=== PATIENT | male | born 1940 | race Caucasian/White ===

== ENCOUNTER → 2016-10-30 | Outpatient (CLI) | payer OTHER, MEDICARE ==
[~2016-10-30] MED LIST: ASPI81TA28 PO; ATOR-24 PO; CLOP1TAB15 PO; DOCU-105 PO; ENOX80IN SQ; FLUT0.15 NAE; FRS/40 PO; FURO-85 PO; HYDR0.2C10 TD; IMDSR30 PO; LOSA25TA18 PO; MAGN400T6 PO; METO1TAB66 PO; NITR0.4S UT; OXGN; OXYC-57 PO; POTA10CA28 PO; PRLSR20 PO; SPIR25TA PO; TRAM-10 PO; WARF10TA PO; WARF5TAB7 PO; WARF7.5T PO
[2016-10-30 14:05] LABS: BLOOD UREA NITROGEN 32 mg/dl (7-18)
== END | disposition home or self-care (01) ==
LOC: C.LABBC 11:29
PROVIDERS: ATTEND Orthopaedic Surgery
DX: M25.512 Pain in left shoulder (principal)

== ENCOUNTER 2016-11-24 08:43 | Inpatient (IN) | payer OTHER, MEDICARE ==
[2016-11-09 13:39] VITALS: BMI 34.0
--- NOTE | 2016-11-09 14:14 | PAT Medication Instructions ---
Service Date Nov 09, 2016. Current Home Medication List Aspirin (Aspirin Ec), 81 MG PO Q2D Atorvastatin (Lipitor), 40 MG PO QPM Clopidogrel (Plavix), 75 MG PO QAM Docusate Sodium (Dulcolax Stool Softener), 100 MG PO HS PRN for Constipation Fluticasone Propionate (Nasal) (Flonase Allergy Relief), 2 SPRAYS GUERO PRN Furosemide (Lasix), 40 MG PO QAM Home O2 Therapy (Oxygen), 2 LITERS NA HS Hydrocortisone Valerate 0.2% (Westcort 0.2%), 1 APPLN TD BID/PRN Isosorbide Mononitrate (Isosorbide Mononitrate ER), 30 MG PO QPM Losartan Potassium (Cozaar), 25 MG PO QAM Magnesium Oxide (Mag-Ox), 400 MG PO BID Metoprolol Succinate (Toprol Xl), 50 MG PO BID Nitroglycerin (Nitrostat), 0.4 MG UT PRN Omeprazole (Prilosec), 20 MG PO DAILY PRN for PRN Potassium Chloride (Micro-K Ext Rel), 2 TAB PO BID Spironolactone (Aldactone), 25 MG PO QAM Tramadol (Ultram), 50-100 MG PO Q4H PRN for Pain Warfarin Sod (Jantoven), 5 MG PO 2XWEEK Warfarin Sodium (Coumadin), 7.5 MG PO 5XWK Medication Instructions For Your Scheduled Surgery - Check with surgeon/yard inspector for instructions: Aspirin (Aspirin Ec), 81 MG PO Q2D Clopidogrel (Plavix), 75 MG PO QAM Warfarin Sod (Jantoven), 5 MG PO 2XWEEK Warfarin Sodium (Coumadin), 7.5 MG PO 5XWK - Hold the following medications 24 hours prior to surgery: Hydrocortisone Valerate 0.2% (Westcort 0.2%), 1 APPLN TD BID/PRN - Hold the following medications the morning of surgery: Potassium Chloride (Micro-K Ext Rel), 2 TAB PO BID Spironolactone (Aldactone), 25 MG PO QAM Magnesium Oxide (Mag-Ox), 400 MG PO BID Losartan Potassium (Cozaar), 25 MG PO QAM Furosemide (Lasix), 40 MG PO QAM Docusate Sodium (Dulcolax Stool Softener), 100 MG PO HS PRN for Constipation - Take the following medications the morning of surgery with a sip of water: Tramadol (Ultram), 50-100 MG PO Q4H PRN for Pain (okay to take up to 4 hours prior to surgery if needed) Omeprazole (Prilosec), 20 MG PO DAILY PRN for PRN (if needed) Metoprolol Succinate (Toprol Xl), 50 MG PO BID Nitroglycerin (Nitrostat), 0.4 MG UT PRN (if needed) Fluticasone Propionate (Nasal) (Flonase Allergy Relief), 2 SPRAYS GUERO PRN (if needed) - Take the following medications as scheduled the night before surgery: Tramadol (Ultram), 50-100 MG PO Q4H PRN for Pain (if needed) Potassium Chloride (Micro-K Ext Rel), 2 TAB PO BID Metoprolol Succinate (Toprol Xl), 50 MG PO BID Nitroglycerin (Nitrostat), 0.4 MG UT PRN (if needed) Magnesium Oxide (Mag-Ox), 400 MG PO BID Isosorbide Mononitrate (Isosorbide Mononitrate ER), 30 MG PO QPM Home O2 Therapy (Oxygen), 2 LITERS NA HS Fluticasone Propionate (Nasal) (Flonase Allergy Relief), 2 SPRAYS GUERO PRN (if needed) Docusate Sodium (Dulcolax Stool Softener), 100 MG PO HS PRN for Constipation ( if needed) Atorvastatin (Lipitor), 40 MG PO QPM If you have any questions please call us at [phone] or [phone] or [phone]
--- NOTE | 2016-11-09 14:49 | DIAGNOSTIC IMAGING REPORT ---
CHEST 2 VIEWS ROUTINE CLINICAL HISTORY: PAT preoperative evaluation COMPARISON STUDY: 06/16/2014 FINDINGS: Mild stable cardiomegaly. Permanent unipolar cardiac pacemaker. Chronic pleural and parenchymal change bilaterally. No acute infiltrate. IMPRESSION: Chronic and postoperative change. No acute process. The above report was generated using voice recognition software. It may contain grammatical, syntax or spelling errors. Electronically signed by: Ryan Montenegro M.D. 11/09/2016 2:48 PM Dictated Date/Time: 11/09/2016 2:43 PM
[2016-11-09 14:51] LABS: BASO % 0.6 %; BASO ABS # 0.03 K/uL (0-0.2); COMPLETE YES; EOS % 1.6 %; HEMATOCRIT 35.5 % (42-52); IG% 0.2 %; LYMPH % 14.7 %; LYMPH ABS # 0.75 K/uL (1.2-3.4); MEAN CORPUSCULAR HEMOGLOBIN 31.1 pg (25-34); MEAN CORPUSCULAR HGB CONC 33.8 g/dl (32-36); MEAN PLATELET VOLUME 10.6 fL (7.4-10.4); MONO % 10.4 %; NEUT % 72.5 %; PLATELET COUNT 203 K/uL (130-400); RED BLOOD COUNT 3.86 M/uL (4.7-6.1); WHITE BLOOD COUNT 5.11 K/uL (4.8-10.8)
[2016-11-09 15:00] LABS: INR 2.3 (0.9-1.1); PARTIAL THROMBOPLASTIN RATIO 1.6; PROTHROMBIN TIME (PATIENT) 25.2 SECONDS (9.0-12.0)
[2016-11-09 15:04] LABS: BUN/CREATININE RATIO 18.3 (10-20); CALCIUM 9.2 mg/dl (8.5-10.1); CREATININE 1.8 mg/dl (0.60-1.40); POTASSIUM 4.4 mmol/L (3.5-5.1)
[2016-11-09 17:38] LABS: ESTIMATED AVERAGE GLUCOSE 154 mg/dl; HA1C FLAG Normal (Normal)
--- NOTE | 2016-11-23 08:39 | HISTORY & PHYSICAL EXAMINATION ---
DATE OF ADMISSION: 11/24/2016 CHIEF COMPLAINT: Medium sized rotator cuff tear of the right shoulder. HISTORY OF PRESENT ILLNESS: Satish is a 76-year-old male who has been having 7-month history of right shoulder pain. CT arthrogram of the shoulder was diagnostic for medium sized rotator cuff tear. After failing extensive conservative treatment including multiple injections, he elected to undergo an arthroscopic rotator cuff repair. PAST MEDICAL HISTORY: Significant for dyslipidemia, type 2 diabetes, hypertension, spinal stenosis, chest pain, anemia, pleural effusions, hypokalemia, supraventricular tachycardia, pulmonary nodules, GERD, CHF, coronary artery disease, systolic CHF, history of paroxysmal supraventricular tachycardia, mitral valve regurgitation, shortness of breath, respiratory failure, anemia, and gout. PAST SURGICAL HISTORY: Significant for heart catheterizations and stent placement as well as pacemaker placement, and mitral valve repair. MEDICATIONS: Include aspirin 81 mg daily, Lipitor 40 mg daily, Plavix 75 mg daily, Dulcolax 100 mg at night, Flonase 2 sprays as needed, Lasix 40 mg daily, hydrocortisone cream, isosorbide 30 mg daily, Cozaar 25 mg daily, magnesium oxide 400 mg twice a day, Toprol-XL 50 mg twice a day, Nitrostat 0.4 mg as needed, Prilosec 20 mg daily, oxygen 2 liters at night, potassium 20 mEq twice a day, Aldactone 25 mg daily, Ultram 50 mg as needed for pain, Coumadin 5 mg twice a week and 7.5 mg 5 days a week. ALLERGIES: CIPRO, DOXYCYCLINE AND SULFA. FAMILY HISTORY: Noncontributory. SOCIAL HISTORY: He is , 4 kids. Rarely drinks. Smokes a pack a day for 35 years. Moderately active. REVIEW OF SYSTEMS: He complains of right shoulder pain. All other pertinent review of systems are negative. PHYSICAL EXAMINATION: GENERAL: He is awake, alert and oriented x3. He is in no apparent distress. He is very pleasant. HEAD, EYES, EARS, NOSE, AND THROAT: Pupils are equal, round and reactive to light. Extraocular motion intact. Oral mucosa is pink and moist. HEART: Regular rate per radial pulse. LUNGS: Anjana symmetrically bilaterally with no audible breath sounds. ABDOMEN: Soft, nontender, nondistended. MUSCULOSKELETAL: On physical examination of his shoulder he has 110 degrees of forward elevation, 110 degrees of abduction. He has 4/5 muscle strength with full can testing, 5/5 muscle strength with external rotation. Mildly positive belly press test. He has pain in the far anterior lateral subacromial space. IMAGING: A CT arthrogram of the shoulder does show a medium sized anterior supraspinatus rotator cuff tear. There is also some tendinopathy of the long head of the biceps tendon and possible partial tearing of the upper border of the subscapularis. IMPRESSION: Medium sized right rotator cuff tear. PLAN: Will proceed with an arthroscopic rotator cuff repair and possible biceps tenodesis. Postoperatively, he will be placed in an arm sling and discharged to home on oral pain medications if his cardiac status is okay. If he has any cardiac issues during the surgery or afterwards will be quick to let him stay per Dr. Jerez's request.
[~2016-11-24] VITALS: Ht 175.3 cm; Wt 108.0 kg
[2016-11-24] VITALS (10 sets, daily range): BP systolic 102–136; BP diastolic 59–82; PULSE 64–88; TEMP 36.3–37.5; O2SAT 93–98; Ht 175.3 cm; Wt 108.0 kg
[~2016-11-24 08:43] MED LIST changes: +ACETAMINOPHEN 500 MG TAB PO SCH; +CEFAZOLIN 2000 MG/60 ML D5W 60 ML IV SCH; -ENOX80IN SQ; -FURO-85 PO; +LACTATED RINGER'S 1000ML IV SCH; -OXYC-57 PO; +ROPIVACAINE 0.5% 5 MG/ML 30 ML VIAL ONE; -WARF10TA PO
[2016-11-24] MEDS ORDERED: ONDANSETRON INJ 2 MG/ML 2 ML VIAL IV PRN ×3 (09:15→14:15)
[2016-11-24] MEDS ORDERED: ATROPINE SULFATE 0.1 MG/ML 5ML SYR IV PRN (09:15)
[2016-11-24] MEDS ORDERED: EpHEDrine SULFATE INJ 50 MG/ML AMP IV PRN (09:15)
[2016-11-24] MEDS ORDERED: HYDROmorphone INJ 1 MG/ML SYR IV PRN (09:15)
--- NOTE | 2016-11-24 09:35 | History & Physical Bridge Note ---
H&P Re-Evaluation Bridge Note: I have examined the patient, reviewed the History & Physical and in the interval since the performance of the History & Physical I have noted the following changes of clinical significance: No changes noted
[2016-11-24 10:01] LABS: PARTIAL THROMBOPLASTIN RATIO 1.1; PROTHROMBIN TIME (PATIENT) 10.8 SECONDS (9.0-12.0)
[2016-11-24] MEDS ORDERED: ENOX80IN SQ (10:04)
[2016-11-24] MEDS ORDERED: ACETAMINOPHEN 1000 MG/100 ML IV IV SCH (10:15)
[2016-11-24] MEDS ORDERED: MIDAZOLAM HCL 1 MG/ML 2ML VIAL ONE (11:37)
[2016-11-24] MEDS ORDERED: FENTANYL CITRATE INJ 50 MCG/1 ML 2 ML VIAL ONE (11:37)
[2016-11-24] MEDS ORDERED: BUPIVACAINE/EPINEPHRINE 0.5% MPF 1:200,000 10 ML VIAL ONE ×2 (11:54→11:55)
[2016-11-24] MEDS ORDERED: EpINEphrine HCL INJ 1 MG/ML 5ML SYRINGE ONE (11:54)
[2016-11-24] MEDS ORDERED: ROCURONIUM BROMIDE 10 MG/ML 5 ML VIAL IV ONE (12:31)
[2016-11-24] MEDS ORDERED: NEOSTIGMINE METHYLSULFATE 5 MG/5 ML SYR ONE (12:31)
[2016-11-24] MEDS ORDERED: PROPOFOL IV EMULSION 10 MG/ML 20 ML VIAL IV ONE (12:31)
[2016-11-24] MEDS ORDERED: ONDANSETRON INJ 2 MG/ML 2 ML VIAL ONE (12:31)
[2016-11-24] MEDS ORDERED: LIDOCAINE HCL 2% 2 ML VIAL (20MG/ML) ONE (12:31)
[2016-11-24] MEDS ORDERED: DEXAMETHASONE SOD INJ 4 MG/ML VIAL ONE (12:31)
[2016-11-24] MEDS ORDERED: GLYCOPYRROLATE INJ 0.2 MG/ML VIAL ONE (12:31)
[2016-11-24] MEDS ORDERED: LARYING-O-JET KIT (LTA) ONE ×2 (12:32)
[2016-11-24] MEDS ORDERED: ETOMIDATE 2 MG/ML 20 ML VIAL IV ONE (12:32)
[2016-11-24] MEDS ORDERED: ATROPINE SULFATE 1MG/2.5ML SYR ONE (13:24)
--- NOTE | 2016-11-24 13:56 | [facility] Post Operative Brief Note ---
Immediate Operative Summary Operative Date Nov 24, 2016. Pre-Operative Diagnosis Medium Sized Rotator Cuff Tear of the Right Shoulder Post-Operative Diagnosis Medium Sized Rotator Cuff Tear of the Right Shoulder Procedure(s) Performed Right Shoulder: Arthroscopy, Medium Rotator Cuff Repair Surgeon Dr. Lozano Precinct Captain Surgeon(s) NIEVES Almeida Estimated Blood Loss 50 ml Findings as above Specimens non per surgeon Complication(s) None Disposition Recovery Room / PACU
[2016-11-24] MEDS ORDERED: METOCLOPRAMIDE HCL INJ 5 MG/ML 2 ML VIAL IV PRN (14:00)
[2016-11-24] MEDS ORDERED: FLUTICASONE PROPIONATE NA SPR 16 GM BTL NAE PRN (14:00)
[2016-11-24] MEDS ORDERED: PANTOprazole SOD 40 MG TAB PO PRN (14:00)
[2016-11-24] MEDS ORDERED: MoRPHine SULFATE 2 MG/ML CARP IV PRN (14:00)
[2016-11-24] MEDS ORDERED: DOCUSATE SODIUM 100 MG CAP PO PRN (14:00)
[2016-11-24] MEDS ORDERED: NITROGLYCERIN 0.4 MG SL PER TAB CHARGE UT PRN (14:00)
[2016-11-24] MEDS ORDERED: OXYCODONE/ACETAMINOPHEN 5-325 TAB PO PRN ×3 (14:00→14:15)
[2016-11-24] MEDS ORDERED: OXYC-57 PO (14:11)
[2016-11-24] MEDS ORDERED: SODIUM CHLORIDE 0.9% 1000ML 1,000 ML IV SCH (14:13)
--- NOTE | 2016-11-24 14:13 | Discharge Instructions ---
Discharge Instructions Date of Service Nov 24, 2016. Admission Reason for Admission: Full Thickness Rotator Cuff Tear Discharge Discharge Diagnosis / Problem: SAME ABOVE Discharge Goals Goal(s): Decrease discomfort, Improve function Activity Recommendations Activity Limitations: as noted below Lifting Limitations: until after follow-up appointment Exercise/Sports Limitations: until after follow-up appointment Shower/Bathe: tomorrow . Instructions / Follow-Up Instructions / Follow-Up MEDICATIONS: * Resume previous medications unless instructed otherwise by your surgeon. * Always take pain medication on a full stomach or with food to avoid upset stomach. * Do not drink alcohol or drive while taking narcotics. * Ibuprofen or Tylenol may be taken if narcotic not needed. SPECIAL CARE INSTRUCTIONS: __ None _X_ Keep extremity elevated and iced x 48 hours; apply ice 20-30 minutes 8-10 times/day. May remove at night. __ Sling __24 hrs/day __ Remove at night _X_ Shoulder Immobilizer (MAY REMOVE AFTER 48 HOURS ONLY FOR THERAPY AND TO SHOWER) _X_ 24 hrs/day __ Remove at night _X_ Dressing __ Maintain until seen in office, may shower with plastic over site _X_ Remove dressings in 24-48 hours and then may shower _X_ Cover incisions with band-aids after showering _X_ Do not remove PRINEO. THERE IS A PURPLE TINTED BANDAGE ON THE FRONT OF THE SHOULDER THAT LOOKS LIKE MESH. IT WILL BE UNDER 2 LAYERS OF WHITE DRESSING. DO NOT REMOVE THE PURPLE MESH THAT IS ON THE SKIN. Call physician if chills or temperature rises above 102 degrees or pain unrelieved by prescribed pain medications at . . Current Hospital Diet Patient's current hospital diet: Regular Diet Discharge Diet Recommended Diet: N/A Procedures Procedures Performed: Right Shoulder: Arthroscopy, Medium Rotator Cuff Repair Pending Studies Studies pending at discharge: no Laboratory Results Hemoglobin A1c Test 11/09/16 14:18 Range/Units Estimated Average Glucose 154 mg/dl Hemoglobin A1c 7.0 H 4.5-5.6 % Work Instructions Return To Work: after follow-up Lifting Limitations: NO LIFTING WITH LEFT ARM Medical Emergencies . Who to Call and When: Medical Emergencies: If at any time you feel your situation is an emergency, please call 911 immediately. . Non-Emergent Contact Non-Emergency issues call your: Primary Care Provider Call Non-Emergent contact if: you have a fever, temperature is above 101.5 . "Provider Documentation" section prepared by Andre Santana. . VTE Core Measure Inpt VTE Proph given/why not?: Treatment not indicated
--- NOTE | 2016-11-24 14:29 | OPERATIVE REPORT ---
DATE OF OPERATION: 11/24/2016 PREOPERATIVE DIAGNOSIS: Supraspinatus rotator cuff tear of the right shoulder. POSTOPERATIVE DIAGNOSES: Supraspinatus and subscapularis rotator cuff tears of the right shoulder with severe biceps tendinopathy and external impingement. PROCEDURE: Right shoulder diagnostic arthroscopy with limited debridement, acromioplasty and then an open rotator cuff repair and biceps tenodesis through a deltopectoral approach. SURGEON: Dr. Gwyn Lozano. APPLICATION TRAINER: Gilberto Santana PA-C, whose assistance was necessary for positioning the arm and helping with instrumentation. ANESTHESIA: General with a right interscalene nerve block. COMPLICATIONS: None. CONDITION: Stable to PACU. INDICATIONS: Satish is a pleasant 76-year-old male who has been dealing with right shoulder pain. CT scan of his shoulder did show an anterior superior rotator cuff tear. After failing conservative treatment, he elected to undergo arthroscopy. DESCRIPTION OF PROCEDURE: On 11/24/2016, he arrived at [facility] for the above procedure. He was seen in the preoperative holding area and the operative extremity was identified and signed. He was given a preoperative antibiotic and a right interscalene nerve block. He was taken back to the operating room, laid on the table in supine position and put under general anesthesia. He was then put into the beachchair position. The right shoulder was prepped and draped in sterile fashion. Time-out was done and the patient and operative extremity was properly identified. A scope was introduced into the posterior portal. Diagnostic arthroscopy showed no cartilage damage to the humeral head or the glenoid. There was some fraying of the anterior labrum and severe fraying and a superior labral tear of the superior labrum. The biceps tendon was subluxated medially with significant tendinopathy. There was a tear of the upper half of the subscapularis. There was a tear of the entire supraspinatus. Infraspinatus and teres minor were intact. The scope was put into the subacromial space. A lateral portal was made. A shaver was used to do a complete subacromial and subdeltoid bursectomy. An ablator was used to tease the coracoacromial ligament off the undersurface of the acromion and a 5-0 eve was used to complete an acromioplasty of a very large Bigliani type 3 acromion. A shaver was used to remove any excess debris and attention was turned to the rotator cuff. There was an anterior superior tear involving the entire supraspinatus and upper portion of the subscapularis. Subscapularis portion was retracted back significantly past the level of the glenoid. I decided to do this repair open. A small deltopectoral incision was then made. Dissection was taken down through the deltopectoral interval and the anterior shoulder was exposed. The long head of the biceps tendon was tenotomized for a later tenodesis. The greater tuberosity was prepared with a ring curette and a microfracture. The rotator cuff was then fixed with an Arthrex SpeedBridge configuration using BioComposite SwiveLock suture anchors and FiberTape. This gave a nice knotless SpeedBridge repair. Significant time was then spent freeing up the subscapularis. Once the subscapularis tissue was appropriately freed up, I fixed the upper border with a modified Arthrex SpeedBridge configuration using a single 4.75-mm BioComposite SwiveLock suture anchor along the articular margin loaded with FiberTapes and the tapes were brought down to a single lateral row anchor. This gave a nice knotless modified SpeedBridge repair. The stay sutures of the lateral anchors were left intact and passed through the long head of the biceps tendon for an open biceps tenodesis. The wound was irrigated. The shoulder was brought through a full range of motion and the cuff seems to be stable. The scope was placed back into the glenohumeral joint and the articular margins of the rotator cuff had been restored. Pictures were taken. Arthroscopic instruments were removed from the shoulder. Portal sites were closed with 3-0 nylon and the skin was closed with 2-0 Vicryl and then 0 Prolene suture and a Prineo dressing. He was then placed in a soft dressing and an abduction arm sling. He was then extubated, transferred to a litter and taken to the postanesthesia care unit in stable condition. He tolerated the procedure well. I attest to the content of the Intraoperative Record and any orders documented therein. Any exception s are noted below.
[2016-11-24] MEDS: FENTANYL CITRATE INJ 50 MCG/1 ML 2 ML VIAL IV PRN ×4 (14:40→14:55)
--- NOTE | 2016-11-24 14:59 | Anesthesiology Progress Note ---
Anesthesia Post Op Note Date & Time Nov 24, 2016 at 14:57 Vital Signs Pain Intensity: 4.0 Vital Signs Past 12 Hours Date Time Temp Pulse Resp B/P (MAP) Pulse Ox O2 Delivery O2 Flow Rate FiO2 11/24/16 14:40 71 18 141/72 99 Room Air 11/24/16 14:30 66 18 138/73 99 Mask 10 11/24/16 14:20 63 18 137/81 99 Mask 10 11/24/16 14:11 36. 71 20 134/72 98 Mask 10 11/24/16 09:00 36.8 81 20 136/82 (100) 97 Room Air Notes Mental Status: alert / awake / arousable, participated in evaluation Pt Amnestic to Procedure: Yes Nausea / Vomiting: adequately controlled Pain: adequately controlled Airway Patency, RR, SpO2: stable & adequate BP & HR: stable & adequate Hydration State: stable & adequate Anesthetic Complications: no major complications apparent Pt doing well in PACU. Pain controlled. VSS. Awake without c/o CP or SOB. Will monitor patient overnight in the telemetry unit in light of bradycardic event intraop considering his extensive cardiac comorbodities. Pt and Dr. Lozano aware of plan.
[2016-11-24] MEDS ORDERED: POTASSIUM CHLORIDE INJ 10 MEQ in SODIUM CHLORIDE 0.9% 1000ML 1,000 ML IV SCH (16:30)
[2016-11-24] MEDS: TRAMADOL HCL 50 MG TAB PO PRN (16:48)
[2016-11-24] MEDS ORDERED: WARFARIN SOD 7.5 MG TAB PO SCH (17:00)
--- NOTE | 2016-11-24 17:57 | Cardiology Consultation ---
Cardiology Consultation Date of Consultation: Nov 24, 2016 History of Present Illness Satish Holcomb is a 76 year old male seen in cardiology consultation per the request of Dr Lozano for the evaluation of bradycardia. The patient underwent right rotator cuff repair today. Per report of his nurse , there was transient bradycardia with heart rate in the 20 beat per minute range reportedly and the patient required dose of atropine in the operating room. 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 The patient was seen in the PCU in room 241-1. The patient was in good spirits , and no subjective complaints. His pain was well-controlled. His family is keeping him company. The patient typically follows with Dr. Jerez of our practice. He last been seen in preoperative cardiac evaluation on 11/17/16 by Janet GLEASON and was noted to be optimized from a cardiac standpoint. The patient has a complex past cardiac and surgical history. 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 The patient went on to recover after a long hospital stay and has a residual ischemic cardiomyopathy with an ejection fraction of 30 % range. The patient also developed functional mitral regurgitation due to the infarct and subsequently underwent repeat cardiac catheterization and then mitral valve repair in 2014. Past Medical/Surgical History Problem List: Medical Problems: (1) Anemia (2) CAD (coronary artery disease) (3) CHF (congestive heart failure) (4) Diabetes mellitus, type II (5) Dyslipidemia (6) GERD (gastroesophageal reflux disease) (7) Gout (8) History of PSVT (paroxysmal supraventricular tachycardia) (9) Hypertension (10) Mitral valve regurgitation (11) Pulmonary nodules (12) Rotator cuff tear arthropathy of right shoulder (13) Spinal stenosis of lumbar region Surgical Problems: (1) H/O mitral valve replacement (2) Status post cardiac catheterization (3) Status post coronary artery stent placement History Past Medical History: Ischemic cardiomyopathy -Most recent echocardiogram performed in November 2016 included calculated left ventricular ejection fraction of 22%, mitral valve repair with stable function, echo was unchanged compared to prior study in 2015 Nonischemic nuclear stress test with large area of infarct in 03/2015 History of CAD s/p multiple coronary interventions including acute thrombotic occlusion in 2013, as described above Mitral valve repair in April 2014. Paroxysmal atrial flutter, currently NSR. Chronic anticoagulation therapy due acute thrombotic occlusion and history of PAF. Hypertension Dyslipidemia Review Of Systems See above for pertinent positives & negatives. A total of 10 systems reviewed and were otherwise negative. Allergies Coded Allergies: Ciprofloxacin (Verified Allergy, Severe, ANAPHYLAXIS, 11/24/16) Doxycycline (Verified Allergy, Severe, ANAPHYLAXIS, 11/24/16) Sulfa Antibiotics (Verified Allergy, Severe, ANAPHYLAXIS - JACQUELINE. LASIX, ) Medications Reported Home Medications Medications Dose Route/Sig Max Daily Dose Days Date Category Dose Instructions Percocet 5MG/325MG (Oxycodone/Acetaminophen) Tab 1-2 Tablets PO Q6 PRN 11/24/16 Rx Lovenox (Enoxaparin Sodium) 80 Mg/0.8 Ml Inj 100 Mg SQ Q12H 11/24/16 Reported Oxygen Gas 2 Liters NA HS 11/09/16 Reported Cozaar (Losartan Potassium) 25 Mg Tab 25 Mg PO QAM 11/09/16 Reported Isosorbide Mononitrate ER (Isosorbide Mononitrate) 30 Mg Tabcr 30 Mg PO QPM 11/09/16 Reported Lasix (Furosemide) 40 Mg Tab 40 Mg PO QAM 11/09/16 Reported MAY TAKE SECOND DOSE IF HAS EDEMA Ultram (Tramadol HCl) 50 Mg Tab 50-100 Mg PO Q4H PRN 11/09/16 Reported Aldactone (Spironolactone) 25 Mg Tab 25 Mg PO QAM 11/09/16 Reported Jantoven (Warfarin Sodium) 5 Mg Tab 5 Mg PO 2XWEEK 11/09/16 Reported Sunday Flonase Allergy Relief (Fluticasone Propionate (Nasal)) 50 Mcg/Act Spr 2 Sprays GUERO PRN 11/09/16 Reported Prilosec (Omeprazole) 20 Mg Capcr 20 Mg PO DAILY PRN 05/13/14 Reported Micro-K Ext Rel (Potassium Chloride) 10 Meq Capcr 2 Tab PO BID 05/13/14 Reported 2 TABLETS BY MOUTH EVERY MORNING, 2 TABLETS BY MOUTH AT NOON. ON MON, SUN AND FRI, TAKE: 3 TABLETS IN MORNING AND 2 TABLETS AT NOON. Coumadin (Warfarin Sodium) 7.5 Mg Tab 7.5 Mg PO 5XWK 05/13/14 Reported tu, wed, thurs, sat, sun Mag-Ox (Magnesium Oxide) 400 Mg Tab 400 Mg PO BID 02/11/14 Reported Westcort 0.2% (Hydrocortisone Valerate) Cr 1 Appln TD BID/PRN 02/11/14 Reported Lipitor (Atorvastatin Calcium) 40 Mg Tab 40 Mg PO QPM 02/11/14 Reported Nitrostat (Nitroglycerin) 0.4 Mg Sub 0.4 Mg UT PRN 12/08/13 Reported NEEDED FOR CHEST PAIN : ONE TABLET UNDER THE TONGUE EVERY 5 MINUTES UP TO 3 DOSES. Toprol Xl (Metoprolol Succinate) 50 Mg Tab 50 Mg PO BID 12/08/13 Reported Aspirin Ec (Aspirin) 81 Mg Tab 81 Mg PO Q2D 12/08/13 Reported AM Plavix (Clopidogrel Bisulfate) 75 Mg Tab 75 Mg PO QAM 09/25/13 Reported Dulcolax Stool Softener (Docusate Sodium) 100 Mg Cap 100 Mg PO HS PRN 06/23/13 Reported Physical Exam Vital Signs (Last 8hrs): Last 8 Hrs Date Time Temp Pulse Resp B/P (MAP) Pulse Ox O2 Delivery O2 Flow Rate FiO2 11/24/16 15:10 36.4 78 18 143/81 97 Nasal Cannula 2 11/24/16 15:00 36.4 76 18 139/71 97 Nasal Cannula 2 11/24/16 14:50 77 18 128/82 96 Nasal Cannula 2 11/24/16 14:40 71 18 141/72 99 Nasal Cannula 2 11/24/16 14:30 66 18 138/73 99 Mask 10 11/24/16 14:20 63 18 137/81 99 Mask 10 11/24/16 14:11 36. 71 20 134/72 98 Mask 10 General Appearance: Alert and Oriented x3. NAD. Head: Normocephalic Atraumatic. Eyes: PERRLA, EOMI, conjunctiva and sclera clear Neck: Supple. No carotid bruits noted. No JVD. No HJD. Respiratory: Breath sounds clear to auscultation bilaterally. No w/r/r. Cardiovascular: Reg rate and rhythm. S1 and S2 noted. No murmurs, rubs, gallops. PMI non displace. Abdomen: Normal bowel sounds, soft nontender. no abdominal bruits. Extremities: No edema, no clubbing or cyanosis. distal pulses 2/4 bilaterally. Neuro: No focal deficits. Psychiatric: Normal affect. Data Last 24 Hours Test 11/24/16 09:15 11/24/16 09:41 11/24/16 14:16 11/24/16 17:01 Bedside Glucose 131 mg/dl 123 mg/dl Prothrombin Time 10.8 SECONDS Prothromb Time International Ratio 1.0 Activated Partial Thromboplast Time 28.9 SECONDS Partial Thromboplastin Ratio 1.1 EKG performed today per my request at the bedside 11/24/16 at 1708: Sinus rhythm at 81 bpm with first-degree AV block, occasional PVCs, no significant ST changes. Telemetry reviewed since patient had arrived to the telemetry floor, reveals a brief episode of Wenckebach block which has since resolved. The lowest heart rate noted was in the 45 bpm range Most recent remote device check was performed 09/25/16: Stable function with appropriate energy longevity, the pacemaker default mode is VVI at 40 bpm. Assessment & Plan Impression: 76-year-old male 1. Postop, right rotator cuff repair 2. History of severe ischemic cardio myopathy, LVEF 22% on most recent echocardiogram earlier this month, well compensated from a volume standpoint 3. Transient type I secondary heart block, resolved 4. History of perioperative severe myocardial infarction complicated by cardiogenic shock, [address] postop after lumbar spine decompression surgery. Plan: EKG reveals stable findings. Given the patient's ischemic cardio myopathy, recommend continuing beta jimmy therapy. Patient does have a single chamber AICD for primary prevention of sudden cardiac , and if his heart rate was to go below 40 bpm, ventricular pacing would commence. Although there are telemetry strips on his chart taken from the operating room today, I do not see any strips that document the profound bradycardia for which atropine was administered. I think the intermittent Wenckebach block is likely due to high vagal tone. Recommend continued management of his pain which seems we are doing a good job with the present. My suspicion for recurrent myocardial ischemia is low. Although of course he is at risk for postoperative bleeding, given his risk of coronary thrombosis, he is to receive his aspirin, clopidogrel, Coumadin, and Lovenox without interruption. He is due for a dose of Lovenox 100 mg subcutaneously at 2100 tonight. Aspirin clopidogrel are ordered for tomorrow. I dose of Coumadin as ordered for this evening. I have requested BMP and magnesium level. Dr Quinteros is radiation control specialist for our group [facility] and in am. Good Rothman DO
[2016-11-24 18:40] LABS: BUN/CREATININE RATIO 18.1 (10-20); CALCIUM 8.3 mg/dl (8.5-10.1); CREATININE 1.5 mg/dl (0.60-1.40); MAGNESIUM 2.5 mg/dl (1.8-2.4); POTASSIUM 4.4 mmol/L (3.5-5.1)
--- NOTE | 2016-11-24 19:09 | Cardiology Progress Note ---
Cardiology Progress Note Date of Service Nov 24, 2016. Cardiology Progress Note Chem panel results are stable.
[2016-11-24] MEDS: MAGNESIUM OXIDE 400 MG TAB PO SCH (20:27)
[2016-11-24] MEDS: METOPROLOL SUCC 50MG EXT REL TAB PO SCH (20:27)
[2016-11-24] MEDS: POTASSIUM CHLORIDE 10 MEQ TABCR PO SCH (20:28)
[2016-11-24] MEDS: ENOXAPARIN 100 MG/1ML SYR SQ SCH (20:28)
[2016-11-24] MEDS ORDERED: ISOSORBIDE MONONITRATE 30 MG TABCR PO SCH (21:00)
[2016-11-24] MEDS ORDERED: ATORVASTATIN 40 MG TAB PO SCH (21:00)
[2016-11-25 03:56] VITALS: BP 101/60; PULSE 83; TEMP 37.2; O2SAT 95
[2016-11-25 07:17] VITALS: BP 113/60; PULSE 76; TEMP 37; O2SAT 96
[2016-11-25 07:23] LABS: PROTHROMBIN TIME (PATIENT) 11.1 SECONDS (9.0-12.0)
[2016-11-25] MEDS: TRAMADOL HCL 50 MG TAB PO PRN (07:46)
[2016-11-25] MEDS: METOPROLOL SUCC 50MG EXT REL TAB PO SCH (07:46)
[2016-11-25] MEDS: POTASSIUM CHLORIDE 10 MEQ TABCR PO SCH (07:47)
[2016-11-25] MEDS: ENOXAPARIN 100 MG/1ML SYR SQ SCH (07:47)
[2016-11-25] MEDS: MAGNESIUM OXIDE 400 MG TAB PO SCH (07:47)
[2016-11-25] MEDS ORDERED: SPIRONOLACTONE 25 MG TAB PO SCH (09:00)
[2016-11-25] MEDS ORDERED: LOSARTAN POTASSIUM 25 MG TAB PO SCH (09:00)
[2016-11-25] MEDS ORDERED: FUROSEMIDE 40 MG TAB PO SCH (09:00)
[2016-11-25] MEDS ORDERED: CLOPIDOGREL BISULFATE 75 MG TAB PO SCH (09:00)
[2016-11-25 10:50] VITALS: BP 113/60; PULSE 76; TEMP 37; O2SAT 96
--- NOTE | 2016-11-25 13:13 | PROGRESS NOTE ---
DATE: 11/25/2016 CHIEF COMPLAINT: Status post right rotator cuff repair, postop day #1 with postoperative bradycardia. PROGRESS: Satish was seen and examined at bedside today. Overall, he is doing well. He is not having much pain in the arm. He has had no cardiac events overnight and has no complaints. PHYSICAL EXAMINATION: The dressing is clean and dry. He is neurovascularly intact. He is wearing a sling as instructed. IMPRESSION: Status post right shoulder arthroscopy for rotator cuff repair with postoperative bradycardia. PLAN: He was seen by cardiology. After looking at his EKGs, they feel that he is safe for discharge to home for now. He is to continue all his anticoagulation medications and all of his home medications. I will see him in the office in 2 weeks. We will discharge him home today.
--- NOTE | 2016-11-25 14:23 | DISCHARGE SUMMARY ---
DISCHARGE DIAGNOSES: 1. Rotator cuff tear of the right shoulder. 2. Perioperative bradycardia. PROCEDURE: Right shoulder rotator cuff repair on 11/14/[address] Gwyn Lozano. DISCHARGE INSTRUCTIONS: 1. Right arm sling for 6 weeks. 2. Follow up with Dr. Lozano in 2 weeks. 3. Call the office of Dr. Lozano with any questions or concerns. 4. Percocet 5/325 every 6 hours as needed for pain. 5. Aspirin 81 mg twice a day. 6. Lipitor 40 mg daily. 7. Plavix 75 mg daily. 8. Dulcolax 100 mg at night as needed. 9. Lovenox 100 mg q. 12 hours. 10. Flonase 50 mcg daily. 11. Lasix 40 mg daily. 12. Westcort cream as needed. 13. Isosorbide 30 mg daily. 14. Cozaar 25 mg daily. 15. Magnesium oxide 400 mg twice a day. 16. Toprol-XL 50 mg twice a day. 17. Nitrostat 0.4 mg as needed. 18. Prilosec 20 mg as needed. 19. Potassium 10 mEq 2 tabs twice a day. 20. Aldactone 25 mg daily. 21. Ultram 50-100 mg every 4 hours as needed. 22. Coumadin 5 mg twice a week and 7.5 mg the other 5 days. HOSPITAL COURSE: Satish is a 76-year-old male who presented to my office with complaints of right shoulder pain. CT arthrogram of the shoulder showed a rotator cuff tear. After failing conservative treatment, he elected to undergo a rotator cuff repair. On 11/24/2016 he arrived at [facility] and underwent a right rotator cuff repair without complication. He had a right interscalene nerve block and a general anesthetic. Perioperatively, he was having some bradycardia which was concerning the anesthesiologist. Postoperatively, anesthesia asked to keep him and for cardiology to see how he is doing. The welfare manager reviewed him, looked at the EKG strips and fell his heart was stable. He does have a pacemaker. He was continued on all of his anticoagulant medications and all of his cardiac medications as well. On postop day #1, he was doing well, he was not having much pain. He had no cardiac events overnight and he was discharged to home with the above instructions.
[2016-11-26] MEDS ORDERED: ASPIRIN 81 MG ECTAB PO SCH (08:00)
== END 2016-11-25 11:30 | disposition home or self-care (01) | DRG 501 ==
LOC: C.OR 08:43 → C.2T 14:37 → ENRESERV 15:12
PROVIDERS: ADMIT Orthopaedic Surgery; ATTEND Orthopaedic Surgery
PROC: 0LQ10ZZ Repair Right Shoulder Tendon, Open Approach (ICD-10-PCS; principal; 2016-11-24 11:10)
PROC: 0MT Bursae and Ligaments, Resection (ICD-10-PCS; principal; 2016-11-24 11:10)
PROC: 0LM10ZZ Reattachment of Right Shoulder Tendon, Open Approach (ICD-10-PCS; principal; 2016-11-24 11:10)
PROC: 0LU Tendons, Supplement (ICD-10-PCS; principal; 2016-11-24 11:10)
DX: M75.101 Unspecified rotator cuff tear or rupture of right shoulder, not specified as traumatic (principal); I50.20 Unspecified systolic (congestive) heart failure; I44.1 Atrioventricular block, second degree; I11.0 Hypertensive heart disease with heart failure; E11.9 Type 2 diabetes mellitus without complications; M10.9 Gout, unspecified; K21.9 Gastro-esophageal reflux disease without esophagitis; E78.5 Hyperlipidemia, unspecified; Z79.01 Long term (current) use of anticoagulants; Z79.02 Long term (current) use of antithrombotics/antiplatelets; Z79.82 Long term (current) use of aspirin; Z79.899 Other long term (current) drug therapy; Z95.5 Presence of coronary angioplasty implant and graft; Z95.2 Presence of prosthetic heart valve; F17.200 Nicotine dependence, unspecified, uncomplicated

== ENCOUNTER 2017-04-29 13:34 | Emergency (ER) | payer OTHER, MEDICARE ==
[~2017-04-29] VITALS: Ht 175.3 cm; Wt 103.4 kg
[~2017-04-29 13:34] MED LIST changes: -ACETAMINOPHEN 500 MG TAB PO SCH; -CEFAZOLIN 2000 MG/60 ML D5W 60 ML IV SCH; +ENOX80IN SQ; -LACTATED RINGER'S 1000ML IV SCH; +METO-452 PO; -METO1TAB66 PO; +OXYC-57 PO; -ROPIVACAINE 0.5% 5 MG/ML 30 ML VIAL ONE
[2017-04-29 13:45] VITALS: Ht 175.3 cm; Wt 103.4 kg
--- NOTE | 2017-04-29 14:04 | EMERGENCY ROOM VISIT NOTE ---
History Report prepared by Alice: Good Maxwell Under the Supervision of: Dr. Gwyn Quiros M.D. First contact with patient: 13:51 Chief Complaint: FLU LIKE SX Stated Complaint: COUGH, HA[place]NE, FEVER, SORE CHEST, History of Present Illness The patient is a 76 year old male who presents to the Emergency Room with complaints of persistent flu like symptoms for the past three days. The patient states that he has been sweating a lot, he has a fever up to 99, he has a dry cough, body aches, a sore chest from coughing, shortness of breath, diarrhea, mild headache. He denies any nausea, vomiting, abdominal pain, urinary symptoms , recent falls or trauma, and any sick contacts. The patient reports that he has been keeping up with his fluids. The patient has a history of CHF and a defibrillator places, and he is currently on Coumadin, Plavix, and Lovenox. He notes that he is on oxygen at night, and he does not use any breathing treatments. Source of History: patient Onset: three days ago Position: other (global) Quality: other (flu ilke illness) Timing: other (persistent) Associated Symptoms: + fevers, + headache, + cough, + chest pain, + SOB, + diarrhea, No nausea, No vomiting, No abdominal pain, No urinary symptoms Note: Associated symptoms: Body aches Review of Systems See HPI for pertinent positives & negatives. A total of 10 systems reviewed and were otherwise negative. Past Medical & Surgical Medical Problems: (1) Anemia (2) CAD (coronary artery disease) (3) CHF (congestive heart failure) (4) Diabetes mellitus, type II (5) Dyslipidemia (6) GERD (gastroesophageal reflux disease) (7) Gout (8) History of PSVT (paroxysmal supraventricular tachycardia) (9) Hypertension (10) Mitral valve regurgitation (11) Pulmonary nodules (12) Rotator cuff tear arthropathy of right shoulder (13) Spinal stenosis of lumbar region Surgical Problems: (1) H/O mitral valve replacement (2) Status post cardiac catheterization (3) Status post coronary artery stent placement Old medical records were reviewed. Nurse's notes were reviewed and I agree with. Family History FH: COPD (chronic obstructive pulmonary disease) FATHER FH: Parkinson's disease MOTHER FH: coronary artery disease BROTHER FH: diabetes mellitus BROTHER FH: hypertension MOTHER FH: stroke MOTHER Social History Smoking Status: Former Smoker Marital Status: Housing Status: lives with family Occupation Status: retired Current/Historical Medications Scheduled Aspirin (Aspirin Ec), 81 MG PO Q2D Atorvastatin (Lipitor), 40 MG PO QPM Clopidogrel (Plavix), 75 MG PO QAM Colchicine (Colchicine), 0.6 MG PO DAILY Fluticasone Propionate (Nasal) (Flonase Allergy Relief), 2 SPRAYS GUERO PRN Furosemide (Lasix), 40 MG PO QAM Home O2 Therapy (Oxygen), 2 LITERS NA HS Isosorbide Mononitrate (Isosorbide Mononitrate ER), 30 MG PO QPM Losartan Potassium (Cozaar), 25 MG PO QAM Magnesium Oxide (Mag-Ox), 400 MG PO BID Metoprolol Succinate (Toprol Xl), 50 MG PO BID Nitroglycerin (Nitrostat), 0.4 MG UT PRN Oseltamivir (Tamiflu), 75 MG PO BID Potassium Chloride (Micro-K Ext Rel), 2 TAB PO BID Potassium Chloride (Micro-K Ext Rel), 10 MEQ PO MWF Spironolactone (Aldactone), 25 MG PO QAM Warfarin Sod (Jantoven), 5 MG PO Q2D Warfarin Sodium (Coumadin), 7.5 MG PO Q2D Scheduled PRN Tramadol (Ultram), 50-100 MG PO Q6H PRN for Pain Allergies Coded Allergies: Ciprofloxacin (Verified Allergy, Severe, ANAPHYLAXIS, 11/24/16) Doxycycline (Verified Allergy, Severe, ANAPHYLAXIS, 11/24/16) Sulfa Antibiotics (Verified Allergy, Severe, ANAPHYLAXIS - JACQUELINE. LASIX, ) Physical Exam Vital Signs Date Time Temp Pulse Resp B/P (MAP) Pulse Ox O2 Delivery O2 Flow Rate FiO2 04/29/17 16:00 79 14 140/79 96 Room Air 04/29/17 14:53 71 04/29/17 14:50 36.9 69 16 141/79 96 Room Air 04/29/17 13:45 37.0 79 18 142/85 96 Room Air Physical Exam General: Non-ill appearing older male in no acute distress. HEENT: Normal cephalic atraumatic. Pupils are equal round and reactive to light. Extraocular movements are intact. Oropharynx is pink with moist mucous membranes. No swelling of the mouth lips or tongue. Neck: Supple with a midline trachea. No meningeal signs or stiffness, no JVD or bruits. No Stridor. Chest: Defibrillator in the left chest. Not red or tender. Clear to auscultation bilaterally. No wheezes or rhonchi. No increased work of breathing. Heart: regular rate and rhythm. Abdomen: Soft nontender, nondistended without rebound guarding or rigidity. Extremities: No cyanosis clubbing or edema. No calf tenderness or assymetry Spine/Back. Non tender to palpation. No CVA tenderness Skin: Good turgor without rashes. Neurologic exam: Cranial nerves two through 12 are intact. Motor and sensation are intact and symmetrical throughout. Medical Decision & Procedures ER Provider Diagnostic Interpretation: Radiology results as stated below per my review and radiologist interpretation: CHEST ONE VIEW PORTABLE HISTORY: 76 years-old Male CHEST PAIN acute atypical chest pain COMPARISON: Chest radiograph 11/09/2016 TECHNIQUE: Portable AP view of the chest FINDINGS: Cardiac silhouette is again moderately enlarged. Single lead left subclavian pacer/AICD appears unchanged. Mild pulmonary vascular congestion without overt pulmonary edema. There is no pneumothorax or large pleural effusion. Linear subsegmental lateral right midlung and right greater than left bibasilar opacities are again noted suggesting areas of scarring/atelectasis. No acute lobar airspace consolidation. Bones of the chest appear grossly intact. IMPRESSION: Cardiomegaly without acute process. The above report was generated using voice recognition software. It may contain grammatical, syntax or spelling errors. Electronically signed by: Ham Rose M.D. 04/29/2017 2:52 PM Dictated Date/Time: 04/29/2017 2:50 PM Laboratory Results 04/29/17 14:30 Red Blood Count 4.35, Mean Corpuscular Volume 89.2, Mean Corpuscular Hemoglobin 30.1, Mean Corpuscular Hemoglobin Concent 33.8, Mean Platelet Volume 11.0, Neutrophils (%) (Auto) 73.6, Lymphocytes (%) (Auto) 10.4, Monocytes (%) (Auto) 12.0, Eosinophils (%) (Auto) 3.7, Basophils (%) (Auto) 0.3, Neutrophils # (Auto ) 2.40, Lymphocytes # (Auto) 0.34, Monocytes # (Auto) 0.39, Eosinophils # (Auto ) 0.12, Basophils # (Auto) 0.01 04/29/17 14:30 Test 04/29/17 14:07 04/29/17 14:30 04/29/17 14:37 04/29/17 14:42 Influenza Type A Antigen POS for Influ A (NEG) Influenza Type B Antigen Neg for Influ B (NEG) White Blood Count 3.26 K/uL (4.8-10.8) Red Blood Count 4.35 M/uL (4.7-6.1) Hemoglobin 13.1 g/dL (14.0-18.0) Hematocrit 38.8 % (42-52) Mean Corpuscular Volume 89.2 fL (80-100) Mean Corpuscular Hemoglobin 30.1 pg (25-34) Mean Corpuscular Hemoglobin Concent 33.8 g/dl (32-36) Platelet Count 161 K/uL (130-400) Mean Platelet Volume 11.0 fL (7.4-10.4) Neutrophils (%) (Auto) 73.6 % Lymphocytes (%) (Auto) 10.4 % Monocytes (%) (Auto) 12.0 % Eosinophils (%) (Auto) 3.7 % Basophils (%) (Auto) 0.3 % Neutrophils # (Auto) 2.40 K/uL (1.4-6.5) Lymphocytes # (Auto) 0.34 K/uL (1.2-3.4) Monocytes # (Auto) 0.39 K/uL (0.11-0.59) Eosinophils # (Auto) 0.12 K/uL (0-0.5) Basophils # (Auto) 0.01 K/uL (0-0.2) RDW Standard Deviation 52.6 fL (36.4-46.3) RDW Coefficient of Variation 16.0 % (11.5-14.5) Immature Granulocyte % (Auto) 0.0 % Immature Granulocyte # (Auto) 0.00 K/uL (0.00-0.02) Anion Gap 8.0 mmol/L (3-11) Est Creatinine Clear Calc Drug Dose 49.6 ml/min Estimated GFR () 50.4 Estimated GFR (Non- 43.5 BUN/Creatinine Ratio 16.6 (10-20) Calcium Level 8.7 mg/dl (8.5-10.1) Total Bilirubin 0.3 mg/dl (0.2-1) Direct Bilirubin < 0.1 mg/dl (0-0.2) Alanine Aminotransferase (ALT/SGPT) 27 U/L (12-78) Alkaline Phosphatase 73 U/L (45-117) Total Creatine Kinase 237 U/L (39-308) Creatine Kinase MB 5.0 ng/ml (0.5-3.6) Creatine Kinase MB Ratio 2.1 (0-3.0) Total Protein 7.7 gm/dl (6.4-8.2) Albumin 3.7 gm/dl (3.4-5.0) Lipase 120 U/L (73-393) Bedside Lactic Acid Venous 1.43 mmol/L (0.90-1.70) Bedside Troponin I < 0.030 ng/ml (0-0.045) Test 04/29/17 15:01 Prothrombin Time 19.0 SECONDS (9.0-12.0) Prothromb Time International Ratio 1.8 (0.9-1.1) Activated Partial Thromboplast Time 38.4 SECONDS (21.0-31.0) Partial Thromboplastin Ratio 1.5 Laboratory studies as stated above per my review. Medications Administered Medications (Trade) Dose Ordered Sig/Clotilde Route Start Time Stop Time Status Last Admin Dose Admin Oseltamivir Phosphate (Tamiflu Cap) 75 mg NOW STAT PO 04/29/17 15:46 04/29/17 15:47 DC 04/29/17 15:57 75 MG ECG Indication: other (flu like symptoms) Rate (beats per minute): 71 Rhythm: normal sinus Findings: PVC (occasional), other (Non-specific T wave abnormality) Comparison ECG Date: 11/25/16 Change: no significant change ED Course 1351: Past medical records reviewed. The patient was evaluated in room B2, and a complete history and physical examination were performed. 1544: Upon reevaluation, the patient is doing well and would like to go home. I discussed the results and treatment plan with him. He verbalized agreement of the treatment plan. The patient was discharged home. 1546: Tamiflu 75mg PO Medical Decision Differentials include, but are not limited to; influenza, acute coronary syndrome, CHF, pneumonia, electrolyte or metabolic abnormality. This patient comes in as described above. He has flulike symptoms that are very consistent with influenza. He does have very complicated medical history however. He looks well on exam and is afebrile here. Given his complicated medical/cardiac history an extensive workup was obtained. This included multiple blood testing and blood cultures, chest x-ray, and EKG. IV access was established. Influenza swab was also obtained. Chest x-ray was unremarkable for for heart failure acutely or pneumonia. EKG shows chronic findings of no acute findings. His blood work was otherwise unremarkable. he has some baseline renal insufficiency. His influenza swab was positive. This is very consistent with the symptoms. He looks well and I will start him on Tamiflu the first dose was given here as well as a prescription. He is to rest and drink plenty of fluids. Follow-up with regular doctor the next 1-2 days for recheck. Return ER if: Worsening of symptoms, any new problems or concerns. They're happy with the plan and he was discharged to home. Medication Reconcilliation Current Medication List: was personally reviewed by me Blood Pressure Screening Patient's blood pressure: Elevated blood pressure Blood pressure disposition: Elevated BP felt to be situational Impression Primary Impression: Influenza Scribe Attestation The scribe's documentation has been prepared under my direction and personally reviewed by me in its entirety. I confirm that the note above accurately reflects all work, treatment, procedures, and medical decision making performed by me. Departure Information Dispostion Home / Self-Care Prescriptions Oseltamivir (Tamiflu) 75 Mg Cap 75 MG PO BID, #10 CAP Prov: Gwyn Quiros M.D. 04/29/17 Referrals Umer Nur M.D. (PCP) Forms HOME CARE DOCUMENTATION FORM, IMPORTANT VISIT INFORMATION Patient Instructions [facility] Additional Instructions Rest. Drink plenty of fluids. Use acetaminophen/Tylenol a maximum 2 pills every 6 hours. Do not take with any other medications that contain acetaminophen Use Tamiflu twice a day for 5 days Return if: Worsening of symptoms, shortness of breath, chest pain, any new problems or concerns Follow-up with your doctor for recheck in 1-2 days
[2017-04-29] MEDS ORDERED: POTA10CA28 PO (14:14)
[2017-04-29] MEDS ORDERED: COLC0.6T54 PO (14:14)
[2017-04-29 14:46] LABS: BASO % 0.3 %; BASO ABS # 0.01 K/uL (0-0.2); EOS % 3.7 %; EOS ABS # 0.12 K/uL (0-0.5); HEMATOCRIT 38.8 % (42-52); HEMOGLOBIN 13.1 g/dL (14.0-18.0); LYMPH % 10.4 %; LYMPH ABS # 0.34 K/uL (1.2-3.4); MEAN CELL VOLUME 89.2 fL (80-100); MEAN CORPUSCULAR HEMOGLOBIN 30.1 pg (25-34); MEAN CORPUSCULAR HGB CONC 33.8 g/dl (32-36); MONO ABS # 0.39 K/uL (0.11-0.59); NEUT % 73.6 %; PLATELET COUNT 161 K/uL (130-400); RED CELL DISTRIBUTION WIDTH SD 52.6 fL (36.4-46.3); WHITE BLOOD COUNT 3.26 K/uL (4.8-10.8)
[2017-04-29 14:50] VITALS: TEMP 36.9
--- NOTE | 2017-04-29 14:53 | DIAGNOSTIC IMAGING REPORT ---
CHEST ONE VIEW PORTABLE HISTORY: 76 years-old Male CHEST PAIN acute atypical chest pain COMPARISON: Chest radiograph 11/09/2016 TECHNIQUE: Portable AP view of the chest FINDINGS: Cardiac silhouette is again moderately enlarged. Single lead left subclavian pacer/AICD appears unchanged. Mild pulmonary vascular congestion without overt pulmonary edema. There is no pneumothorax or large pleural effusion. Linear subsegmental lateral right midlung and right greater than left bibasilar opacities are again noted suggesting areas of scarring/atelectasis. No acute lobar airspace consolidation. Bones of the chest appear grossly intact. IMPRESSION: Cardiomegaly without acute process. The above report was generated using voice recognition software. It may contain grammatical, syntax or spelling errors. Electronically signed by: Ham Rose M.D. 04/29/2017 2:52 PM Dictated Date/Time: 04/29/2017 2:50 PM
[2017-04-29 15:17] LABS: INFLUENZA B ANTIGEN Neg for Influ B (NEG)
[2017-04-29 15:21] LABS: INR 1.8 (0.9-1.1); PTT PATIENT 38.4 SECONDS (21.0-31.0)
[2017-04-29 15:31] LABS: ALBUMIN 3.7 gm/dl (3.4-5.0); ALT/SGPT 27 U/L (12-78)
[2017-04-29 15:32] LABS: ALKALINE PHOSPHATASE 73 U/L (45-117); AST/SGOT 27 U/L (15-37); BLOOD UREA NITROGEN 26 mg/dl (7-18); CALCIUM 8.7 mg/dl (8.5-10.1); CARBON DIOXIDE 26 mmol/L (21-32); CREATININE 1.55 mg/dl (0.60-1.40); GLUCOSE 128 mg/dl (70-99); LIPASE 120 U/L (73-393); POTASSIUM 4.3 mmol/L (3.5-5.1); SODIUM 138 mmol/L (136-145); TOTAL PROTEIN 7.7 gm/dl (6.4-8.2)
[2017-04-29] MEDS ORDERED: OSELTAMIVIR PHOSPHATE 75 MG CAP PO STA (15:46)
[2017-04-29] MEDS ORDERED: OSEL75CA12 PO (15:48)
[2017-04-29 16:00] VITALS: BP 140/79; PULSE 79; O2SAT 96
== END 2017-04-29 16:00 | disposition home or self-care (01) ==
LOC: C.EDB 13:35
DX: J10.1 Influenza due to other identified influenza virus with other respiratory manifestations (principal); I25.10 Atherosclerotic heart disease of native coronary artery without angina pectoris; E11.9 Type 2 diabetes mellitus without complications; E78.5 Hyperlipidemia, unspecified; K21.9 Gastro-esophageal reflux disease without esophagitis; M10.9 Gout, unspecified; I10 Essential (primary) hypertension; I34.0 Nonrheumatic mitral (valve) insufficiency; M51.36 Other intervertebral disc degeneration, lumbar region; Z95.2 Presence of prosthetic heart valve; Z82.49 Family history of ischemic heart disease and other diseases of the circulatory system; Z83.3 Family history of diabetes mellitus; Z87.891 Personal history of nicotine dependence; Z79.01 Long term (current) use of anticoagulants; Z79.82 Long term (current) use of aspirin; Z79.02 Long term (current) use of antithrombotics/antiplatelets; Z79.899 Other long term (current) drug therapy

== ENCOUNTER 2021-11-08 14:26 | Observation (INO) ==
[2021-11-08] MEDS ORDERED: SODIUM CHLORIDE 0.9% 500 ML IV SCH (15:15)
--- NOTE | 2021-11-08 15:27 | Emergency Department Note ---
Impression & Plan Rectal bleeding, Coagulopathy ED Provider Note NAME: DEBORAH HARLEY AGE: 81 SEX: M : 1940 ARRIVES VIA: Walk-In INFORMANT: [Patient] ED PROVIDER(S): [Filiberto Flores MD] CHIEF COMPLAINT: Rectal bleeding HISTORY OF PRESENT ILLNESS: The patient is a 81-year-old male who presents to the ER with rectal bleeding that began just a few hours ago. The patient had gone to urgent care because of a moderately sore area on the rectum that had been present for [address] [facility], he began bleeding, he was referred to the ER. The patient is on Coumadin. Last INR was just over 3. He has not had nausea or vomiting. No fever. No shortness of breath or chest pain. Of note, the patient thought he may have had a hemorrhoid, he was not told by urgent care what they saw on their exam. REVIEW OF SYSTEMS: See HPI for pertinent positives and negatives. A total of ten systems were reviewed and were otherwise negative. PMHx/PSHx: See Below SOCIAL HISTORY: See Below. PHYSICAL EXAM: GENERAL: Patient is in no acute distress. HEENT: No acute trauma, normocephalic atraumatic, mucous membranes moist, no nasal congestion, no scleral icterus. NECK: No stridor, no adenopathy, no meningismus, trachea is midline. LUNGS: Clear to auscultation bilaterally, no wheeze, no rhonchi, breath sounds equal. HEART: Without murmurs gallops or rubs, regular rate and rhythm. ABDOMEN: Soft, nontender, bowel sounds positive, no peritonitis. EXTREMITIES: No cyanosis or edema, full range of motion of all the joints without pain or difficulty, no signs for acute trauma. NEUROLOGIC: Oriented x 3, no acute motor or sensory deficits, no focal weakness. SKIN: No rash, no jaundice, no diaphoresis. Rectal: The patient does have some bright red rectal bleeding by my exam, I cannot tell where the blood is coming from as it continues to pool in the anal area. DIFFERENTIAL DIAGNOSIS: Diverticulosis, AVM, coagulopathy, colitis, inflammatory bowel disease, malignancy, Eva-Manzo tear, esophagitis, peptic ulcer disease, variceal bleed, gastritis, epistaxis, fissure, hemorrhoids, as well as other pathologies. EMERGENCY DEPARTMENT COURSE/PROCEDURES: ECG: Indication was rectal bleeding. The ECG shows a sinus rhythm with a first-degree AV block. The rate is 70. There is no ST elevation, no PVCs. There is poor R wave progression. QTC is 451. Continuous Cardiac Monitoring: An order was placed for continuous cardiac monitoring. The monitor shows a rate of 82 with sinus rhythm with a first review block. MEDICAL DECISION MAKING: There is no leukocytosis. The patient does have a mild anemia, this is baseline when looking back at previous testing. There is a normal platelet count. INR is 2, consistent with his Coumadin use. There was a slight elevation to his creatinine, this is baseline. No significant electrolyte abnormality in need of emergent correction. There was no liver enzyme elevation. ECG shows a sinus rhythm, no obvious ischemia. Cardiac enzyme testing x1 is not consistent with acute cardiac injury. COVID test returned negative. Chest x-ray did not show pneumonia. No free air. Some mild CHF was suggested. On exam, the patient did have bright red rectal bleeding. Patient received IV vitamin K, he was given IV saline. The patient is on Coumadin and bleeding rectally. I think he deserves a hospital stay, he requires observation. Hopefully, with the administration of vitamin K, the bleeding will slow. I spoke with the patient and case management. The on-call hospitalist was consulted. Past Med/Surg History Medical History Anxiety Atrial flutter Transient/post operative per cardio records in the past Recently discovered again incidentally during ECHO CAD (coronary artery disease) (06/23/13) - BMS to ramus intermedius June 2013 - Acute thrombotic occlusion of the ramus with extension to the left anterior descending and left main in the setting of postoperative lumbar decompressive surgery September of 2013, course complicated by cardiogenic shock, acute myocardial infarction, treated with aspiration thrombectomy, and coronary angioplasty. 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 Jerez On home oxygen therapy 2L N/C when sleeping SOB (shortness of breath) on exertion Spinal stenosis Surgical History H/O mitral valve replacement 2013 [place] [facility] [place] History of "mitral valve repair" per cardio records (Secondary to infarct related mitral insufficiency) History of arthroscopy of left knee History of bilateral carpal tunnel release History of cardiac radiofrequency ablation History of colonoscopy History of esophagogastroduodenoscopy (EGD) History of lumbar spinal fusion x2 History of repair of right rotator cuff History of tooth extraction all teeth removed History of umbilical hernia repair ICD (implantable cardioverter-defibrillator) in place 04/14/15@ [facility] Status post anal fissurectomy Status post cardiac catheterization "06/23/13 Dr. Jerez 80% stenosis large ramus intermedius, 40% PDA, 70% septal branch LAD" x3 or 4 of them per pt Status post coronary artery stent placement "06/23/13 [facility] Dr. 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 Beliefs That Will Affect Care: None Current Living Situation: Spouse current occupational status: retired Feels Safe at Home: Yes Assistive Devices: Cane Allergies Allergies Allergy/AdvReac Type Severity Reaction Status Date / Time ciprofloxacin Allergy Severe ANAPHYLAXIS Verified 11/08/21 17:35 doxycycline Allergy Severe ANAPHYLAXIS Verified 11/08/21 17:35 Sulfa (Sulfonamide Allergy Severe Anaphylaxis Verified 11/08/21 17:35 Antibiotics) Home Meds Home Medications Medication Instructions Recorded Confirmed atorvastatin 40 mg tablet 40 mg PO PM 12/10/18 11/08/21 clopidogrel 75 mg tablet 75 mg PO QAM 12/10/18 11/08/21 fluticasone propionate 50 2 spray intranasal DAILY PRN 12/10/18 11/08/21 mcg/actuation nasal Allergy Symptoms spray,suspension (Flonase Allergy Relief) isosorbide mononitrate 30 mg 60 mg PO QAM 12/10/18 11/08/21 tablet,extended release 24 hr magnesium oxide 400 mg PO BID 12/10/18 11/08/21 metoprolol succinate 50 mg See Rx Instructions .Route .COMPLEX 12/10/18 11/08/21 tablet,extended release 24 hr nitroglycerin 0.4 mg sublingual 0.4 mg sublingual UD PRN Angina 12/10/18 11/08/21 tablet (Nitrostat) spironolactone 25 mg tablet 25 mg PO QAM 12/10/18 11/08/21 warfarin 5 mg tablet 5 mg PO QAM 12/10/18 11/08/21 amitriptyline 10 mg tablet 10 mg PO HS 02/11/21 11/08/21 sacubitril 49 mg-valsartan 51 mg 1 tab PO BID 02/11/21 11/08/21 tablet (Entresto) tramadol 50 mg tablet 100 mg PO Q6H PRN Pain 02/11/21 11/08/21 empagliflozin 10 mg tablet 10 mg PO DAILY 08/26/21 11/08/21 furosemide 20 mg tablet 20 mg PO QAM 08/26/21 11/08/21 pantoprazole 20 mg tablet,delayed 20 mg PO DAILY 08/26/21 11/08/21 release metformin 500 mg tablet,extended 1,000 mg PO QAM 11/08/21 11/08/21 release 24 hr Previous Rx's Medication Instructions Recorded meclizine 12.5 mg tablet 12.5 mg PO TID PRN dizziness #20 08/26/21 tabs ondansetron 4 mg disintegrating 4 mg PO Q8H PRN nausea and 08/26/21 tablet vomiting #30 tabs Results & Data (ED) Vital Signs Vital Signs - 24 hr 11/08/21 14:28 11/08/21 14:26 11/08/21 14:26 Temperature 36.7 C Temperature Source Temporal Artery Scan Pulse Rate 82 79 Pulse Rate from SpO2 Sensor Pulse Rhythm Regular Respiratory Rate 18 16 19 Respiratory Effort / Characteristics Non-Labored Spontaneous Respiratory Depth Normal Respiratory Pattern Regular Blood Pressure 143/78 H Blood Pressure Mean 99 Blood Pressure Position Sitting Pulse Oximetry 95 98 99 Oxygen Delivery Method Room Air Room Air Room Air Oxygen Flow Rate Sepsis Recent Fever Within 48 Hours No Sepsis New/Unexplained Change in Mental Status No Sepsis Action Taken by Nursing No Action Required 11/08/21 15:40 11/08/21 16:00 11/08/21 16:00 Temperature Temperature Source Pulse Rate 76 71 Pulse Rate from SpO2 Sensor 77 71 Pulse Rhythm Respiratory Rate 20 22 Respiratory Effort / Characteristics Respiratory Depth Respiratory Pattern Blood Pressure 135/73 Blood Pressure Mean 93 Blood Pressure Position Pulse Oximetry 96 96 Oxygen Delivery Method Oxygen Flow Rate Sepsis Recent Fever Within 48 Hours Sepsis New/Unexplained Change in Mental Status Sepsis Action Taken by Nursing 11/08/21 15:08 Temperature Temperature Source Pulse Rate 65 Pulse Rate from SpO2 Sensor Pulse Rhythm Regular Respiratory Rate 18 Respiratory Effort / Characteristics Respiratory Depth Respiratory Pattern Blood Pressure Blood Pressure Mean Blood Pressure Position Pulse Oximetry 97 Oxygen Delivery Method Room Air Oxygen Flow Rate 0 Sepsis Recent Fever Within 48 Hours Sepsis New/Unexplained Change in Mental Status Sepsis Action Taken by Long-Term Medications Current Medication List: was personally reviewed by me Laboratory Data Attestation: I reviewed the patient's lab results. Result diagrams: 11/08/21 15:26 11/08/21 15:26 Lab Results 11/08/21 11/08/21 11/08/21 Range/Units 15:26 15:26 15:26 WBC 5.90 (4.8-10.8) K/ul RBC 4.46 L (4.63-6.08) M/uL Hgb 13.5 L (14.0-18.0) g/dl Hct 40.0 L (40.1-51.0) % MCV 89.7 (80.0-100.0) fL MCH 30.3 (25.0-34.0) pg MCHC 33.8 (32.0-36.0) g/dL RDW Std Deviation 49.9 H (36.4-46.3) fL RDW Coeff of Chaz 15.2 H (11.5-14.5) % Plt Count 182 (130-400) K/uL MPV 11.7 (9.4-12.4) fL Immature Gran % (Auto) 0.3 % Neut % (Auto) 80.9 % Lymph % (Auto) 9.8 % [place] % (Auto) 7.5 % Eos % (Auto) 1.2 % Baso % (Auto) 0.3 % Neut # (Auto) 4.77 (1.4-6.5) K/uL Lymph # (Auto) 0.58 L (1.2-3.4) K/uL [place] # (Auto) 0.44 (0.24-0.82) K/uL Eos # (Auto) 0.07 (0-0.50) K/uL Baso # (Auto) 0.02 (0-0.2) K/uL Immature Gran # (Auto) 0.02 (0.00-0.02) K/uL PT 21.0 H (9.0-12.0) Seconds INR 2.0 H (0.9-1.1) APTT 40.4 H (21.0-31.0) Seconds PTT Ratio 1.5 Sodium (136-145) mmol/L Potassium (3.5-5.1) mmol/L Chloride (98-107) mmol/L Carbon Dioxide (21-32) mmol/L Anion Gap (3-11) BUN (6-23) mg/dl Creatinine (0.6-1.4) mg/dl Est Cr Clr Drug Dosing ml/min Est GFR ( Amer) ml/min Est GFR (Non-Af Amer) ml/min BUN/Creatinine Ratio (10-20) Glucose (70-99(Fasting)) mg/dl Calcium (8.5-10.1) mg/dl Magnesium (1.7-2.4) mg/dl Total Bilirubin (0.2-1.0) mg/dl AST (13-39) U/L ALT (7-52) U/L Alkaline Phosphatase (34-104) U/L Troponin I High Sens (0-20) pg/ml Total Protein (6.0-8.3) gm/dl Albumin (3.4-5.0) gm/dl Globulin (2.5-4.0) gm/dl Albumin/Globulin Ratio (0.9-2) Blood Type A Positive Antibody Screen NEGATIVE 11/08/21 Range/Units 15:26 WBC (4.8-10.8) K/ul RBC (4.63-6.08) M/uL Hgb (14.0-18.0) g/dl Hct (40.1-51.0) % MCV (80.0-100.0) fL MCH (25.0-34.0) pg MCHC (32.0-36.0) g/dL RDW Std Deviation (36.4-46.3) fL RDW Coeff of Chaz (11.5-14.5) % Plt Count (130-400) K/uL MPV (9.4-12.4) fL Immature Gran % (Auto) % Neut % (Auto) % Lymph % (Auto) % [place] % (Auto) % Eos % (Auto) % Baso % (Auto) % Neut # (Auto) (1.4-6.5) K/uL Lymph # (Auto) (1.2-3.4) K/uL [place] # (Auto) (0.24-0.82) K/uL Eos # (Auto) (0-0.50) K/uL Baso # (Auto) (0-0.2) K/uL Immature Gran # (Auto) (0.00-0.02) K/uL PT (9.0-12.0) Seconds INR (0.9-1.1) APTT (21.0-31.0) Seconds PTT Ratio Sodium 138 (136-145) mmol/L Potassium 3.9 (3.5-5.1) mmol/L Chloride 105 (98-107) mmol/L Carbon Dioxide 25 (21-32) mmol/L Anion Gap 8 (3-11) BUN 29 H (6-23) mg/dl Creatinine 1.52 H (0.6-1.4) mg/dl Est Cr Clr Drug Dosing 45.5 ml/min Est GFR ( Amer) 49.8 ml/min Est GFR (Non-Af Amer) 43.0 ml/min BUN/Creatinine Ratio 19.1 (10-20) Glucose 158 H (70-99(Fasting)) mg/dl Calcium 9.0 (8.5-10.1) mg/dl Magnesium 1.8 (1.7-2.4) mg/dl Total Bilirubin 0.5 (0.2-1.0) mg/dl AST 20 (13-39) U/L ALT 14 (7-52) U/L Alkaline Phosphatase 57 (34-104) U/L Troponin I High Sens 6.7 (0-20) pg/ml Total Protein 7.0 (6.0-8.3) gm/dl Albumin 4.2 (3.4-5.0) gm/dl Globulin 2.8 (2.5-4.0) gm/dl Albumin/Globulin Ratio 1.5 (0.9-2) Blood Type Antibody Screen Administered Medications Amitriptyline HCl (Amitriptyline Hcl 10 Mg Tab) 10 mg PO HS ZANDER Stop: 12/08/21 20:59 Last Admin: 11/08/21 21:19 Dose: 10 mg Documented By: AN Atorvastatin Calcium (Atorvastatin 40 Mg Tab) 40 mg PO PM ZANDER Stop: 12/08/21 20:59 Last Admin: 11/08/21 21:19 Dose: 40 mg Documented By: AN Insulin Aspart (Insulin Aspart Per Unit) 0 units SC ACHS ZANDER Stop: 12/08/21 20:59 Last Admin: 11/08/21 21:56 Dose: Not Given Documented By: AN Co-signed By: CRISTHIAN Insulin Glargine (Lantus Per Unit Charge) 0 - 10 units SQ BID ZANDER Stop: 12/08/21 20:59 Last Admin: 11/08/21 21:56 Dose: 5 units Documented By: AN Co-signed By: CC Magnesium Oxide (Magnesium Oxide 400 Mg Tab) 400 mg PO BID ZANDER Stop: 12/08/21 20:59 Last Admin: 11/08/21 21:19 Dose: 400 mg Documented By: AN Sacubitril/Valsartan (Valsartan/Sacubitril 51/49 Mg Tab) 1 tab PO BID ZANDER Stop: 12/08/21 20:59 Last Admin: 11/08/21 21:19 Dose: 1 tab Documented By: AN Discontinued Medications Sodium Chloride (Nss) 500 mls @ 999 mls/hr IV .Q31M ZANDER Stop: 11/08/21 15:45 Last Infusion: 11/08/21 16:03 Dose: 0 mls/hr Documented By: Admin: 11/08/21 15:32 Dose: 999 mls/hr Documented By: ROSETTE Phytonadione 5 mg/ Dextrose 50.5 mls @ 101 mls/hr IV ONE ONE Stop: 11/08/21 18:11 Last Infusion: 11/08/21 18:55 Dose: 0 mls/hr Documented By: Admin: 11/08/21 18:18 Dose: 101 mls/hr Documented By: ROSETTE Imaging Data Radiologist's Impression: Chest X-Ray 11/08/21 15:08 XR chest 1V portable HISTORY: 81 years-old Male gi bleed follow-up study in a patient with acute GI bleed COMPARISON: Chest radiograph 08/25/2021 TECHNIQUE: AP view of the chest FINDINGS: The cardiac silhouette is enlarged. Left subclavian pacer/AICD. Pulmonary vascular congestion with interstitial coarsening. No pneumothorax or large pleural effusion. Degenerative changes of the shoulders and spine. IMPRESSION: Cardiomegaly with pulmonary vascular congestion and interstitial coarsening suggestive of pulmonary edema. ACT 112: Negative or not required by law. The above report was generated using voice recognition software. It may contain grammatical, syntax or spelling errors. Electronically signed by: Varun Rose M.D. 11/08/2021 4:00 PM Discharge Plan Visit Data Chief Complaint: Rectal Bleed Stated Complaint: BLEEDING, WOUND ED Provider: Filiberto Flores Discharge Problem: Rectal bleeding, Coagulopathy Patient Disposition: Admitted As Inpatient Condition: Fair Discharge Instructions Interventions: ED Discharge Assessment Last Done: 11/08/21 21:15
--- NOTE | 2021-11-08 16:01 | XRay Report ---
XR chest 1V portable HISTORY: 81 years-old Male gi bleed follow-up study in a patient with acute GI bleed COMPARISON: Chest radiograph 08/25/2021 TECHNIQUE: AP view of the chest FINDINGS: The cardiac silhouette is enlarged. Left subclavian pacer/AICD. Pulmonary vascular congestion with in terstitial coarsening. No pneumothorax or large pleural effusion. Degenerative changes of the shoulde rs and spine. IMPRESSION: Cardiomegaly with pulmonary vascular congestion and interstitial coarsening suggestive of pulmonary edema. ACT 112: Negative or not required by law. The above report was generated using voice recognition software. It may contain grammatical, syntax o r spelling errors. Electronically signed by: Varun Rose M.D. 11/08/2021 4:00 PM
[2021-11-08 16:20] LABS: Basophils # (auto) 0.02 K/uL (0-0.2); Basophils % (auto) 0.3 %; Eosinophils # (auto) 0.07 K/uL (0-0.50); Eosinophils % (auto) 1.2 %; Hemoglobin 13.5 g/dl (14.0-18.0); Immature Granulocytes # (auto) 0.02 K/uL (0.00-0.02); Immature Granulocytes % (auto) 0.3 %; Lymphocytes # (auto) 0.58 K/uL (1.2-3.4); Lymphocytes % (auto) 9.8 %; Mean Corpuscular Hemoglobin 30.3 pg (25.0-34.0); Mean Corpuscular Hgb Conc 33.8 g/dL (32.0-36.0); Mean Corpuscular Volume 89.7 fL (80.0-100.0); Mean Platelet Volume 11.7 fL (9.4-12.4); Monocytes # (auto) 0.44 K/uL (0.24-0.82); Monocytes % (auto) 7.5 %; Neutrophils # (auto) 4.77 K/uL (1.4-6.5); Neutrophils % (auto) 80.9 %; Platelet Count 182 K/uL (130-400); RDW Coefficient of Variation 15.2 % (11.5-14.5); RDW Standard Deviation 49.9 fL (36.4-46.3); Red Blood Count 4.46 M/uL (4.63-6.08)
[2021-11-08 16:39] LABS: Partial Thromboplastin Ratio 1.5; Partial Thromboplastin Time 40.4 Seconds (21.0-31.0)
[2021-11-08 16:46] LABS: Albumin Globulin Ratio 1.5 (0.9-2); Albumin Level 4.2 gm/dl (3.4-5.0); BUN Creatinine Ratio 19.1 (10-20); Bilirubin,Total 0.5 mg/dl (0.2-1.0); Creatinine Clr Calc Pharmacy 45.5 ml/min; Est GFR (African American) 49.8 ml/min; Globulin 2.8 gm/dl (2.5-4.0); Magnesium 1.8 mg/dl (1.7-2.4); Potassium 3.9 mmol/L (3.5-5.1)
[2021-11-08 16:48] LABS: Troponin I High Sensitivity 6.7 pg/ml (0-20)
[2021-11-08] MEDS ORDERED: PHYTONADIONE 5 MG in DEXTROSE 5% 50 ML IV ONE (17:42)
[2021-11-08] MEDS ORDERED: NITROGLYCERIN SL 0.4 MG/TAB TAB SL PRN (18:40)
[2021-11-08] MEDS ORDERED: traMADol HCL 50 MG TABLET PO PRN (18:40)
[2021-11-08] MEDS ORDERED: ONDANSETRON 4 MG OD TAB PO PRN (18:40)
--- NOTE | 2021-11-08 18:50 | History & Physical Report ---
Date of Service November 08, 2021 Assessment & Plan (1) Rectal bleed: Plan: Possible related to anal fissure History of anal fistula with fistulotomy done on 2016 Last Colonoscopy in 2017 - Anal stricture found on digital rectal exam. The ent yinka examined colon is normal. INR on admission 2 and hgb above 13 Receive IV vitamin K in the ER Currently bleeding stopped Will monitor H/H Will hold coumadin today Consider to resume plavix once bleeding resolved Will consult GI Consider surgery consult if bleeding reoccur for eval Will make NPO after midnight in case GI plan for any procedure Continue monitor closely Hx Atrial flutter Rate control Continue Imdur Coumadin on hold Valvular heart disease s/p mitral valve repair/mitral valve ring04/2014 Last echo on 06/28 showed prior mitral valve repair stable Chronic CHF Last ECHO on 06/28 showed left ventricle is borderline dilated. Moderate diffuse left ventricular hypokinesis. LV with ejection function 30 to 34%. CXR showed cardiomegaly with pulmonary vascular congestion and interstitial coarsening suggestive of pulmonary edema. Pt was given IVF in the ER Will continue lasix and spironolactone Denies any SOB Monitor closely for sign of CHF CAD s/p BMS Please resume Plavix once bleeding resolves CKD stage 4 Creatinine 1.5 on admission, at baseline Continue monitor BMP Hyperlipidemia Continue Atorvastatin Uncontrolled Type 2 Diabetes Check Hba1c in am Continue to hold PO diabetes Starting on insulin sliding scale Continue monitor BP Ischemic cardiomyopathy Status post single-chamber prophylactic defibrillator, 04/14/2015.[employer]tr[employer] Continue Entresto, spironolactone, Imdur stable DVT px INR 2 on admission. Coumadin hold today due to rectal bleeding CODE Status FULL code History of Present Illness Chief Complaint: Rectal bleeding Primary Care Provider: Umer Nur MD 81-year-old female with past medical history of type 2 diabetes, hypertension, dyslipidemia, COPD, systolic heart failure, acute thrombotic occlusion of the ramus with extension to the left anterior descending and left main in the setting of postoperative lumbar decompressive surgery September of 2013, CAD, mitral valve repair, ischemic cardiomyopathy, Status post single-chamber prophylactic defibrillator, 04/14/2015.[employer]tr[employer], CKD stage III, perianal fistula with fistulotomy and incision of anal sphincter was sent from the urgent care to the ER for rectal bleeding. History obtained from patient and at bedside ( helped due to patient decreased hearing function). Pt said for about 4 weeks he has been having a sore around his anal area. He said he went to the urgent care today to get it check. He said that at the urgent care during examination while they were applied pressure around his anal area, he developed a rectal bleed; then he was referred to the ER to get it eval. When he arrived in the ER, the ER provider said there was blood in his rectum and every times they wiped the blood, the anal area quickly covered with blood. Pt said about 5 yrs ago he had a fistulotomy done for the perianal fistula. He said that during that time he used to have recurrent rectal bleed. He said that he had a normal bowel movement last night. He is INR to 2. In the ER he was given Vit K since he is on coumadin to stop the bleeding. Denies any chest pain, palpitation, dizziness, SOB and fever. Allergies Allergy/AdvReac Type Severity Reaction Status Date / Time ciprofloxacin Allergy Severe ANAPHYLAXIS Verified 11/08/21 17:35 doxycycline Allergy Severe ANAPHYLAXIS Verified 11/08/21 17:35 Sulfa (Sulfonamide Allergy Severe Anaphylaxis Verified 11/08/21 17:35 Antibiotics) Home Medications Medication Instructions Recorded Confirmed Type atorvastatin 40 mg tablet 40 mg PO PM 12/10/18 11/08/21 History clopidogrel 75 mg tablet 75 mg PO QAM 12/10/18 11/08/21 History fluticasone propionate 50 2 spray intranasal DAILY PRN 12/10/18 11/08/21 History mcg/actuation nasal Allergy Symptoms spray,suspension (Flonase Allergy Relief) isosorbide mononitrate 30 mg 60 mg PO QAM 12/10/18 11/08/21 History tablet,extended release 24 hr magnesium oxide 400 mg PO BID 12/10/18 11/08/21 History metoprolol succinate 50 mg See Rx Instructions .Route .COMPLEX 12/10/18 11/08/21 History tablet,extended release 24 hr nitroglycerin 0.4 mg sublingual 0.4 mg sublingual UD PRN Angina 12/10/18 11/08/21 History tablet (Nitrostat) spironolactone 25 mg tablet 25 mg PO QAM 12/10/18 11/08/21 History warfarin 5 mg tablet 5 mg PO QAM 12/10/18 11/08/21 History amitriptyline 10 mg tablet 10 mg PO HS 02/11/21 11/08/21 History sacubitril 49 mg-valsartan 51 mg 1 tab PO BID 02/11/21 11/08/21 History tablet (Entresto) tramadol 50 mg tablet 100 mg PO Q6H PRN Pain 02/11/21 11/08/21 History empagliflozin 10 mg tablet 10 mg PO DAILY 08/26/21 11/08/21 History furosemide 20 mg tablet 20 mg PO QAM 08/26/21 11/08/21 History meclizine 12.5 mg tablet 12.5 mg PO TID PRN dizziness #20 08/26/21 11/08/21 Rx tabs ondansetron 4 mg disintegrating 4 mg PO Q8H PRN nausea and 08/26/21 11/08/21 Rx tablet vomiting #30 tabs pantoprazole 20 mg tablet,delayed 20 mg PO DAILY 08/26/21 11/08/21 History release metformin 500 mg tablet,extended 1,000 mg PO QAM 11/08/21 11/08/21 History release 24 hr Past Med/Surg History Medical History Anxiety Atrial flutter Transient/post operative per cardio records in the past Recently discovered again incidentally during ECHO CAD (coronary artery disease) (06/23/13) - BMS to ramus intermedius June 2013 - Acute thrombotic occlusion of the ramus with extension to the left anterior descending and left main in the setting of postoperative lumbar decompressive surgery September of 2013, course complicated by cardiogenic shock, acute myocardial infarction, treated with aspiration thrombectomy, and coronary angioplasty. 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 Jerez On home oxygen therapy 2L N/C when sleeping SOB (shortness of breath) on exertion Spinal stenosis Surgical History H/O mitral valve replacement 2013 @ [facility] History of "mitral valve repair" per cardio records (Secondary to infarct related mitral insufficiency) History of arthroscopy of left knee History of bilateral carpal tunnel release History of cardiac radiofrequency ablation History of colonoscopy History of esophagogastroduodenoscopy (EGD) History of lumbar spinal fusion x2 History of repair of right rotator cuff History of tooth extraction all teeth removed History of umbilical hernia repair ICD (implantable cardioverter-defibrillator) in place 04/14/15@ [facility]--[employer] Status post anal fissurectomy Status post cardiac catheterization "06/23/13 Dr. Jerez 80% stenosis large ramus intermedius, 40% PDA, 70% septal branch LAD" x3 or 4 of them per pt Status post coronary artery stent placement "06/23/13 [facility] Dr. 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 Beliefs That Will Affect Care: None Current Living Situation: Spouse current occupational status: retired Feels Safe at Home: Yes Assistive Devices: Cane Review of Systems Review of Systems: All systems reviewed & are unremarkable except as noted in HPI & below Physical Exam Physical Exam: General- No acute distress Head- atraumatic Eyes- PERRL, EOMI, ENT- oropharynx clear, +decrease hearing function Neck- supple, no JVD Lungs- clear to auscultation Heart- regular rhythm; + murmur Abdomen- normal bowel sounds, soft, nontender Rectum: No rectal prolapse, tenderness when palpate around the right side of the anus area (5'oclock window), small blood was seen on the gauze that was placed, bleeding stopped, no digital exam done to avoid rebleeding from the pressure Extremities- no calf tenderness Neuro- alert, oriented x 3; PERRL, EOMI; no facial palsy; no dysarthria Skin- warm & dry Results & Data Results & Data ([facility]) Vital Signs (Past 12 Hours) Vital Signs Temp Pulse Resp BP Pulse Ox O2 Del Method O2 Flow Rate 11/08/21 15:08 65 18 97 Room Air 0 11/08/21 16:00 71 22 96 11/08/21 16:00 135/73 11/08/21 15:40 76 20 96 11/08/21 14:26 79 19 99 Room Air 11/08/21 14:26 16 98 Room Air 11/08/21 14:28 36.7 C 82 18 143/78 H 95 Room Air Diagnostic Findings XR chest 1V portable HISTORY: 81 years-old Male gi bleed follow-up study in a patient with acute GI bleed COMPARISON: Chest radiograph 08/25/2021 TECHNIQUE: AP view of the chest FINDINGS: The cardiac silhouette is enlarged. Left subclavian pacer/AICD. Pulmonary vascular congestion with interstitial coarsening. No pneumothorax or large pleural effusion. Degenerative changes of the shoulders and spine. IMPRESSION: Cardiomegaly with pulmonary vascular congestion and interstitial coarsening suggestive of pulmonary edema. ACT 112: Negative or not required by law. The above report was generated using voice recognition software. It may contain grammatical, syntax or spelling errors. Electronically signed by: Varun Rose M.D. 11/08/2021 4:00 PM Dictated:11/08/21 1559 Transcribed: 11/08/21 1559 Code Status & VTE Plan VTE Prophylaxis Plan VTE Prophylaxis will be ordered: No
[2021-11-08] MEDS ORDERED: GLUCOSE 10 TAB/TUBE PO PRN (20:51)
[2021-11-08] MEDS ORDERED: DEXTROSE 50% 50 ML SYRINGE IV PRN (20:51)
[2021-11-08] MEDS ORDERED: GLUCAGON FOR INJ 1 MG VIAL SQ PRN (20:51)
[2021-11-08] MEDS ORDERED: ONDANSETRON INJ 2 MG/ML 2 ML VIAL IV PRN (20:51)
[2021-11-08] MEDS ORDERED: ACETAMINOPHEN 325 MG TAB PO PRN (20:51)
[2021-11-08] MEDS ORDERED: CARBOHYDRATES FOR HYPOGLYCEMIA PO PRN (20:51)
[2021-11-08] MEDS ORDERED: GLUCOSE 40% GEL 15 GM TUBE PO PRN (20:51)
[2021-11-08] MEDS ORDERED: ALUMINUM/MAGNESIUM SUSP 30 ML UDC PO PRN (20:51)
[2021-11-08] MEDS: ATORVASTATIN 40 MG TAB PO SCH (21:19)
[2021-11-08] MEDS: VALSARTAN/SACUBITRIL 51/49 MG TAB PO SCH (21:19)
[2021-11-08] MEDS: MAGNESIUM OXIDE 400 MG TAB PO SCH (21:19)
[2021-11-08] MEDS: AMITRIPTYLINE HCL 10 MG TAB PO SCH (21:19)
[2021-11-08] MEDS: INSULIN ASPART PER UNIT SC SCH (21:56)
[2021-11-08] MEDS: LANTUS PER UNIT CHARGE SQ SCH (21:56)
[2021-11-09 06:55] LABS: Basophils # (auto) 0.02 K/uL (0-0.2); Basophils % (auto) 0.4 %; Eosinophils # (auto) 0.12 K/uL (0-0.50); Eosinophils % (auto) 2.5 %; Hematocrit (blood only) 41.4 % (40.1-51.0); Hemoglobin 13.7 g/dl (14.0-18.0); Lymphocytes # (auto) 0.76 K/uL (1.2-3.4); Lymphocytes % (auto) 15.7 %; Mean Corpuscular Hemoglobin 29.7 pg (25.0-34.0); Mean Corpuscular Hgb Conc 33.1 g/dL (32.0-36.0); Mean Corpuscular Volume 89.8 fL (80.0-100.0); Mean Platelet Volume 11.7 fL (9.4-12.4); Monocytes # (auto) 0.43 K/uL (0.24-0.82); Monocytes % (auto) 8.9 %; Neutrophils % (auto) 72.5 %; Platelet Count 170 K/uL (130-400); RDW Standard Deviation 49.5 fL (36.4-46.3); Red Blood Count 4.61 M/uL (4.63-6.08); White Blood Count 4.83 K/ul (4.8-10.8)
[2021-11-09 07:03] LABS: INR 1.3 (0.9-1.1); Prothrombin Time 13.8 Seconds (9.0-12.0)
[2021-11-09 07:23] LABS: Estimated Average Glucose 177 mg/dl; Hemoglobin A1C 7.8 % (4.5-5.6)
[2021-11-09 07:49] LABS: Albumin Globulin Ratio 1.5 (0.9-2); Albumin Level 3.8 gm/dl (3.4-5.0); BUN Creatinine Ratio 18.1 (10-20); Calcium 8.8 mg/dl (8.5-10.1); Creatinine Clr Calc Pharmacy 54.5 ml/min; Est GFR (African American) 61.9 ml/min; Est GFR (Non-African American) 53.4 ml/min; Globulin 2.5 gm/dl (2.5-4.0); Magnesium 1.8 mg/dl (1.7-2.4); Potassium 3.9 mmol/L (3.5-5.1); Total Protein 6.3 gm/dl (6.0-8.3)
[2021-11-09] MEDS: PANTOprazole 40 MG TAB PO SCH (09:37)
[2021-11-09] MEDS: FUROSEMIDE 20 MG TAB PO SCH (09:37)
[2021-11-09] MEDS: ISOSORBIDE MONO EXTENDED REL 60 MG TABCR PO SCH (09:37)
[2021-11-09] MEDS: MAGNESIUM OXIDE 400 MG TAB PO SCH ×2 (09:38→21:31)
[2021-11-09] MEDS: SPIRONOLACTONE 25 MG TAB PO SCH (09:38)
[2021-11-09] MEDS: VALSARTAN/SACUBITRIL 51/49 MG TAB PO SCH ×2 (09:38→21:31)
[2021-11-09] MEDS: METOPROLOL SUCC 25MG EXT REL TAB PO SCH (09:38)
[2021-11-09] MEDS: INSULIN ASPART PER UNIT SC SCH ×4 (09:39→22:16)
[2021-11-09] MEDS: LANTUS PER UNIT CHARGE SQ SCH ×2 (09:39→21:41)
--- NOTE | 2021-11-09 10:12 | Gastrointestinal Consultation ---
Date of Consultation November 09, 2021 Assessment & Plan (1) Rectal bleeding: Plan Cardiology consult for opinion regarding safety of sedation. Will go forward with flex sig or colonoscopy after review of cardiology opinion. Colonoscopy would be a more complete eval but flex sig can be completed w/o sedation. Will prep for colonoscopy tomorrow. Will follow Hb and stool outputs in the interim. Please hold warfarin. Clear liquid diet today. NPO after midnight. Supervising Physician Co-Signing Physician Notes Late entry: Patient was seen and examined on 11/09 with MITALI Hutchinson whose note reflects our findings and plan. History of Present Illness Reason for Consultation: Rectal bleeding Requesting Physician: Denilson Attending Physician: Mary Anne Carranza MD History of Present Illness Mr Holcomb is a 81 yr old male pt of Dr. Romero w a hx of DM2, HTN, Hyperlipidemia, COPD, CHF, CAD S/P stenting, Ischemic cardiomyopathy, A fib/flutter on warfarin, w/ implanted defibrillator,DM2, COPD, CKD stage III, perianal fistula S/P fistulotomy. He presented to urgent care yesterday and was sent from there to our ED. In the ED, Hb was 13.5->13.7 today, INR was 2.0, reversed Vit K to 1.3 today, BUN 23. In the ED, on exam there was blood pooling in the rectal vault. On my exam in the ED, the pt does not have any current bleeding. There is evidence of prior procedure for an anal fistula. There are non bleeding external hemorrhoids positioned posteriorly and on digital exam the anus is very tight and painful consistent with a stricture, minimal red blood on return. He denies any abdominal pain, nausea/vomiting, CP or weakness. He is ambulating independently to the bathroom. Most recent Colonoscopy was completed in [address] Pandey (colorectal surgery) radha an anal stricture. Exam was otherwise normal through the ileocecal valve. No polyps or mucosal abnormalities were noted. The pt tells that he is high risk for anesthesia secondary to heart issues and asks that we speak with cardiology. Allergies Allergy/AdvReac Type Severity Reaction Status Date / Time ciprofloxacin Allergy Severe ANAPHYLAXIS Verified 11/10/21 10:28 doxycycline Allergy Severe ANAPHYLAXIS Verified 11/10/21 10:28 Sulfa (Sulfonamide Allergy Severe Anaphylaxis Verified 11/10/21 10:28 Antibiotics) Home Medications Medication Instructions Recorded Confirmed Type atorvastatin 40 mg tablet 40 mg PO PM 12/10/18 11/08/21 History clopidogrel 75 mg tablet 75 mg PO QAM 12/10/18 11/08/21 History fluticasone propionate 50 2 spray intranasal DAILY PRN 12/10/18 11/08/21 History mcg/actuation nasal Allergy Symptoms spray,suspension (Flonase Allergy Relief) isosorbide mononitrate 30 mg 60 mg PO QAM 12/10/18 11/08/21 History tablet,extended release 24 hr magnesium oxide 400 mg PO BID 12/10/18 11/08/21 History metoprolol succinate 50 mg See Rx Instructions .Route .COMPLEX 12/10/18 11/08/21 History tablet,extended release 24 hr nitroglycerin 0.4 mg sublingual 0.4 mg sublingual UD PRN Angina 12/10/18 11/08/21 History tablet (Nitrostat) spironolactone 25 mg tablet 25 mg PO QAM 12/10/18 11/08/21 History warfarin 5 mg tablet 5 mg PO QAM 12/10/18 11/08/21 History amitriptyline 10 mg tablet 10 mg PO HS 02/11/21 11/08/21 History sacubitril 49 mg-valsartan 51 mg 1 tab PO BID 02/11/21 11/08/21 History tablet (Entresto) tramadol 50 mg tablet 100 mg PO Q6H PRN Pain 02/11/21 11/08/21 History empagliflozin 10 mg tablet 10 mg PO DAILY 08/26/21 11/08/21 History furosemide 20 mg tablet 20 mg PO QAM 08/26/21 11/08/21 History meclizine 12.5 mg tablet 12.5 mg PO TID PRN dizziness #20 08/26/21 11/08/21 Rx tabs ondansetron 4 mg disintegrating 4 mg PO Q8H PRN nausea and 08/26/21 11/08/21 Rx tablet vomiting #30 tabs pantoprazole 20 mg tablet,delayed 20 mg PO DAILY 08/26/21 11/08/21 History release metformin 500 mg tablet,extended 1,000 mg PO QAM 11/08/21 11/08/21 History release 24 hr Patient History Medical History Anxiety Atrial flutter Transient/post operative per cardio records in the past Recently discovered again incidentally during ECHO CAD (coronary artery disease) (06/23/13) - BMS to ramus intermedius June 2013 - Acute thrombotic occlusion of the ramus with extension to the left anterior descending and left main in the setting of postoperative lumbar decompressive surgery September of 2013, course complicated by cardiogenic shock, acute myocardial infarction, treated with aspiration thrombectomy, and coronary angioplasty. 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 Jerez On home oxygen therapy 2L N/C when sleeping SOB (shortness of breath) on exertion Spinal stenosis Surgical History [place] [facility] [place] of "mitral valve repair" per cardio records (Secondary to infarct related mitral insufficiency) History of arthroscopy of left knee History of bilateral carpal tunnel release History of cardiac radiofrequency ablation History of colonoscopy History of esophagogastroduodenoscopy (EGD) History of lumbar spinal fusion x2 History of repair of right rotator cuff History of tooth extraction all teeth removed History of umbilical hernia repair ICD (implantable cardioverter-defibrillator) in place 04/14/15@ [facility]--[employer] Status post anal fissurectomy Status post cardiac catheterization "06/23/13 Dr. Jerez 80% stenosis large ramus intermedius, 40% PDA, 70% septal branch LAD" x3 or 4 of them per pt Status post coronary artery stent placement "06/23/13 [facility] Dr. Boggs bare metal stent proximal ramus intermedius" Status post trigger finger release Family History Mother Family history of diabetes mellitus Sister Family history of diabetes mellitus Brother Family history of diabetes mellitus Family history of stomach cancer Other No family history of adverse response to anesthesia Social History Smoking Status: Never smoker Second Hand Exposure: No; Do You Dip or Chew Tobacco: No; Tobacco Cessation Education Requested by Patient: No Hx Alcohol Use: Yes Alcohol type: beer and wine Hx Substance Use: No Preferred Language: Kiswahili Communication Ability: Effective Rn Peritoneal Dialysis Required: No Beliefs That Will Affect Care: None Current Living Situation: Spouse current occupational status: retired Other Information That Helps Us Care for You: No Feels Safe at Home: Yes Safety Concerns: Feels Safe At This Time Assistive Devices: Cane Review of Systems Review of Systems: ROS: Gen: Denies weakness, fevers, weight loss Eyes: No eye redness, or pain, no recent vision changes Resp: No SOB, no cough Cardio: No palpitations/irregular beats, no chest pain GI: Rectal bleeding, otherwise (-) : Denies pain on urination Skin: No jaundice, itching or new rashes Physical Exam Constitutional: WD/WN, vitals as above Eyes: PERRL, conjunctivae normal, anicteric sclerae Neck: trachea midline, no thyromegaly Respiratory: normal respiratory effort, lungs clear to auscultation Cardiovascular: RRR, no murmur, no edema Gastrointestinal (Abdomen): normal bowel sounds, soft, nontender, no hepatosplenomegaly Skin: no rashes, warm and dry Neurologic: PERRL, EOMI, accommodation nl, no face palsy, no dysarthria Psychiatric: A+Ox3, euthymic affect Results & Data ([facility]) Vital Signs (Past 12 Hours) Vital Signs Pulse Resp BP Pulse Ox Pulse Ox O2 Del Method O2 Del Method 11/09/21 09:42 75 16 120/72 95 Room Air 11/08/21 23:17 73 20 104/57 L 95 Room Air 11/08/21 23:17 95 Room Air Laboratory Results WBC 4.8, Hb 13, Hct 41, Plts 179, INR 13, Na 139, K 3.9, Cl 106, CO2 27, BUN 23, Cr 1.27, glucose 110. LFTs normal. Diagnostic Findings CXR 11/08/21: Cardiomegaly with pulmonary vascular congestion and interstitial coarsening suggestive of pulmonary edema.
--- NOTE | 2021-11-09 10:16 | Electrocardiogram Report ---
Test Reason : Blood Pressure : / mmHG Vent. Rate : 070 BPM Atrial Rate : 070 BPM P-R Int : 222 ms QRS Dur : 106 ms QT Int : 418 ms P-R-T Axes : 066 -13 074 degrees QTc Int : 451 ms Sinus rhythm with 1st degree A-V block Poor R wave progression, consider anterior VA vs. lead placement vs. LVH Abnormal ECG When compared with ECG of 25-AUG-2021 22:23, Nonspecific T wave abnormality, improved in Lateral leads Confirmed by Andrea Partida ([id number]) on 11/09/2021 10:15:29 AM Referred By: REFERRED SELF Confirmed By:Juan M Partida
[2021-11-09] MEDS ORDERED: bisacodyL 5 MG TABEC PO ONE (12:21)
[2021-11-09] MEDS ORDERED: LAVAGE SOLUTION 4000ML PO ONE (13:00)
--- NOTE | 2021-11-09 14:36 | Cardiology Consultation ---
Date of Consultation November 09, 2021 Assessment & Plan (1) Rectal bleeding: (2) Coagulopathy: (3) Encounter for pre-operative examination: (4) CHF (congestive heart failure): (5) Diabetes mellitus, type II: (6) Chronic systolic (congestive) heart failure: (7) H/O mitral valve repair: (8) CAD (coronary artery disease): (9) ICD (implantable cardioverter-defibrillator) in place: Plan Utilizing the geriatric risk assessment tool this patient has a risk of 4% for a cardiovascular event during the colonoscopy. No additional testing will change this risk assessment. He currently has no ongoing cardiac problems and is clinically stable. He is optimally medically managed. The warfarin can be reversed in anticipation of any procedures. The remainder of his medication should be continued. We will follow along with you during his hospital stay. History of Present Illness Attending Physician: Mary Anne Carranza MD History of Present Illness This is a 81-year-old male patient with a complex past cardiac history as outlined below. He also has a history of perirectal fistula that was treated in 2017. That was the date of his last colonoscopy. He presented to the emergency department with hematochezia. The GI physicians would ultimately prefer performing a complete colonoscopy rather than a sigmoid study without sedation. Patient has no current cardiac symptoms. He denies any recent chest pain. He does have shortness of breath with activity which is baseline. He denies orthopnea. He has had no lower extremity edema. No heart palpitations or tachycardia. Patient is on warfarin with a history of atrial arrhythmias. Hemoglobin on admission was 13.5. Past medical history: 1. Atherosclerotic coronary disease, status post bare metal stent to the ramus intermedius June 2013. 2. Acute thrombotic occlusion of the ramus with extension to the left anterior descending and left main in the setting of postoperative lumbar decompressive surgery September of 2013, course complicated by cardiogenic shock, acute myocardial infarction, treated with aspiration thrombectomy, and coronary angioplasty. 3. Infarct-related mitral insufficiency status post minimally invasivemitral valve repair April 2014 with stable coronary anatomy. 4. Ischemic cardiomyopathy, ejection fraction 20-25% May 30, 2018 and compensated class 3 systolic congestive heart failure 5. Transient postoperative atrial flutter without recurrence. 6. Status post single-chamber prophylactic defibrillator, 04/14/[email or web address], model - Evera S VR [id number] 7. AV bridgett reentry tachycardia. 8: Status post AV bridgett re-entry tachycardia ablation on 01/11/2016 with successful result. 9. Chronic ventricular ectopy 10. Chronic renal insufficiency stage III 11. Atrial flutter, paroxysmal status post synchronized electrical cardioversion February 2021 Allergies Allergy/AdvReac Type Severity Reaction Status Date / Time ciprofloxacin Allergy Severe ANAPHYLAXIS Verified 11/10/21 10:28 doxycycline Allergy Severe ANAPHYLAXIS Verified 11/10/21 10:28 Sulfa (Sulfonamide Allergy Severe Anaphylaxis Verified 11/10/21 10:28 Antibiotics) Home Medications Medication Instructions Recorded Confirmed Type atorvastatin 40 mg tablet 40 mg PO PM 12/10/18 11/08/21 History clopidogrel 75 mg tablet 75 mg PO QAM 12/10/18 11/08/21 History fluticasone propionate 50 2 spray intranasal DAILY PRN 12/10/18 11/08/21 History mcg/actuation nasal Allergy Symptoms spray,suspension (Flonase Allergy Relief) isosorbide mononitrate 30 mg 60 mg PO QAM 12/10/18 11/08/21 History tablet,extended release 24 hr magnesium oxide 400 mg PO BID 12/10/18 11/08/21 History metoprolol succinate 50 mg See Rx Instructions .Route .COMPLEX 12/10/18 11/08/21 History tablet,extended release 24 hr nitroglycerin 0.4 mg sublingual 0.4 mg sublingual UD PRN Angina 12/10/18 11/08/21 History tablet (Nitrostat) spironolactone 25 mg tablet 25 mg PO QAM 12/10/18 11/08/21 History warfarin 5 mg tablet 5 mg PO QAM 12/10/18 11/08/21 History amitriptyline 10 mg tablet 10 mg PO HS 02/11/21 11/08/21 History sacubitril 49 mg-valsartan 51 mg 1 tab PO BID 02/11/21 11/08/21 History tablet (Entresto) tramadol 50 mg tablet 100 mg PO Q6H PRN Pain 02/11/21 11/08/21 History empagliflozin 10 mg tablet 10 mg PO DAILY 08/26/21 11/08/21 History furosemide 20 mg tablet 20 mg PO QAM 08/26/21 11/08/21 History meclizine 12.5 mg tablet 12.5 mg PO TID PRN dizziness #20 08/26/21 11/08/21 Rx tabs ondansetron 4 mg disintegrating 4 mg PO Q8H PRN nausea and 08/26/21 11/08/21 Rx tablet vomiting #30 tabs pantoprazole 20 mg tablet,delayed 20 mg PO DAILY 08/26/21 11/08/21 History release metformin 500 mg tablet,extended 1,000 mg PO QAM 11/08/21 11/08/21 History release 24 hr Patient History Medical History Anxiety Atrial flutter Transient/post operative per cardio records in the past Recently discovered again incidentally during ECHO CAD (coronary artery disease) (06/23/13) - BMS to ramus intermedius June 2013 - Acute thrombotic occlusion of the ramus with extension to the left anterior descending and left main in the setting of postoperative lumbar decompressive surgery September of 2013, course complicated by cardiogenic shock, acute myocardial infarction, treated with aspiration thrombectomy, and coronary angioplasty. 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 Jerez On home oxygen therapy 2L N/C when sleeping SOB (shortness of breath) on exertion Spinal stenosis Surgical History H/O mitral valve replacement 2013 @ [facility] [place] History of "mitral valve repair" per cardio records (Secondary to infarct related mitral insufficiency) History of arthroscopy of left knee History of bilateral carpal tunnel release History of cardiac radiofrequency ablation History of colonoscopy History of esophagogastroduodenoscopy (EGD) History of lumbar spinal fusion x2 History of repair of right rotator cuff History of tooth extraction all teeth removed History of umbilical hernia repair ICD (implantable cardioverter-defibrillator) in place 04/14/15@ [facility]--[employer] Status post anal fissurectomy Status post cardiac catheterization "06/23/13 Dr. Jerez 80% stenosis large ramus intermedius, 40% PDA, 70% septal branch LAD" x3 or 4 of them per pt Status post coronary artery stent placement "06/23/13 [facility] [address]. Boggs bare metal stent proximal ramus intermedius" Status post trigger finger release Family History Mother Family history of diabetes mellitus Sister Family history of diabetes mellitus Brother Family history of diabetes mellitus Family history of stomach cancer Other No family history of adverse response to anesthesia Social History Smoking Status: Never smoker Second Hand Exposure: No; Do You Dip or Chew Tobacco: No; Tobacco Cessation Education Requested by Patient: No Hx Alcohol Use: Yes Alcohol type: beer and wine Hx Substance Use: No Preferred Language: Greek Communication Ability: Effective Music Instructor Required: No Beliefs That Will Affect Care: None Current Living Situation: Spouse current occupational status: retired Other Information That Helps Us Care for You: No Feels Safe at Home: Yes Safety Concerns: Feels Safe At This Time Assistive Devices: Cane Review of Systems Review of Systems: Review of Systems: See HPI for pertinent positives. All other 10 point review of systems are negative. Physical Exam Physical Exam: General: no acute distress and stated age Head: normocephalic, no masses, lesions, tenderness or abnormalities Eyes: conjunctiva are pink and non-injected, sclera clear Neck: supple, no adenopathy, no bruits, normal jugular venous pulse, no hepatojugular reflux Chest: normal shape and normal respiratory effort Lungs: clear to auscultation and percussion Cardiac Exam: - regular rate & rhythm, no murmurs gallops or rubs - normal S1, normal S2 Pulses: 2(+) throughout Abdomen: abdomen soft, non-tender, no abnormal masses and no hepatosplenomegaly Musculoskeletal: no gait disturbance, no joint inflammation, no deforming arthritis Extremities: no edema and no cyanosis Neuro: grossly normal exam Results & Data ([facility]) Vital Signs (Past 12 Hours) Vital Signs Temp Pulse Pulse Resp BP Pulse Ox O2 Del Method 11/09/21 11:53 36.8 C 71 19 120/71 96 Room Air 11/09/21 14:03 Room Air 11/09/21 14:01 80 11/09/21 09:42 75 16 120/72 95 Room Air Laboratory Results Laboratory Results - last 24 hr 11/08/21 11/08/21 11/08/21 15:26 15:26 15:26 WBC 5.90 RBC 4.46 L Hgb 13.5 L Hct 40.0 L MCV 89.7 MCH 30.3 MCHC 33.8 RDW Std Deviation 49.9 H RDW Coeff of Chaz 15.2 H Plt Count 182 MPV 11.7 Immature Gran % (Auto) 0.3 Neut % (Auto) 80.9 Lymph % (Auto) 9.8 Howell % (Auto) 7.5 Eos % (Auto) 1.2 Baso % (Auto) 0.3 Neut # (Auto) 4.77 Lymph # (Auto) 0.58 L Howell # (Auto) 0.44 Eos # (Auto) 0.07 Baso # (Auto) 0.02 Immature Gran # (Auto) 0.02 PT 21.0 H INR 2.0 H APTT 40.4 H PTT Ratio 1.5 Sodium Potassium Chloride Carbon Dioxide Anion Gap BUN Creatinine Est Cr Clr Drug Dosing Est GFR ( Amer) Est GFR (Non-Af Amer) BUN/Creatinine Ratio Glucose POC Glucose Estimat Average Glucose Hemoglobin A1c Calcium Magnesium Total Bilirubin AST ALT Alkaline Phosphatase Troponin I High Sens Total Protein Albumin Globulin Albumin/Globulin Ratio POC Stool Occult Blood SARS-CoV-2, RNA, NAAT Blood Type A Positive Antibody Screen NEGATIVE 11/08/21 11/08/21 11/08/21 15:26 18:25 18:26 WBC RBC Hgb Hct MCV MCH MCHC RDW Std Deviation RDW Coeff of Chaz Plt Count MPV Immature Gran % (Auto) Neut % (Auto) Lymph % (Auto) Howell % (Auto) Eos % (Auto) Baso % (Auto) Neut # (Auto) Lymph # (Auto) Howell # (Auto) Eos # (Auto) Baso # (Auto) Immature Gran # (Auto) PT INR APTT PTT Ratio Sodium 138 Potassium 3.9 Chloride 105 Carbon Dioxide 25 Anion Gap 8 BUN 29 H Creatinine 1.52 H Est Cr Clr Drug Dosing 45.5 Est GFR ( Amer) 49.8 Est GFR (Non-Af Amer) 43.0 BUN/Creatinine Ratio 19.1 Glucose 158 H POC Glucose Estimat Average Glucose Hemoglobin A1c Calcium 9.0 Magnesium 1.8 Total Bilirubin 0.5 AST 20 ALT 14 Alkaline Phosphatase 57 Troponin I High Sens 6.7 Total Protein 7.0 Albumin 4.2 Globulin 2.8 Albumin/Globulin Ratio 1.5 POC Stool Occult Blood Pending SARS-CoV-2, RNA, NAAT NEGATIVE Blood Type Antibody Screen 11/08/21 11/09/21 11/09/21 21:11 05:56 05:56 WBC 4.83 RBC 4.61 L Hgb 13.7 L Hct 41.4 MCV 89.8 MCH 29.7 MCHC 33.1 RDW Std Deviation 49.5 H RDW Coeff of Chaz 15.0 H Plt Count 170 MPV 11.7 Immature Gran % (Auto) 0.0 Neut % (Auto) 72.5 Lymph % (Auto) 15.7 Howell % (Auto) 8.9 Eos % (Auto) 2.5 Baso % (Auto) 0.4 Neut # (Auto) 3.50 Lymph # (Auto) 0.76 L Howell # (Auto) 0.43 Eos # (Auto) 0.12 Baso # (Auto) 0.02 Immature Gran # (Auto) 0.00 PT 13.8 H INR 1.3 H APTT PTT Ratio Sodium Potassium Chloride Carbon Dioxide Anion Gap BUN Creatinine Est Cr Clr Drug Dosing Est GFR ( Amer) Est GFR (Non-Af Amer) BUN/Creatinine Ratio Glucose POC Glucose 147 H Estimat Average Glucose Hemoglobin A1c Calcium Magnesium Total Bilirubin AST ALT Alkaline Phosphatase Troponin I High Sens Total Protein Albumin Globulin Albumin/Globulin Ratio POC Stool Occult Blood SARS-CoV-2, RNA, NAAT Blood Type Antibody Screen 11/09/21 11/09/21 11/09/21 05:56 05:56 07:40 WBC RBC Hgb Hct MCV MCH MCHC RDW Std Deviation RDW Coeff of Chaz Plt Count MPV Immature Gran % (Auto) Neut % (Auto) Lymph % (Auto) Howell % (Auto) Eos % (Auto) Baso % (Auto) Neut # (Auto) Lymph # (Auto) Howell # (Auto) Eos # (Auto) Baso # (Auto) Immature Gran # (Auto) PT INR APTT PTT Ratio Sodium 139 Potassium 3.9 Chloride 106 Carbon Dioxide 27 Anion Gap 6 BUN 23 Creatinine 1.27 Est Cr Clr Drug Dosing 54.5 Est GFR ( Amer) 61.9 Est GFR (Non-Af Amer) 53.4 BUN/Creatinine Ratio 18.1 Glucose 115 H POC Glucose 110 H Estimat Average Glucose 177 Hemoglobin A1c 7.8 H Calcium 8.8 Magnesium 1.8 Total Bilirubin 1.0 D AST 18 ALT 12 Alkaline Phosphatase 53 Troponin I High Sens Total Protein 6.3 Albumin 3.8 Globulin 2.5 Albumin/Globulin Ratio 1.5 POC Stool Occult Blood SARS-CoV-2, RNA, NAAT Blood Type Antibody Screen 11/09/21 12:06 WBC RBC Hgb Hct MCV MCH MCHC RDW Std Deviation RDW Coeff of Chaz Plt Count MPV Immature Gran % (Auto) Neut % (Auto) Lymph % (Auto) Howell % (Auto) Eos % (Auto) Baso % (Auto) Neut # (Auto) Lymph # (Auto) Howell # (Auto) Eos # (Auto) Baso # (Auto) Immature Gran # (Auto) PT INR APTT PTT Ratio Sodium Potassium Chloride Carbon Dioxide Anion Gap BUN Creatinine Est Cr Clr Drug Dosing Est GFR ( Amer) Est GFR (Non-Af Amer) BUN/Creatinine Ratio Glucose POC Glucose 129 H Estimat Average Glucose Hemoglobin A1c Calcium Magnesium Total Bilirubin AST ALT Alkaline Phosphatase Troponin I High Sens Total Protein Albumin Globulin Albumin/Globulin Ratio POC Stool Occult Blood SARS-CoV-2, RNA, NAAT Blood Type Antibody Screen Medications Administered Current Inpatient Medications Acetaminophen (Acetaminophen 325 Mg Tab) 650 mg PO Q4H PRN PRN Reason: Pain or Fever Stop: 12/08/21 20:50 Al Hydrox/Mg Hydrox/Simethicone (Aluminum/Magnesium Susp 30 Ml Udc) 15 ml PO Q4H PRN PRN Reason: Dyspepsia Stop: 12/08/21 20:50 Amitriptyline HCl (Amitriptyline Hcl 10 Mg Tab) 10 mg PO HS ZANDER Stop: 12/08/21 20:59 Last Admin: 11/08/21 21:19 Dose: 10 mg Atorvastatin Calcium (Atorvastatin 40 Mg Tab) 40 mg PO PM ZANDER Stop: 12/08/21 20:59 Last Admin: 11/08/21 21:19 Dose: 40 mg Dextrose (Dextrose 50% 50 Ml Syringe) 25 - 50 ml IV UD PRN; Protocol PRN Reason: Hypoglycemia Protocol Stop: 12/08/21 20:50 Furosemide (Furosemide 20 Mg Tab) 20 mg PO QAM [facility] Stop: 12/09/21 08:59 Last Admin: 11/09/21 09:37 Dose: 20 mg Glucagon (Glucagon For Inj 1 Mg Vial) 1 mg SQ UD PRN; Protocol PRN Reason: Hypoglycemia Protocol Stop: 12/08/21 20:50 Glucose (Glucose 40% Gel 15 Gm Tube) 15 - 30 gm PO UD PRN; Protocol PRN Reason: Hypoglycemia Protocol Stop: 12/08/21 20:50 Glucose (Glucose 10 Tab/Tube) 4 - 8 tab PO UD PRN; Protocol PRN Reason: Hypoglycemia Treatment Stop: 12/08/21 20:50 Insulin Aspart (Insulin Aspart Per Unit) 0 units SC ACHS [facility] Stop: 12/08/21 20:59 Last Admin: 11/09/21 12:21 Dose: Not Given Insulin Glargine (Lantus Per Unit Charge) 0 - 10 units SQ BID [facility] Stop: 12/08/21 20:59 Last Admin: 11/09/21 09:39 Dose: Not Given Isosorbide Mononitrate (Isosorbide Howell Extended Rel 60 Mg Tabcr) 60 mg PO QAM [facility] Stop: 12/09/21 08:59 Last Admin: 11/09/21 09:37 Dose: 60 mg Magnesium Oxide (Magnesium Oxide 400 Mg Tab) 400 mg PO BID [facility] Stop: 12/08/21 20:59 Last Admin: 11/09/21 09:38 Dose: 400 mg Metoprolol Succinate (Metoprolol Succ 25mg Ext Rel Tab) 75 mg PO QAM [facility] Stop: 12/09/21 08:59 Last Admin: 11/09/21 09:38 Dose: 75 mg Metoprolol Succinate (Metoprolol Succ 50mg Ext Rel Tab) 50 mg PO QPM [facility] Stop: 12/09/21 20:59 Miscellaneous (Carbohydrates For Hypoglycemia ) 15 - 30 gm PO UD PRN PRN Reason: Hypoglycemia Protocol Stop: 12/08/21 20:50 Nitroglycerin (Nitroglycerin Sl 0.4 Mg/Tab Tab) 0.4 mg SL UD PRN PRN Reason: Angina Stop: 12/08/21 18:39 Ondansetron HCl (Ondansetron 4 Mg Od Tab) 4 mg PO Q8H PRN PRN Reason: nausea and vomiting Stop: 12/08/21 18:39 Ondansetron HCl (Ondansetron Inj 2 Mg/Ml 2 Ml Vial) 4 mg IV Q6H PRN PRN Reason: Nausea Stop: 12/08/21 20:50 Pantoprazole Sodium (Pantoprazole 40 Mg Tab) 40 mg PO DAILY [facility] Stop: 12/09/21 08:59 Last Admin: 11/09/21 09:37 Dose: 40 mg Sacubitril/Valsartan (Valsartan/Sacubitril 51/49 Mg Tab) 1 tab PO BID [facility] Stop: 12/08/21 20:59 Last Admin: 11/09/21 09:38 Dose: 1 tab Spironolactone (Spironolactone 25 Mg Tab) 25 mg PO QAM [facility] Stop: 12/09/21 08:59 Last Admin: 11/09/21 09:38 Dose: 25 mg Tramadol HCl (Tramadol Hcl 50 Mg Tablet) 100 mg PO Q6H PRN PRN Reason: Pain Stop: 12/08/21 18:39 (1) CHF (congestive heart failure) Heart failure chronicity: acute on chronic Heart failure type: unspecified Qualified Code(s): I50.9 - Heart failure, unspecified
--- NOTE | 2021-11-09 17:52 | Hospitalist Progress Note ---
Date of Service November 09, 2021 Assessment & Plan (1) Rectal bleed: Plan: History of anal fistula with fistulotomy done on 2017 Last Colonoscopy in 2017 - Anal stricture found on digital rectal exam. The entire examined colon is normal. INR on admission 2 and hgb above 13 Receive IV vitamin K in the ER Currently bleeding stopped GI eval noted Planned for colonoscopy v fleg sig tomorrow Bowel prep NPO PMN Hold anticoagulation Hb stable Continue monitor closely Hx Atrial flutter Rate control Continue Imdur Coumadin on hold Valvular heart disease s/p mitral valve repair/mitral valve ring04/2014 Last echo on 06/28 showed prior mitral valve repair Stable Chronic CHF Last ECHO on 06/28 showed left ventricle is borderline dilated. Moderate diffuse left ventricular hypokinesis. LV with ejection function 30 to 34%. CXR showed cardiomegaly with pulmonary vascular congestion and interstitial coarsening suggestive of pulmonary edema. Currently euvolemic On home diuretcis CAD s/p BMS Resume plavix CKD stage 4 Creatinine 1.5 on admission, at baseline Cr is 1.27 todady Continue monitor BMP Hyperlipidemia Continue Atorvastatin Uncontrolled Type 2 Diabetes Hba1c 7.8 Continue to hold PO diabetes On insulin sliding scale Ischemic cardiomyopathy Status post single-chamber prophylactic defibrillator, 04/14/2015.[employer] Continue Entresto, spironolactone, Imdur stable DVT px INR 2 on admission. Coumadin on hold for procedure CODE Status FULL code Admission and Anticipated Discharge Date Admission Date: November 08, 2021 Subjective Patient seen and examined Reports rectal bleeding currently stopped Reports some rectal discomfort Denied any nausea, vomiting, abd pain Denied any chest pain, cough, SOB, palpitations Denied fevers, chills Denied dysuria, freq, urgency Physical Exam Constitutional: + well hydrated; no acute distress Eyes: PERRL, conjunctivae normal, anicteric sclerae ENMT: external ear and nose normal, oropharynx normal Respiratory: normal respiratory effort, lungs clear to auscultation Cardiovascular: Rate/Rhythm: regular rate and regular rhythm S1 S2 Gastrointestinal (Abdomen): normal bowel sounds, soft, nontender, no hepatosplenomegaly Musculoskeletal: No pedal edema Neurologic: PERRL, EOMI, accommodation nl, no face palsy, no dysarthria Psychiatric: A+Ox3, euthymic affect Results & Data Results & Data ([facility]) Vital Signs (Past 12 Hours) Vital Signs Temp Pulse Pulse Resp BP Pulse Ox O2 Del Method 11/09/21 15:05 82 11/09/21 15:04 36.5 C 79 20 107/66 94 11/09/21 11:53 36.8 C 71 19 120/71 96 Room Air 11/09/21 14:03 Room Air 11/09/21 14:01 80 11/09/21 09:42 75 16 120/72 95 Room Air Laboratory Results Abnormal lab results 11/08/21 11/08/21 11/09/21 Range/Units 18:26 21:11 05:56 RBC 4.61 L (4.63-6.08) M/uL Hgb 13.7 L (14.0-18.0) g/dl RDW Std Deviation 49.5 H (36.4-46.3) fL RDW Coeff of Chaz 15.0 H (11.5-14.5) % Lymph # (Auto) 0.76 L (1.2-3.4) K/uL PT (9.0-12.0) Seconds INR (0.9-1.1) Glucose (70-99(Fasting)) mg/dl POC Glucose 147 H (70-99) mg/dl Hemoglobin A1c (4.5-5.6) % POC Stool Occult Blood Positive A (Negative) 11/09/21 11/09/21 11/09/21 Range/Units 05:56 05:56 05:56 RBC (4.63-6.08) M/uL Hgb (14.0-18.0) g/dl RDW Std Deviation (36.4-46.3) fL RDW Coeff of Chaz (11.5-14.5) % Lymph # (Auto) (1.2-3.4) K/uL PT 13.8 H (9.0-12.0) Seconds INR 1.3 H (0.9-1.1) Glucose 115 H (70-99(Fasting)) mg/dl POC Glucose (70-99) mg/dl Hemoglobin A1c 7.8 H (4.5-5.6) % POC Stool Occult Blood (Negative) 11/09/21 11/09/21 11/09/21 Range/Units 07:40 12:06 16:34 RBC (4.63-6.08) M/uL Hgb (14.0-18.0) g/dl RDW Std Deviation (36.4-46.3) fL RDW Coeff of Chaz (11.5-14.5) % Lymph # (Auto) (1.2-3.4) K/uL PT (9.0-12.0) Seconds INR (0.9-1.1) Glucose (70-99(Fasting)) mg/dl POC Glucose 110 H 129 H 112 H (70-99) mg/dl Hemoglobin A1c (4.5-5.6) % POC Stool Occult Blood (Negative)
[2021-11-09] MEDS ORDERED: METOPROLOL SUCC 50MG EXT REL TAB PO SCH (21:00)
[2021-11-09] MEDS: AMITRIPTYLINE HCL 10 MG TAB PO SCH (21:31)
[2021-11-09] MEDS: ATORVASTATIN 40 MG TAB PO SCH (21:31)
[2021-11-10] MEDS: INSULIN ASPART PER UNIT SC SCH (07:50)
[2021-11-10] MEDS ORDERED: CLOPIDOGREL BISULFATE 75 MG TAB PO SCH (09:00)
[2021-11-10] MEDS: LANTUS PER UNIT CHARGE SQ SCH (09:16)
[2021-11-10] MEDS: PANTOprazole 40 MG TAB PO SCH (09:17)
[2021-11-10] MEDS: MAGNESIUM OXIDE 400 MG TAB PO SCH (09:17)
[2021-11-10] MEDS: SPIRONOLACTONE 25 MG TAB PO SCH (09:17)
[2021-11-10] MEDS: FUROSEMIDE 20 MG TAB PO SCH (09:17)
[2021-11-10] MEDS: METOPROLOL SUCC 25MG EXT REL TAB PO SCH (09:29)
[2021-11-10] MEDS: VALSARTAN/SACUBITRIL 51/49 MG TAB PO SCH (09:29)
[2021-11-10] MEDS: ISOSORBIDE MONO EXTENDED REL 60 MG TABCR PO SCH (09:30)
[2021-11-10 09:50] LABS: Basophils # (auto) 0.02 K/uL (0-0.2); Basophils % (auto) 0.4 %; Eosinophils # (auto) 0.09 K/uL (0-0.50); Eosinophils % (auto) 1.9 %; Hematocrit (blood only) 41.9 % (40.1-51.0); Immature Granulocytes # (auto) 0.01 K/uL (0.00-0.02); Immature Granulocytes % (auto) 0.2 %; Lymphocytes # (auto) 0.57 K/uL (1.2-3.4); Lymphocytes % (auto) 12.3 %; Mean Corpuscular Hgb Conc 33.4 g/dL (32.0-36.0); Mean Corpuscular Volume 89.9 fL (80.0-100.0); Mean Platelet Volume 11.5 fL (9.4-12.4); Monocytes # (auto) 0.37 K/uL (0.24-0.82); Neutrophils # (auto) 3.59 K/uL (1.4-6.5); Neutrophils % (auto) 77.2 %; Platelet Count 185 K/uL (130-400); RDW Standard Deviation 49.1 fL (36.4-46.3); Red Blood Count 4.66 M/uL (4.63-6.08); White Blood Count 4.65 K/ul (4.8-10.8)
[2021-11-10 10:05] LABS: INR 1.1 (0.9-1.1); Prothrombin Time 11.6 Seconds (9.0-12.0)
[2021-11-10 10:10] LABS: Albumin Globulin Ratio 1.4 (0.9-2); Albumin Level 3.8 gm/dl (3.4-5.0); BUN Creatinine Ratio 16.4 (10-20); Bilirubin,Total 1.2 mg/dl (0.2-1.0); Creatinine Clr Calc Pharmacy 56.1 ml/min; Globulin 2.8 gm/dl (2.5-4.0); Magnesium 1.8 mg/dl (1.7-2.4); Potassium 3.8 mmol/L (3.5-5.1); Total Protein 6.6 gm/dl (6.0-8.3)
--- NOTE | 2021-11-10 10:43 | Anesthesiology Consultation ---
Date of Service November 10, 2021 History Surgery Operation Date: 11/10/21 16:30 Proposed Procedures p Colonoscopy Dr Erazo - Shirley Erazo, Height/Weight Height: 5 ft 9 in Weight: 96 kg Allergies Allergy/AdvReac Type Severity Reaction Status Date / Time ciprofloxacin Allergy Severe ANAPHYLAXIS Verified 11/10/21 10:28 doxycycline Allergy Severe ANAPHYLAXIS Verified 11/10/21 10:28 Sulfa (Sulfonamide Allergy Severe Anaphylaxis Verified 11/10/21 10:28 Antibiotics) Medications Home Medications Medication Instructions Recorded Confirmed Last Taken atorvastatin 40 mg tablet 40 mg PO PM 12/10/18 11/08/21 11/07/21 clopidogrel 75 mg tablet 75 mg PO QAM 12/10/18 11/08/21 11/08/21 fluticasone propionate 50 2 spray intranasal DAILY PRN 12/10/18 11/08/21 Unknown mcg/actuation nasal Allergy Symptoms spray,suspension (Flonase Allergy Relief) isosorbide mononitrate 30 mg 60 mg PO QAM 12/10/18 11/08/21 11/08/21 tablet,extended release 24 hr magnesium oxide 400 mg PO BID 12/10/18 11/08/21 11/08/21 08:00 metoprolol succinate 50 mg See Rx Instructions .Route .COMPLEX 12/10/18 11/08/21 11/08/21 08:00 tablet,extended release 24 hr nitroglycerin 0.4 mg sublingual 0.4 mg sublingual UD PRN Angina 12/10/18 11/08/21 Unknown tablet (Nitrostat) spironolactone 25 mg tablet 25 mg PO QAM 12/10/18 11/08/21 11/08/21 warfarin 5 mg tablet 5 mg PO QAM 12/10/18 11/08/21 11/08/21 amitriptyline 10 mg tablet 10 mg PO HS 02/11/21 11/08/21 11/07/21 sacubitril 49 mg-valsartan 51 mg 1 tab PO BID 02/11/21 11/08/21 11/08/21 08:00 tablet (Entresto) tramadol 50 mg tablet 100 mg PO Q6H PRN Pain 02/11/21 11/08/21 Unknown empagliflozin 10 mg tablet 10 mg PO DAILY 08/26/21 11/08/21 11/08/21 furosemide 20 mg tablet 20 mg PO QAM 08/26/21 11/08/21 11/08/21 meclizine 12.5 mg tablet 12.5 mg PO TID PRN dizziness #20 08/26/21 11/08/21 Unknown tabs ondansetron 4 mg disintegrating 4 mg PO Q8H PRN nausea and 08/26/21 11/08/21 Unknown tablet vomiting #30 tabs pantoprazole 20 mg tablet,delayed 20 mg PO DAILY 08/26/21 11/08/21 11/08/21 release metformin 500 mg tablet,extended 1,000 mg PO QAM 11/08/21 11/08/21 11/08/21 release 24 hr Active Medications Generic Name Dose Route Start Last Admin Trade Name Temoq PRN Reason Stop Dose Admin Amitriptyline HCl 10 mg 11/08/21 21:00 11/09/21 21:31 Amitriptyline Hcl 10 Mg Tab PO 12/08/21 20:59 10 mg HS ZANDER Administration Atorvastatin Calcium 40 mg 11/08/21 21:00 11/09/21 21:31 Atorvastatin 40 Mg Tab PO 12/08/21 20:59 40 mg PM ZANDER Administration Clopidogrel Bisulfate 75 mg 11/10/21 09:00 11/10/21 09:16 Clopidogrel Bisulfate 75 Mg Tab PO 12/10/21 08:59 Not Given QAM ZANDER Furosemide 20 mg 11/09/21 09:00 11/10/21 09:17 Furosemide 20 Mg Tab PO 12/09/21 08:59 Not Given QAM ZANDER Insulin Aspart 0 units 11/08/21 21:00 11/10/21 07:50 Insulin Aspart Per Unit SC 12/08/21 20:59 Not Given ACHS [facility] Insulin Glargine 0 - 10 units 11/08/21 21:00 11/10/21 09:16 Lantus Per Unit Charge SQ 12/08/21 20:59 Not Given BID ZANDER Isosorbide Mononitrate 60 mg 11/09/21 09:00 11/10/21 09:30 Isosorbide [place] Extended Rel 60 Mg Tabcr PO 12/09/21 08:59 60 mg QAM ZANDER Administration Magnesium Oxide 400 mg 11/08/21 21:00 11/10/21 09:17 Magnesium Oxide 400 Mg Tab PO 12/08/21 20:59 Not Given BID ZANDER Metoprolol Succinate 75 mg 11/09/21 09:00 11/10/21 09:29 Metoprolol Succ 25mg Ext Rel Tab PO 12/09/21 08:59 75 mg QAM ZANDER Administration Metoprolol Succinate 50 mg 11/09/21 21:00 11/09/21 21:30 Metoprolol Succ 50mg Ext Rel Tab PO 12/09/21 20:59 50 mg QPM ZANDER Administration Pantoprazole Sodium 40 mg 11/09/21 09:00 11/10/21 09:17 Pantoprazole 40 Mg Tab PO 12/09/21 08:59 Not Given DAILY ZANDER Sacubitril/Valsartan 1 tab 11/08/21 21:00 11/10/21 09:29 Valsartan/Sacubitril 51/49 Mg Tab PO 12/08/21 20:59 1 tab BID ZANDER Administration Spironolactone 25 mg 11/09/21 09:00 11/10/21 09:17 Spironolactone 25 Mg Tab PO 12/09/21 08:59 Not Given QAM ZANDER NPO Date Last Intake of Fluids: 11/10/21 Time Last Intake of Fluids: 08:00 Date Last Intake of Solids: 11/08/21 Time Last Intake of Solids: 18:00 Past Medical History Medical History Anxiety Atrial flutter Transient/post operative per cardio records in the past Recently discovered again incidentally during ECHO CAD (coronary artery disease) (06/23/13) - BMS to ramus intermedius June 2013 - Acute thrombotic occlusion of the ramus with extension to the left anterior descending and left main in the setting of postoperative lumbar decompressive surgery September of 2013, course complicated by cardiogenic shock, acute myocardial infarction, treated with aspiration thrombectomy, and coronary angioplasty. 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 Jerez On home oxygen therapy 2L N/C when sleeping SOB (shortness of breath) on exertion Spinal stenosis Exercise / Class Metabolic Activity III < 4 Walking/Shop/Light housework Past Family History Family History Mother Family history of diabetes mellitus Sister Family history of diabetes mellitus Brother Family history of diabetes mellitus Family history of stomach cancer Other No family history of adverse response to anesthesia Past Surgical History Surgical History H/O mitral valve replacement 2013 @ [facility] [place] History of "mitral valve repair" per cardio records (Secondary to infarct related mitral insufficiency) History of arthroscopy of left knee History of bilateral carpal tunnel release History of cardiac radiofrequency ablation History of colonoscopy History of esophagogastroduodenoscopy (EGD) History of lumbar spinal fusion x2 History of repair of right rotator cuff History of tooth extraction all teeth removed History of umbilical hernia repair ICD (implantable cardioverter-defibrillator) in place 04/14/15@ [facility]--[employer] Status post anal fissurectomy Status post cardiac catheterization "06/23/13 Dr. Jerez 80% stenosis large ramus intermedius, 40% PDA, 70% septal branch LAD" x3 or 4 of them per pt Status post coronary artery stent placement "06/23/13 [facility] Dr. Boggs bare metal stent proximal ramus intermedius" Status post trigger finger release Past Anesthesia History No Hx of Anesthesia Complications and No Family Hx of Anesthesia Complications History of PONV No Hx of PONV and No Hx of Motion Sickness Social History Smoking Status: Never smoker Do You Dip or Chew Tobacco: No Hx Alcohol Use: Yes Alcohol type: beer and wine alcohol intake frequency: holidays/special occasions only Hx Substance Use: No substance use type: does not use Review of Systems Constitutional: as per Subjective / HPI Eyes: as per Subjective / HPI Ear, Nose, Mouth, Throat: as per Subjective / HPI Respiratory: as per Subjective / HPI Cardiovascular: as per Subjective / HPI Gastrointestinal: as per Subjective / HPI Genitourinary (Male): + as per Subjective / HPI Musculoskeletal: as per Subjective / HPI Integumentary: as per Subjective / HPI Neurologic: as per Subjective / HPI Psychiatric: as per Subjective / HPI Endocrine: as per Subjective / HPI Hematologic / Lymphatic: as per Subjective / HPI Allergy / Immunological: as per Subjective / HPI Physical Exam Vital Signs Last Vital Signs Temp 36.5 C 11/10/21 08:01 Pulse 80 11/10/21 08:01 Resp 18 11/10/21 08:01 BP 127/78 11/10/21 08:01 Pulse Ox 94 11/10/21 08:01 O2 Del Method 11/10/21 08:01 O2 Flow Rate 0 11/08/21 15:08 Constitutional + obese ENMT Mouth: + dentures (upper); no TMJ abnormality and no dentition abnormality Thyromental Distance: > or= 3.5 Finger Breadths Mallampati Class: III Neck normal visual inspection Respiratory normal respiratory effort Auscultation: lungs clear to auscultation bilaterally Cardiovascular Rate/Rhythm: regular rate and regular rhythm Heart Sounds: + murmur (holosystolic murmur 2/6) Musculoskeletal Spine: normal cervical ROM Extremities: extremities normal to inspection Neurologic moves all extremities Psychiatric Orientation: alert and oriented x 3 Testing Laboratory Results 11/10/21 09:22 11/10/21 09:22 PT 11.6 Seconds (9.0-12.0) 11/10/21 09:22 INR 1.1 (0.9-1.1) 11/10/21 09:22 APTT 40.4 Seconds (21.0-31.0) H 11/08/21 15:26 Hemoglobin A1c 7.8 % (4.5-5.6) H 11/09/21 05:56 Blood Type A Positive 11/08/21 15:26 Antibody Screen NEGATIVE 11/08/21 15:26 11/10/21 07:46 POC Glucose 108 H
--- NOTE | 2021-11-10 10:44 | Anesthesiology Progress Note ---
Date of Service November 10, 2021 Anesthesia Post Procedure Vital Signs Vital Signs: Temp Pulse Pulse Pulse Resp BP BP 11/10/21 08:01 36.5 C 80 18 127/78 11/10/21 07:33 81 11/10/21 04:00 36.8 C 82 18 103/64 11/09/21 23:00 36.4 C L 80 18 122/79 11/09/21 22:16 72 11/09/21 18:58 36.4 C L 81 18 121/76 11/09/21 15:05 82 11/09/21 15:04 36.5 C 79 20 107/66 11/09/21 11:53 36.8 C 71 19 120/71 11/09/21 14:03 11/09/21 14:01 80 Pulse Ox O2 Del Method 11/10/21 08:01 94 Room Air 11/10/21 07:33 11/10/21 04:00 94 Room Air 11/09/21 23:00 93 Room Air 11/09/21 22:16 11/09/21 18:58 94 Room Air 11/09/21 15:05 11/09/21 15:04 94 11/09/21 11:53 96 Room Air 11/09/21 14:03 Room Air 11/09/21 14:01 Transfer of Care Handoff Completed per policy Notes Mental Status: alert / awake / arousable and participated in evaluation Patient Amnestic to Procedure: Yes Nausea / Vomiting: adequately controlled Pain: adequately controlled Airway Patency, RR, SpO2: stable & adequate BP & HR: stable & adequate Hydration State: stable & adequate Anesthetic Complications: no major complications apparent and Pt Satisfied with anesthetic care
[2021-11-10] MEDS ORDERED: PROPOFOL IV EMULSION 10 MG/ML 20 ML VIAL IV ONE (10:52)
--- NOTE | 2021-11-10 10:53 | History & Physical Report ---
Date of Service November 10, 2021 Assessment & Plan (1) Rectal bleeding: Plan: colonoscopy today Admission and Anticipated Discharge Date Admission Date: November 08, 2021 History of Present Illness Chief Complaint: rectal bleeding Primary Care Provider: Umer Nur MD rectal bleeding Allergies Allergy/AdvReac Type Severity Reaction Status Date / Time ciprofloxacin Allergy Severe ANAPHYLAXIS Verified 11/10/21 10:28 doxycycline Allergy Severe ANAPHYLAXIS Verified 11/10/21 10:28 Sulfa (Sulfonamide Allergy Severe Anaphylaxis Verified 11/10/21 10:28 Antibiotics) Home Medications Medication Instructions Recorded Confirmed Type atorvastatin 40 mg tablet 40 mg PO PM 12/10/18 11/08/21 History clopidogrel 75 mg tablet 75 mg PO QAM 12/10/18 11/08/21 History fluticasone propionate 50 2 spray intranasal DAILY PRN 12/10/18 11/08/21 History mcg/actuation nasal Allergy Symptoms spray,suspension (Flonase Allergy Relief) isosorbide mononitrate 30 mg 60 mg PO QAM 12/10/18 11/08/21 History tablet,extended release 24 hr magnesium oxide 400 mg PO BID 12/10/18 11/08/21 History metoprolol succinate 50 mg See Rx Instructions .Route .COMPLEX 12/10/18 11/08/21 History tablet,extended release 24 hr nitroglycerin 0.4 mg sublingual 0.4 mg sublingual UD PRN Angina 12/10/18 11/08/21 History tablet (Nitrostat) spironolactone 25 mg tablet 25 mg PO QAM 12/10/18 11/08/21 History warfarin 5 mg tablet 5 mg PO QAM 12/10/18 11/08/21 History amitriptyline 10 mg tablet 10 mg PO HS 02/11/21 11/08/21 History sacubitril 49 mg-valsartan 51 mg 1 tab PO BID 02/11/21 11/08/21 History tablet (Entresto) tramadol 50 mg tablet 100 mg PO Q6H PRN Pain 02/11/21 11/08/21 History empagliflozin 10 mg tablet 10 mg PO DAILY 08/26/21 11/08/21 History furosemide 20 mg tablet 20 mg PO QAM 08/26/21 11/08/21 History meclizine 12.5 mg tablet 12.5 mg PO TID PRN dizziness #20 08/26/21 11/08/21 Rx tabs ondansetron 4 mg disintegrating 4 mg PO Q8H PRN nausea and 08/26/21 11/08/21 Rx tablet vomiting #30 tabs pantoprazole 20 mg tablet,delayed 20 mg PO DAILY 08/26/21 11/08/21 History release metformin 500 mg tablet,extended 1,000 mg PO QAM 11/08/21 11/08/21 History release 24 hr Past Med/Surg History Medical History Anxiety Atrial flutter Transient/post operative per cardio records in the past Recently discovered again incidentally during ECHO CAD (coronary artery disease) (06/23/13) - BMS to ramus intermedius June 2013 - Acute thrombotic occlusion of the ramus with extension to the left anterior descending and left main in the setting of postoperative lumbar decompressive surgery September of 2013, course complicated by cardiogenic shock, acute myocardial infarction, treated with aspiration thrombectomy, and coronary angioplasty. 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 Jerez On home oxygen therapy 2L N/C when sleeping SOB (shortness of breath) on exertion Spinal stenosis Surgical History H/O mitral valve replacement 2013 @ [facility] [place] History of "mitral valve repair" per cardio records (Secondary to infarct related mitral insufficiency) History of arthroscopy of left knee History of bilateral carpal tunnel release History of cardiac radiofrequency ablation History of colonoscopy History of esophagogastroduodenoscopy (EGD) History of lumbar spinal fusion x2 History of repair of right rotator cuff History of tooth extraction all teeth removed History of umbilical hernia repair ICD (implantable cardioverter-defibrillator) in place 04/14/15@ [facility]--[employer] Status post anal fissurectomy Status post cardiac catheterization "06/23/13 Dr. Jerez 80% stenosis large ramus intermedius, 40% PDA, 70% septal branch LAD" x3 or 4 of them per pt Status post coronary artery stent placement "06/23/13 [facility] Dr. Boggs bare metal stent proximal ramus intermedius" Status post trigger finger release Family History Mother Family history of diabetes mellitus Sister Family history of diabetes mellitus Brother Family history of diabetes mellitus Family history of stomach cancer Other No family history of adverse response to anesthesia Social History Smoking Status: Never smoker Second Hand Exposure: No; Do You Dip or Chew Tobacco: No; Tobacco Cessation Education Requested by Patient: No Hx Alcohol Use: Yes Alcohol type: beer and wine Hx Substance Use: No Preferred Language: Vietnamese Communication Ability: Effective Airline Captain Required: No Beliefs That Will Affect Care: None Current Living Situation: Spouse current occupational status: retired Other Information That Helps Us Care for You: No Feels Safe at Home: Yes Safety Concerns: Feels Safe At This Time Assistive Devices: Cane Results & Data ([facility]) Vital Signs (Past 12 Hours) Vital Signs Temp Pulse Pulse Pulse Resp BP Pulse Ox 11/10/21 08:01 36.5 C 80 18 127/78 94 11/10/21 07:33 81 11/10/21 04:00 36.8 C 82 18 103/64 94 11/09/21 23:00 36.4 C L 80 18 122/79 93 O2 Del Method 11/10/21 08:01 Room Air 11/10/21 07:33 11/10/21 04:00 Room Air 11/09/21 23:00 Room Air Code Status & VTE Plan VTE Prophylaxis Plan VTE Prophylaxis will be ordered: No
[2021-11-10] MEDS ORDERED: PHENYLEPHRINE 100MCG/ML 5ML SYR ONE (11:19)
--- NOTE | 2021-11-10 11:19 | GI REPORT ---
Patient Name: Satish Holcomb Procedure Date: 11/10/2021 10:56 AM Date of : 1940 Admit Type: Inpatient Age: 81 Gender: Male Attending MD: Shirley Erazo DO Procedure: Colonoscopy Providers: Shirley Erazo DO Referring MD: Mary Anne Chopra Md Indications: Last colonoscopy 5 years ago, Rectal bleeding Medicines: Propofol per Anesthesia Complications: No immediate complications. Estimated blood loss: None. Estimated Blood Loss: Estimated blood loss: none. Procedure: Pre-Anesthesia Assessment: - Prior to the procedure, a History and Physical was performed, and patient medications, allergies and sensitivities were reviewed. The patient's tolerance of previous anesthesia was reviewed. - The risks and benefits of the procedure and the sedation options and risks were discussed with the patient. All questions were answered and informed consent was obtained. - Patient identification and proposed procedure were verified prior to the procedure by the physician and the nurse. The procedure was verified in the pre-procedure area in the procedure room. - Mental Status Examination: alert and oriented. Airway Examination: normal oropharyngeal airway and neck mobility. Respiratory Examination: clear to auscultation. CV Examination: normal. Abdominal Examination: bowel sounds present, abdomen soft and non-tender, no masses or organomegaly noted. - ASA Grade Assessment: III - A patient with severe systemic disease. After I obtained informed consent, the scope was passed under direct vision. Throughout the procedure, the patient's blood pressure, pulse, and oxygen saturations were monitored continuously. The Colonoscope was introduced through the anus and advanced to the cecum, identified by appendiceal orifice and ileocecal valve. The colonoscopy was performed without difficulty. The patient tolerated the procedure well. The quality of the bowel preparation was good. Findings: The perianal and digital rectal examinations were normal. Pertinent negatives include normal sphincter tone and no palpable rectal lesions. A benign-appearing, intrinsic mild stenosis was found at the anus and was traversed. The exam was otherwise without abnormality. Impression: - Stricture at the anus. Able to complete procedure with ease. THis was the source of rectal bleeding. - The examination was otherwise normal. - No specimens collected. Recommendation: - Repeat colonoscopy in 5 years for surveillance given history of polyps. - Return to primary care physician as previously scheduled. - Discharge patient to home. Shirley Erazo D.O. Shirley Erazo, 11/10/2021 11:18:44 AM This report has been signed electronically. Note Initiated On: 11/10/2021 10:56 AM Number of Addenda: 0 I attest to the content of the Intraoperative Record and orders documented therein, exceptions below {[id number]}
--- NOTE | 2021-11-10 13:09 | Discharge Summary ---
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 History obtained from patient and at bedside ( helped due to patient decreased hearing function). Pt said for about 4 weeks he has been having a sore around his anal area. He said he went to the urgent care today to get it check. He said that at the urgent care during examination while they were applied pressure around his anal area, he developed a rectal bleed; then he was referred to the ER to get it eval. When he arrived in the ER, the ER provider said there was blood in his rectum and every times they wiped the blood, the anal area quickly covered with blood. Pt said about 5 yrs ago he had a fistulotomy done for the perianal fistula. He said that during that time he used to have recurrent rectal bleed. He said that he had a normal bowel movement last night. He is INR to 2. In the ER he was given Vit K since he is on coumadin to stop the bleeding. Denies any chest pain, palpitation, dizziness, SOB and fever. Admission Exam Per Admitting Provider General- No acute distress Head- atraumatic Eyes- PERRL, EOMI, ENT- oropharynx clear, +decrease hearing function Neck- supple, no JVD Lungs- clear to auscultation Heart- regular rhythm; + murmur Abdomen- normal bowel sounds, soft, nontender Rectum: No rectal prolapse, tenderness when palpate around the right side of the anus area (5'oclock window), small blood was seen on the gauze that was placed, bleeding stopped, no digital exam done to avoid rebleeding from the pressure Extremities- no calf tenderness Neuro- alert, oriented x 3; PERRL, EOMI; no facial palsy; no dysarthria Skin- warm & dry Principal Diagnosis Rectal bleeding Discharge Exam Constitutional + well hydrated; no acute distress Eyes PERRL, conjunctivae normal, anicteric sclerae ENMT external ear and nose normal, oropharynx normal Respiratory normal respiratory effort, lungs clear to auscultation Cardiovascular Rate/Rhythm: regular rate and regular rhythm S1 S2 Gastrointestinal (Abdomen) normal bowel sounds, soft, nontender, no hepatosplenomegaly Musculoskeletal no cyanosis or clubbing, extremities motor strength 5/5 Neurologic PERRL, EOMI, accommodation nl, no face palsy, no dysarthria Psychiatric A+Ox3, euthymic affect Discharge Data Allergies Allergy/AdvReac Type Severity Reaction Status Date / Time ciprofloxacin Allergy Severe ANAPHYLAXIS Verified 11/10/21 10:28 doxycycline Allergy Severe ANAPHYLAXIS Verified 11/10/21 10:28 Sulfa (Sulfonamide Allergy Severe Anaphylaxis Verified 11/10/21 10:28 Antibiotics) Consultations 11/08/21 17:57 ED Decision to Admit Stat 11/08/21 20:51 Consult Gastroenterology Routine 11/09/21 12:22 Consult Cardiology Routine Procedures Performed Operation Date: 11/10/21 16:30 Actual Procedures p Colonoscopy - Shirley Erazo, The perianal and digital rectal examinations were normal. Pertinent negatives include normal sphincter tone and no palpable rectal lesions. A benign-appearing, intrinsic mild stenosis was found at the anus and was traversed. The exam was otherwise without abnormality. Impression: - Stricture at the anus. Able to complete procedure with ease. THis was the source of rectal bleeding. - The examination was otherwise normal. - No specimens collected. Recommendation:- Repeat colonoscopy in 5 years for surveillance given history of polyps. - Return to primary care physician as previously scheduled. - Discharge patient to home. Hospital Course (1) Rectal bleed: History of anal fistula with fistulotomy done on 2016 Last Colonoscopy in 2017 - Anal stricture found on digital rectal exam. The entire examined colon is normal. INR on admission 2 and hgb above 13 Receive IV vitamin K in the ER Was evaluated by GI Had colonoscopy which did not show active bleed. Findings as above Rectal bleed thought to be due to patient's chronic anal stricture Rectal bleeding resolved Patient discharged home To continue home warfarin and plaviz Valvular heart disease s/p mitral valve repair/mitral valve ring04/2014 Last echo on 06/28 showed prior mitral valve repair Stable Chronic CHF Last ECHO on 06/28 showed left ventricle is borderline dilated. Moderate diffuse left ventricular hypokinesis. LV with ejection function 30 to 34%. CXR showed cardiomegaly with pulmonary vascular congestion and interstitial coarsening suggestive of pulmonary edema. Currently euvolemic Continue home diuretcis CAD s/p BMS Continue plavix CKD stage 4 Creatinine 1.5 on admission, at baseline Cr is 1.22 todady Hyperlipidemia Continue Atorvastatin Uncontrolled Type 2 Diabetes Hba1c 7.8 Continue home antidiabetics Ischemic cardiomyopathy Status post single-chamber prophylactic defibrillator, 04/14/2015.[employer]tr[employer] Continue Entresto, spironolactone, Imdur Total Time Total Time Spent Total Time Spent (In Minutes): 45 Total Time Includes: Examination of the Patient, Discharge Planning and Medication Reconciliation Discharge Plan Discharge Items Patient Disposition: Home - Self-Care Reason For Visit: Rectal bleeding Discharge Diagnosis: Rectal bleeding Condition on Discharge: Good Activity: Resume your previous activity Non-emergency contact: Primary Care Provider Call non-emergency contact if: you have any medication questions and your symptoms worsen Follow-up/Referrals: Umer Nur MD [Primary Care Provider] - (Date & Time 11/17/2021 11:20 AM Provider Una Oden MD Department Family Practice [facility] ) Diet: Carb Consistent or DM2 and Heart Healthy Addtl Attending Provider Instructions: Mr Holcomb. You came to the hospital due to rectal bleeding. You were extensively evaluated and had a colonoscopy which did not show active bleeding. Rectal bleeding thought to be related to your anal stricture. Your bleeding resolved. Please continue to take your medications as prescribed. Please follow up with your Primary Doctor It was a pleasure taking care of you. Pending Studies at Discharge: No Stand-Alone Forms: My [facility], Smoking Cessation Medications and DC Order Prescriptions: Continued atorvastatin 40 mg Tablet 40 mg PO PM metoprolol succinate 50 mg Tablet Extended Release 24 Hr See Rx Instructions .ROUTE .COMPLEX Rx Instructions: 50 mg orally; TAKES 75 MG QAM, THEN 50 MG QPM. isosorbide mononitrate 30 mg Tablet Extended Release 24 Hr 60 mg PO QAM clopidogrel 75 mg Tablet 75 mg PO QAM spironolactone 25 mg Tablet 25 mg PO QAM warfarin 5 mg Tablet 5 mg PO QAM nitroglycerin [Nitrostat] 0.4 mg Tablet, Sublingual 0.4 mg sublingual UD PRN (Reason: Angina) fluticasone propionate [Flonase Allergy Relief] 50 mcg/actuation [place],Suspension 2 spray INTRANASAL DAILY PRN (Reason: Allergy Symptoms) magnesium oxide 400 mg magnesium Tablet 400 mg PO BID Entresto 49-51 mg Tablet 1 tab PO BID tramadol 50 mg Tablet 100 mg PO Q6H PRN (Reason: Pain) amitriptyline 10 mg Tablet 10 mg PO HS metformin 500 mg Tablet Extended Release 24 Hr 1,000 mg PO QAM pantoprazole 20 mg Tablet,Delayed Release (Dr/Ec) 20 mg PO DAILY furosemide 20 mg Tablet 20 mg PO QAM Rx Instructions: take an extra tablet,as needed, for edema or sob empagliflozin 10 mg Tablet 10 mg PO DAILY meclizine 12.5 mg tablet 12.5 mg PO TID PRN (Reason: dizziness) Qty: 20 0RF ondansetron 4 mg tablet,disintegrating 4 mg PO Q8H PRN (Reason: nausea and vomiting) Qty: 30 0RF Discharge Orders: Discharge Order (Routine); Ordered 11/10/21 Ordered By: Mary Anne Carranza Admission Data Admit Date/Time: 11/08/21 18:04 Attending Provider: Mary Anne Carranza I. Admit Provider: Denilson Mcgregor Primary Care Provider: Umer Nur Other Providers: Denilson Mcgregor ; Shirley Erazo ; Oliver Up ; Jason Rothman ; Facundo Jerez ; Rene Quinteros ; SherrieJe beltran ; Ryan De Anda ; Janet Abad ; Francy Lake ; Keysha Espinosa ; Ezekiel Lopez Other Interventions: Discharge Summary Assessment (RN) Last Done: 11/10/21 14:21
== END 2021-11-10 14:51 | disposition home or self-care (01) ==
LOC: ED 14:26 → EDINP 14:26 → SUATTDRO 18:04 → EDINP 21:15 → 2W 11-09 11:55

== ENCOUNTER 2025-01-31 14:59 | Inpatient (IN) ==
--- NOTE | 2025-01-31 15:29 | Emergency Department Note ---
Impression & Plan Dizziness, Hypoxia, CKD (chronic kidney disease) ED Provider Note NAME: DEBORAH HARLEY AGE: 84 SEX: M : 1940 ARRIVES VIA: Walk-In INFORMANT: Patient ED PROVIDER(S): Ryan Nicole DO CHIEF COMPLAINT: Dizzy HPI: Patient is an 84-year-old male with a past medical history of diabetes, CHF, heart failure, hypertension, SVT and CAD who presents to the ER for dizziness. Patient notes that started around 3 AM. He is no longer able to walk without holding on as he feels very unsteady. If he stays still this does not improve but still feels off balance. Denies any headache or change or loss of vision. No chest pain or shortness of breath. No nausea, vomiting or diarrhea. No dysuria, urgency or frequency. No other exacerbating or remitting factors. ADDITIONAL HISTORY OBTAINED: Per HPI Chronic Medical/Social Conditions Affecting Care: Per HPI PAST MEDICAL HISTORY:See Below PAST SURGICAL HISTORY:See Below FAMILY HISTORY:See Below SOCIAL HISTORY:See Below HOME MEDICATIONS:See Below ALLERGIES:See Below VITALS:See Below PHYSICAL EXAMINATION: GENERAL: Sitting up in bed, alert, well appearing, well nourished, no distress, non-toxic EYE EXAM: normal conjunctiva. PERRL and EOM's grossly intact. OROPHARYNX: no exudate, no erythema, lips, buccal mucosa, and tongue normal and mucous membranes are moist NECK: supple, no nuchal rigidity, no adenopathy, non-tender LUNGS: Clear to auscultation. Normal chest wall mechanics HEART: no murmurs, S1 normal and S2 normal ABDOMEN: abdomen soft, non-tender, normo-active bowel sounds, no masses, no rebound or guarding. BACK: Back is symmetrical on inspection and there is no deformity, no midline tenderness, no CVA tenderness. SKIN: no rashes and no bruising UPPER EXTREMITIES: upper extremities are grossly normal. LOWER EXTREMITIES: No pitting edema. NEURO EXAM: Normal sensorium, cranial nerves II-XII intact, normal speech, no weakness of arms, no weakness of legs. No drift. Finger to nose intact. Gross sensation intact. MEDICAL DECISION MAKING: Patient is an 84-year-old male who presents to the ER for dizziness. IV was established and blood work was obtained. He was found to be hypoxic when sitting in bed. He is placed on 2 L nasal cannula. He was recently started on carbamazepine. Labs showed no significant leukocytosis or anemia. INR was therapeutic at 2.4. BMP with slightly elevated BUN at 34. Creatinine 1.5 consistent with previous. LFTs bilirubin was unremarkable. Troponin was negative. EKG nondiagnostic. CT as well as angios of the head and neck were negative for any acute pathology. Patient was given fluids, Zofran and Antivert. Discussed case with the hospitalist for further evaluation management and treatment. Chest x-ray was unremarkable. I do favor the carbamazepine is likely causing his symptoms making him groggy and dizzy but when to bring him in for complete workup. Consults/Care Managements Discussions: Per [facility] Triage Nursing notes reviewed. Limited review of prior medical records performed Vital Signs: reviewed and remarkable for no significant abnormalities Differential diagnosis: Differential diagnosis includes etiologies such as benign positional vertigo, dehydration, hypovolemia, anemia, tumor, infection, hypoglycemia, electrolyte abnormalities, cardiac sources, intracerebral event, toxicologic, neurological, as well as others were entertained. ER treatment provided: See below Diagnostics interpreted by me include EKG and cardiac monitoring as listed below: -Cardiac Monitoring: An order was placed for continuous cardiac monitoring. The monitor shows a rate of 80 with sinus rhythm. -ECG: A-fib rate of 60 Left axis No PVCs QTc 436 -Laboratory studies:Interpreted by me as stated above in MDM and shown below. Imaging studies: Xrays: As interpreted by me: Portable AP upright 1 view of the chest shows ICD in place. CTs show: CT of the head as well as angios of the head and neck are negative. Procedures:none Critical Care: None Past Med/Surg History Problem List CKD (chronic kidney disease) (Acute) Hypoxia (Acute) Dizziness (Acute) Adverse drug reaction Dizziness Trigeminal neuralgia pain (Acute) ICD (implantable cardioverter-defibrillator) in place CAD (coronary artery disease) H/O mitral valve repair Chronic systolic (congestive) heart failure Rectal bleeding (Acute) Coagulopathy (Acute) Rectal bleed Encounter for pre-operative examination GERD (gastroesophageal reflux disease) CHF (congestive heart failure) (Acute) Dyslipidemia Diabetes mellitus, type II Hypertension Spinal stenosis of lumbar region Pulmonary nodules CHF (congestive heart failure) "left ventricular systolic failure" Systolic CHF, acute Mitral valve regurgitation "moderate-severe by echo September 2013" CHF (congestive heart failure) Shortness of breath Respiratory failure, acute (02/11/14) Anemia Gout Anemia Chest pain Contusion of right shoulder Fall due to slipping on ice or snow Hypokalemia Pleural effusion Rotator cuff tear arthropathy of right shoulder S/P mitral valve repair SVT (supraventricular tachycardia) Status post mitral valve annuloplasty Encounter for pre-operative examination CAD (coronary artery disease) (06/23/13) - BMS to ramus intermedius June 2013 - Acute thrombotic occlusion of the ramus with extension to the left anterior descending and left main in the setting of postoperative lumbar decompressive surgery September of 2013, course complicated by cardiogenic shock, acute myocardial infarction, treated with aspiration thrombectomy, and coronary angioplasty. 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 Jerez 80% stenosis large ramus intermedius, 40% PDA, 70% septal branch LAD" x3 or 4 of them per pt Status post coronary artery stent placement "06/23/13 [facility] Dr. Boggs bare metal stent proximal ramus intermedius" H/O mitral valve replacement 2013 [place] [facility] [place] History of "mitral valve repair" per cardio records (Secondary to infarct related mitral insufficiency) Medical History Atrial flutter Transient/post operative per cardio records in the past Recently discovered again incidentally during ECHO Ischemic cardiomyopathy EF 20-25% May 2018 Improved to 30-34% per Dec 2020 ECHO Lung nodule HX Depression Anxiety SOB (shortness of breath) on exertion Gout Spinal stenosis Diabetes mellitus, type 2 diet controlled, no meds/was taken off d/t kidney issues Hearing deficit Hypertension Hyperlipidemia Myocardial Infarction 2013--follows with Dr. Jerez On home oxygen therapy 2L N/C when sleeping Chronic obstructive pulmonary disease Surgical History Status post anal fissurectomy Status post trigger finger release History of bilateral carpal tunnel release History of lumbar spinal fusion x2 History of repair of right rotator cuff History of arthroscopy of left knee History of umbilical hernia repair History of colonoscopy History of esophagogastroduodenoscopy (EGD) History of tooth extraction all teeth removed History of cardiac radiofrequency ablation ICD (implantable cardioverter-defibrillator) in place 04/14/15@ [facility]--[employer] Family History Mother Family history of diabetes mellitus Sister Family history of diabetes mellitus Brother Family history of diabetes mellitus Family history of stomach cancer Other No family history of adverse response to anesthesia Social History Smoking Status: Never smoker Tobacco Type: Cigarettes Second Hand Exposure: No; Do You Dip or Chew Tobacco: No; Hx Alcohol Use: Yes Alcohol type: beer and wine Hx Substance Use: No Preferred Language: German Communication Ability: Effective Digital Sales Assistant Required: No Beliefs That Will Affect Care: None Current Living Situation: Spouse current occupational status: retired Feels Safe at Home: Yes Assistive Devices: Cane Allergies Allergies Allergy/AdvReac Type Severity Reaction Status Date / Time ciprofloxacin Allergy Severe ANAPHYLAXIS Verified 11/10/21 10:28 doxycycline Allergy Severe ANAPHYLAXIS Verified 11/10/21 10:28 Sulfa (Sulfonamide Allergy Severe Anaphylaxis Verified 11/10/21 10:28 Antibiotics) Home Meds Home Medications Medication Instructions Recorded Confirmed atorvastatin 40 mg tablet 40 mg PO PM 12/10/18 01/31/25 clopidogrel 75 mg tablet 75 mg PO QAM 12/10/18 01/31/25 fluticasone propionate 50 2 spray intranasal DAILY PRN 12/10/18 01/31/25 mcg/actuation nasal Allergy Symptoms spray,suspension (Flonase Allergy Relief) isosorbide mononitrate 30 mg 60 mg PO QAM 12/10/18 01/31/25 tablet,extended release 24 hr magnesium oxide 400 mg PO DAILY 12/10/18 01/31/25 metoprolol succinate 50 mg See Rx Instructions .Route .COMPLEX 12/10/18 01/31/25 tablet,extended release 24 hr nitroglycerin 0.4 mg sublingual 0.4 mg sublingual UD PRN Angina 12/10/18 01/31/25 tablet (Nitrostat) spironolactone 25 mg tablet 25 mg PO QAM 12/10/18 01/31/25 warfarin 5 mg tablet 5 mg PO QAM 12/10/18 01/31/25 sacubitril 49 mg-valsartan 51 mg 1 tab PO BID 02/11/21 01/31/25 tablet (Entresto) tramadol 50 mg tablet 100 mg PO Q6H PRN Pain 02/11/21 01/31/25 empagliflozin 10 mg tablet 10 mg PO DAILY 08/26/21 01/31/25 furosemide 20 mg tablet 20 mg PO QAM 08/26/21 01/31/25 pantoprazole 20 mg tablet,delayed 20 mg PO DAILY 08/26/21 01/31/25 release metformin 500 mg tablet,extended 500 mg PO QAM 11/08/21 01/31/25 release 24 hr gabapentin 100 mg capsule 100 mg PO TID 01/16/24 01/31/25 Previous Rx's Medication Instructions Recorded meclizine 12.5 mg tablet 12.5 mg PO TID PRN dizziness #20 08/26/21 tabs ondansetron 4 mg disintegrating 4 mg PO Q8H PRN nausea and 08/26/21 tablet vomiting #30 tabs carbamazepine 200 mg tablet 200 mg PO BID 14 days #28 tabs 01/29/25 Results & Data (ED) Vital Signs Vital Signs - 24 hr 01/31/25 15:10 01/31/25 15:22 01/31/25 15:30 Temperature 36.6 C Temperature Source Temporal Artery Scan Pulse Rate 76 75 72 Pulse Rate [Apical] Pulse Rate from SpO2 Sensor 72 Pulse Rhythm Respiratory Rate 18 27 H Blood Pressure 111/71 127/79 Blood Pressure [Right Arm] Blood Pressure Mean 84 89 Blood Pressure Mean [Right Arm] Pulse Oximetry 95 92 Oxygen Delivery Method Room Air Sepsis Recent Fever Within 48 Hours No Sepsis New/Unexplained Change in Mental Status N/A Sepsis Action Taken by Nursing No Action Required Oxygen Flow Rate - Titration Pulse Oximetry Post Tiitration 01/31/25 15:31 01/31/25 15:54 01/31/25 16:30 Temperature Temperature Source Pulse Rate 75 79 Pulse Rate [Apical] Pulse Rate from SpO2 Sensor 80 Pulse Rhythm Regular Respiratory Rate 18 21 Blood Pressure 112/69 Blood Pressure [Right Arm] Blood Pressure Mean 73 Blood Pressure Mean [Right Arm] Pulse Oximetry 95 87 L 96 Oxygen Delivery Method Room Air Room Air Sepsis Recent Fever Within 48 Hours Sepsis New/Unexplained Change in Mental Status Sepsis Action Taken by Nursing Oxygen Flow Rate - Titration 2 Pulse Oximetry Post Tiitration 94 01/31/25 17:00 01/31/25 17:00 01/31/25 17:21 Temperature Temperature Source Pulse Rate 59 L 62 Pulse Rate [Apical] Pulse Rate from SpO2 Sensor 58 L Pulse Rhythm Respiratory Rate 16 16 Blood Pressure 86/55 L 86/55 L 106/56 L Blood Pressure [Right Arm] Blood Pressure Mean 65 61 72 Blood Pressure Mean [Right Arm] Pulse Oximetry 99 Oxygen Delivery Method Sepsis Recent Fever Within 48 Hours Sepsis New/Unexplained Change in Mental Status Sepsis Action Taken by Nursing Oxygen Flow Rate - Titration Pulse Oximetry Post Tiitration 01/31/25 17:56 Temperature Temperature Source Pulse Rate Pulse Rate [Apical] 66 Pulse Rate from SpO2 Sensor Pulse Rhythm Respiratory Rate 18 Blood Pressure Blood Pressure [Right Arm] 98/65 L Blood Pressure Mean Blood Pressure Mean [Right Arm] 76 Pulse Oximetry 94 Oxygen Delivery Method Room Air Sepsis Recent Fever Within 48 Hours Sepsis New/Unexplained Change in Mental Status Sepsis Action Taken by Nursing Oxygen Flow Rate - Titration Pulse Oximetry Post Tiitration Laboratory Data 01/31/25 15:31 01/31/25 15:31 Lab Results 01/31/25 01/31/25 Range/Units 15:31 15:36 WBC 6.47 (4.8-10.8) K/ul RBC 4.81 (4.70-6.10) M/uL Hgb 14.3 (14.0-18.0) g/dl POC Hgb 15.3 (14.0-18.0) g/dl Hct 44.0 (42.0-52.0) % POC Hct 45 (42-52) % MCV 91.5 (80.0-100.0) fL MCH 29.7 (25.0-34.0) pg MCHC 32.5 (32.0-36.0) g/dL RDW Std Deviation 52.2 H (36.4-46.3) fL RDW Coeff of Chaz 15.5 H (11.5-14.5) % Plt Count 161 (130-400) K/uL MPV 11.5 (9.4-12.4) fL Immature Gran % (Auto) 0.3 % Neut % (Auto) 79.8 % Lymph % (Auto) 11.9 % [place] % (Auto) 6.3 % Eos % (Auto) 1.4 % Baso % (Auto) 0.3 % Neut # (Auto) 5.16 (1.40-6.50) K/uL Lymph # (Auto) 0.77 L (1.20-3.40) K/uL [place] # (Auto) 0.41 (0.11-0.59) K/uL Eos # (Auto) 0.09 (0.00-0.50) K/uL Baso # (Auto) 0.02 (0.00-0.20) K/uL Immature Gran # (Auto) 0.02 (0.01-0.20) K/uL PT 24.0 H (9.0-12.0) Seconds INR 2.4 H (0.9-1.1) POC Sodium 141 (135-144) mmol/L Sodium 138 (136-145) mmol/L POC Potassium 3.9 (3.3-5.0) mmol/L Potassium 3.9 (3.5-5.1) mmol/L POC Chloride 105 (101-112) mmol/L Chloride 104 (98-107) mmol/L Carbon Dioxide 25 (21-32) mmol/L POC Total CO2 24 (24-31) mmol/L Anion Gap 9 (3-11) POC Anion Gap 16.0 (16-25) mmol/L POC BUN 32 H (7-18) mg/dl BUN 34 H (6-23) mg/dl Creatinine 1.50 H (0.6-1.4) mg/dl POC Creatinine 1.6 H (0.6-1.3) mg/dl Est Cr Clr Drug Dosing Not Reportable eGFR 46.19 BUN/Creatinine Ratio 22.7 H (10-20) Glucose 206 H (70-99(Fasting)) mg/dl POC Glucose (other) 201 H (70-99) mg/dl Calcium 9.8 (8.6-10.3) mg/dl POC Ioniz Calcium Bill 1.19 (1.12-1.32) mmol/l Total Bilirubin 0.7 (0.2-1.0) mg/dl AST 19 (13-39) U/L ALT 14 (7-52) U/L Alkaline Phosphatase 62 (34-104) U/L Troponin I High Sens 6.1 (0-20) pg/ml Total Protein 7.1 (6.0-8.3) gm/dl Albumin 4.2 (3.4-5.0) gm/dl Globulin 2.9 (2.5-4.0) gm/dl Albumin/Globulin Ratio 1.4 (0.9-2) Lipase 18 (11-82) U/L Administered Medications Atorvastatin Calcium (Atorvastatin 40 Mg Tab) 40 mg PO PM ZANDER Stop: 03/02/25 20:59 Last Admin: 01/31/25 21:23 Dose: 40 mg Documented By: KENDELLB Gabapentin (Gabapentin 100 Mg Cap) 100 mg PO TID ZANDER Stop: 03/02/25 20:59 Last Admin: 01/31/25 21:23 Dose: 100 mg Documented By: GIOVANA Sodium Chloride (Nss) 1,000 mls @ 125 mls/hr IV .Q8H ZANDER Stop: 02/01/25 13:14 Last Admin: 01/31/25 21:23 Dose: 125 mls/hr Documented By: GIOVANA Insulin Aspart (Insulin Aspart Per Unit Charge) 0 units SC ACHS ZANDER Stop: 03/02/25 20:59 Last Admin: 01/31/25 21:23 Dose: 1 units Documented By: GIOVANA Co-signed By: alt Metoprolol Succinate (Metoprolol Succ 50mg Ext Rel Tab) 50 mg PO QPM ZANDER Stop: 03/02/25 20:59 Last Admin: 01/31/25 21:13 Dose: Not Given Documented By: GIOVANA Sacubitril/Valsartan (Valsartan/Sacubitril 51/49 Mg Tab) 1 tab PO BID ZANDER Stop: 03/02/25 20:59 Last Admin: 01/31/25 21:23 Dose: 1 tab Documented By: GIOVANA Discontinued Medications Sodium Chloride (Nss) 500 mls @ 999 mls/hr IV .Q31M ONE Stop: 01/31/25 15:53 Last Infusion: 01/31/25 16:42 Dose: Infused Documented By: Admin: 01/31/25 15:44 Dose: 999 mls/hr Documented By: IRMA Sodium Chloride (Nss) 1,000 mls @ 999 mls/hr IV .Q1H1M ONE Stop: 01/31/25 18:24 Last Infusion: 01/31/25 20:59 Dose: Infused Documented By: Admin: 01/31/25 19:00 Dose: 999 mls/hr Documented By: GURINDER Ioversol (Optiray 320 125ml) 119 ml IV ONCE ONE Stop: 01/31/25 16:15 Last Admin: 01/31/25 16:14 Dose: 119 ml Documented By: JORGE Meclizine HCl (Meclizine Hcl 25 Mg Tab) 25 mg PO NOW STA Stop: 01/31/25 15:24 Last Admin: 01/31/25 15:45 Dose: 25 mg Documented By: IRMA Ondansetron HCl (Ondansetron Inj 2 Mg/Ml 2 Ml Vial) 4 mg IV NOW STA Stop: 01/31/25 15:24 Last Admin: 01/31/25 15:44 Dose: 4 mg Documented By: IRMA Imaging Data Radiologist's Impression: Chest X-Ray 01/31/25 15:23 REASON FOR EXAM: The patient is old presenting with a history of chest pain. HISTORY: Chest pain EXAM: Chest one view portable Comparison: 01/26/2024 FINDINGS: Left-sided pacemaker is again noted. Cardiac size remains normal. Linear fibrosis stable in the right midlung. Otherwise no active infiltrate or edema is seen. IMPRESSION: Stable appearance without acute disease seen at this time. Electronically signed by Oliver Marroquin 01-31-2025 6:06 PM Head CTA 01/31/25 15:23 Exam: CT angiogram had without and with contrast. Reason for exam: Dizziness. Previous studies: 01/16/2024. FINDINGS: Unenhanced images of the head show marked diffuse atrophy and lucency of the deep white matter. No acute intracranial mass, hemorrhage or edema is seen. No extra-axial blood or fluid collection or midline shift is noted. No acute process of the bony calvarium is seen. Mastoids and visualized sinuses remain clear. Intact flow is seen in the distal internal carotid arteries with mild plaquing but no significant intracranial stenosis or acute thrombus identified. Intact flow is seen in the [place] bilaterally again without major stenosis or occlusion. The distal left vertebral artery is quite diminutive but remains patent. Flow in the basilar and posterior circulation appears intact. No aneurysm or hemorrhage is identified. No significant abnormal parenchymal enhancement is identified. IMPRESSION: 1. Negative for acute intracranial process. 2. Diffuse atrophy and chronic ischemic angiopathy deep white matter. 2. Mild atherosclerotic plaquing distal internal carotid arteries without major intracranial stenosis, occlusion, thrombus or aneurysm found at this time. Electronically signed by Oliver Marroquin 01-31-2025 6:58 PM Neck CTA 01/31/25 15:23 Exam: CT angiogram of the neck. Reason for exam: Dizziness Previous studies: 01/16/2024 FINDINGS: No significant stenosis is seen with typical 3 vessel origin at the aortic arch. Right carotid bifurcation shows scattered plaquing with a maximum 30% stenosis at the origin of the right internal carotid artery and no significant right external carotid artery stenosis. The left carotid bifurcation shows a moderately large amount of atherosclerotic plaque with mixed hard and soft components with a high-grade 90% stenosis at the origin of the left internal carotid artery. No significant left external carotid artery stenosis is seen at this time. Vertebral arteries remain patent with the right being moderately dominant in size to the left. The distal left vertebral artery is quite diminutive. IMPRESSION: 1. 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 2. Mild plaque without significant stenosis in the right carotid system. 3. Intact vertebral flow at the distal left vertebral artery being markedly diminutive but patent. Electronically signed by Oliver Marroquin 01-31-2025 6:52 PM Discharge Plan Visit Data Chief Complaint: Dizziness Stated Complaint: FALL, DIZZINESS, NAUSEA ED Provider: Ryan Nicole Discharge Problem: Dizziness, Hypoxia, CKD (chronic kidney disease) Patient Disposition: Admitted As Inpatient Condition: Fair Discharge Instructions Interventions: ED Discharge Assessment Last Done: 01/31/25 19:48 Discharge Problem: CKD (chronic kidney disease) Qualifiers: Chronic kidney disease stage: unspecified stage Qualified Code(s): N18.9 - Chronic kidney disease, unspecified
[2025-01-31] MEDS: SODIUM CHLORIDE 0.9% 500 ML IV ONE (15:44)
[2025-01-31] MEDS: ONDANSETRON INJ 2 MG/ML 2 ML VIAL IV STA (15:44)
[2025-01-31] MEDS: MECLIZINE HCL 25 MG TAB PO STA (15:45)
[2025-01-31 16:01] LABS: Hematocrit (blood only) 44.0 % (42.0-52.0); Hemoglobin 14.3 g/dl (14.0-18.0); Immature Granulocytes # (auto) 0.02 K/uL (0.01-0.20); Immature Granulocytes % (auto) 0.3 %; Mean Corpuscular Hemoglobin 29.7 pg (25.0-34.0); Mean Corpuscular Volume 91.5 fL (80.0-100.0); Platelet Count 161 K/uL (130-400); RDW Standard Deviation 52.2 fL (36.4-46.3); Red Blood Count 4.81 M/uL (4.70-6.10); White Blood Count 6.47 K/ul (4.8-10.8)
[2025-01-31] MEDS: OPTIRAY 320 125ml IV ONE (16:14)
[2025-01-31 16:18] LABS: Alanine Aminotransferase 14 U/L (7-52); Albumin Globulin Ratio 1.4 (0.9-2); Albumin Level 4.2 gm/dl (3.4-5.0); Alkaline Phosphatase 62 U/L (34-104); Anion Gap 9 (3-11); Bilirubin,Total 0.7 mg/dl (0.2-1.0); Blood Urea Nitrogen 34 mg/dl (6-23); Calcium 9.8 mg/dl (8.6-10.3); Carbon Dioxide 25 mmol/L (21-32); Chloride 104 mmol/L (98-107); Globulin 2.9 gm/dl (2.5-4.0); Glucose 206 mg/dl (70-99(Fasting)); Lipase 18 U/L (11-82); Potassium 3.9 mmol/L (3.5-5.1); Sodium 138 mmol/L (136-145); Total Protein 7.1 gm/dl (6.0-8.3)
[2025-01-31 16:39] LABS: INR 2.4 (0.9-1.1); Prothrombin Time 24.0 Seconds (9.0-12.0)
--- NOTE | 2025-01-31 16:57 | Electrocardiogram Report ---
Test Reason : Blood Pressure : */* mmHG Vent. Rate : 60 BPM Atrial Rate : * BPM P-R Int : * ms QRS Dur : 126 ms QT Int : 436 ms P-R-T Axes : * -22 117 degrees QTcB Int : 436 ms Sinus rhythm with Mob[place] 1 AV block Non-specific intra-ventricular conduction block Minimal voltage criteria for LVH, may be normal variant Nonspecific T wave abnormality Abnormal ECG When compared with ECG of 26-Jan-2024 18:51, Nonspecific T wave abnormality no longer evident in Inferior leads T wave inversion no longer evident in Lateral leads Confirmed by Andrea Partida ([id number]) on 01/31/2025 4:57:29 PM Referred By: Confirmed By: Andrea Partida
--- NOTE | 2025-01-31 17:44 | History & Physical Report ---
Date of Service January 31, 2025 Assessment & Plan (1) Trigeminal neuralgia pain: (2) Dizziness: (3) Adverse drug reaction: Plan: Adverse drug reaction Dizziness/ambulatory dysfunction Likely due to carbamazepine. DD: Carotid stenosis contributing as well Patient presented with significant nausea, dizziness, ambulatory dysfunction after initiating carbamazepine --CTA Head:1. Negative for acute intracranial process. Diffuse atrophy and chronic ischemic angiopathy deep white matter. Mild atherosclerotic plaquing distal internal carotid arteries without major intracranial stenosis, occlusion, thrombus or aneurysm found at this time. --Neck CTA:. 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 Mild plaque without significant stenosis in the right carotid system. Intact vertebral flow at the distal left vertebral artery being markedly diminutive but patent. --Check orthostatics, echo -- Cannot obtain MRI due to ICD incompatible --Carbamazepine discontinued -- Monitor for any arrhythmias -- Neurology consulted -- Consider vascular surgery evaluation inpatient Vs outpatient Continue Plavix, statin PT OT, fall precaution Gentle IV fluids given low blood pressure on presentation Trigeminal neuralgia Hold carbamazepine as above Continue gabapentin Await neurology input DM Type II: Update HbA1c Hold p.o. medication Continue insulin while hospitalized Monitor blood glucose levels Hypertension Blood pressure low Hold diuretics as clinically mildly dehydrated Continue Entresto, metoprolol with holding parameters May need to hold antihypertensives if hypotension persists Hyperlipidemia Continue statin COPD--no signs of exacerbation Nocturnal hypoxia Prior tobacco use Not on any maintenance inhalers Continue supplemental oxygen at bedtime Chronic HFrEF Ischemic cardiomyopathy S/P ICD Continue Entresto, metoprolol, isosorbide, empagliflozin Resume diuretics as able Monitor volume status Coronary artery disease Mitral valve repair Continue Plavix, statin CKD stage III Creatinine at baseline Monitor renal function H/O atrial flutter Continue metoprolol Continue Coumadin for anticoagulation Monitor INR Other chronic conditions Perianal fistula s/p fistula ostomy Lumbar spinal stenosis DVT Px: Coumadin Code Status Full Code Disposition PT OT prior to discharge I personally interviewed and examined the patient at bedside. I have reviewed blood work, imaging studies, EKG, old records. I spent a total [id number] coordinating, documenting, and providing care for this patient. History of Present Illness Chief Complaint: Dizziness Primary Care Provider: Umer Nur MD Patient is a 84-year-old male with history of diabetes mellitus, hypertension, hyperlipidemia, COPD, nocturnal hypoxia, systolic heart failure, coronary artery disease, mitral valve repair, ischemic cardiomyopathy S/P ICD, CKD stage III, perianal fistula s/p fistula ostomy, lumbar spinal stenosis, atrial flutter on chronic anticoagulation with Coumadin, trigeminal neuralgia and other medical problems presents with history of dizziness, nausea, ambulatory dysfunction. Patient states that he has been having intermittent left facial pain especially around his eye over the past 1 year for which he has been evaluated in the ED 1 week ago and his gabapentin dose was increased to 200 mg [address] head and neck were unremarkable at the time. Patient also had been seen by PCP prior to ED visit and was prescribed prednisone tapering course which helped with his symptoms. Patient had persistent persistent symptoms despite increased gabapentin and was evaluated by ED again 2 days ago and was prescribed Carbamazepine. After taking Carbamazepine, patient started to have significant nausea associated with dizziness and balance issues. He admits to have a near fall yesterday but family was able to catch him prior to falling on the ground. He describes dizziness as " room spinning sensation" associated with nausea and has been using cane to ambulate at home which was unusual for him. His left patient with pain is currently controlled. Denies any history of chest pain, dyspnea, cough, fever, chills, head trauma, syncope, headache, focal weakness, change in vision, nausea, vomiting, abdominal pain, dysuria, hematuria. Allergies Allergy/AdvReac Type Severity Reaction Status Date / Time ciprofloxacin Allergy Severe ANAPHYLAXIS Verified 11/10/21 10:28 doxycycline Allergy Severe ANAPHYLAXIS Verified 11/10/21 10:28 Sulfa (Sulfonamide Allergy Severe Anaphylaxis Verified 11/10/21 10:28 Antibiotics) Home Medications Medication Instructions Recorded Confirmed Type atorvastatin 40 mg tablet 40 mg PO PM 12/10/18 01/31/25 History clopidogrel 75 mg tablet 75 mg PO QAM 12/10/18 01/31/25 History fluticasone propionate 50 2 spray intranasal DAILY PRN 12/10/18 01/31/25 History mcg/actuation nasal Allergy Symptoms spray,suspension (Flonase Allergy Relief) isosorbide mononitrate 30 mg 60 mg PO QAM 12/10/18 01/31/25 History tablet,extended release 24 hr magnesium oxide 400 mg PO DAILY 12/10/18 01/31/25 History metoprolol succinate 50 mg See Rx Instructions .Route .COMPLEX 12/10/18 01/31/25 History tablet,extended release 24 hr nitroglycerin 0.4 mg sublingual 0.4 mg sublingual UD PRN Angina 12/10/18 01/31/25 History tablet (Nitrostat) spironolactone 25 mg tablet 25 mg PO QAM 12/10/18 01/31/25 History warfarin 5 mg tablet 5 mg PO QAM 12/10/18 01/31/25 History sacubitril 49 mg-valsartan 51 mg 1 tab PO BID 02/11/21 01/31/25 History tablet (Entresto) tramadol 50 mg tablet 100 mg PO Q6H PRN Pain 02/11/21 01/31/25 History empagliflozin 10 mg tablet 10 mg PO DAILY 08/26/21 01/31/25 History furosemide 20 mg tablet 20 mg PO QAM 08/26/21 01/31/25 History meclizine 12.5 mg tablet 12.5 mg PO TID PRN dizziness #20 08/26/21 01/31/25 Rx tabs ondansetron 4 mg disintegrating 4 mg PO Q8H PRN nausea and 08/26/21 01/31/25 Rx tablet vomiting #30 tabs pantoprazole 20 mg tablet,delayed 20 mg PO DAILY 08/26/21 01/31/25 History release metformin 500 mg tablet,extended 500 mg PO QAM 11/08/21 01/31/25 History release 24 hr gabapentin 100 mg capsule 100 mg PO TID 01/16/24 01/31/25 History carbamazepine 200 mg tablet 200 mg PO BID 14 days #28 tabs 01/29/25 01/31/25 Rx Past Med/Surg History Problem List Adverse drug reaction Dizziness Trigeminal neuralgia pain (Acute) ICD (implantable cardioverter-defibrillator) in place CAD (coronary artery disease) H/O mitral valve repair Chronic systolic (congestive) heart failure Rectal bleeding (Acute) Coagulopathy (Acute) Rectal bleed Encounter for pre-operative examination GERD (gastroesophageal reflux disease) CHF (congestive heart failure) (Acute) Dyslipidemia Diabetes mellitus, type II Hypertension Spinal stenosis of lumbar region Pulmonary nodules CHF (congestive heart failure) "left ventricular systolic failure" Systolic CHF, acute Mitral valve regurgitation "moderate-severe by echo September 2013" CHF (congestive heart failure) Shortness of breath Respiratory failure, acute (02/11/14) Anemia Gout Anemia Chest pain Contusion of right shoulder Fall due to slipping on ice or snow Hypokalemia Pleural effusion Rotator cuff tear arthropathy of right shoulder S/P mitral valve repair SVT (supraventricular tachycardia) Status post mitral valve annuloplasty Encounter for pre-operative examination CAD (coronary artery disease) (06/23/13) - BMS to ramus intermedius June 2013 - Acute thrombotic occlusion of the ramus with extension to the left anterior descending and left main in the setting of postoperative lumbar decompressive surgery September of 2013, course complicated by cardiogenic shock, acute myocardial infarction, treated with aspiration thrombectomy, and coronary angioplasty. 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 Jerez 80% stenosis large ramus intermedius, 40% PDA, 70% septal branch LAD" x3 or 4 of them per pt Status post coronary artery stent placement "06/23/[address] [facility] [address] Boggs bare metal stent proximal ramus intermedius" H/O mitral valve replacement 2013 @ [facility] [place] History of "mitral valve repair" per cardio records (Secondary to infarct related mitral insufficiency) Medical History Atrial flutter Transient/post operative per cardio records in the past Recently discovered again incidentally during ECHO Ischemic cardiomyopathy EF 20-25% May 2018 Improved to 30-34% per Dec 2020 ECHO Lung nodule HX Depression Anxiety SOB (shortness of breath) on exertion Gout Spinal stenosis Diabetes mellitus, type 2 diet controlled, no meds/was taken off d/t kidney issues Hearing deficit Hypertension Hyperlipidemia Myocardial Infarction 2013--follows with Dr. Jerez On home oxygen therapy 2L N/C when sleeping Chronic obstructive pulmonary disease Surgical History Status post anal fissurectomy Status post trigger finger release History of bilateral carpal tunnel release History of lumbar spinal fusion x2 History of repair of right rotator cuff History of arthroscopy of left knee History of umbilical hernia repair History of colonoscopy History of esophagogastroduodenoscopy (EGD) History of tooth extraction all teeth removed History of cardiac radiofrequency ablation ICD (implantable cardioverter-defibrillator) in place 04/14/15@ [facility]--[employer] Family History Mother Family history of diabetes mellitus Sister Family history of diabetes mellitus Brother Family history of diabetes mellitus Family history of stomach cancer Other No family history of adverse response to anesthesia Social History Smoking Status: Never smoker Tobacco Type: Cigarettes Second Hand Exposure: No; Do You Dip or Chew Tobacco: No; Hx Alcohol Use: Yes Alcohol type: beer and wine Hx Substance Use: No Preferred Language: Latvian Communication Ability: Effective Clearing Distribution Clerk Required: No Beliefs That Will Affect Care: None Current Living Situation: Spouse current occupational status: retired Feels Safe at Home: Yes Assistive Devices: Cane Review of Systems Review of Systems: All systems reviewed & are unremarkable except as noted in Subjective Physical Exam Physical Exam: Physical Exam: Vitals signs as noted above General Appearance:Moderately built and nourished, no apparent distress Head: normocephalic, Atraumatic Eyes: normal inspection, EOMI Neck: supple, Trachea midline Respiratory/Chest: Normal breath sounds, CTA, No accessory muscle use Cardiovascular: S1, S2, No murmur Abdomen/GI:Soft, Non tender, Bowel sounds present Extremities/Musculoskeletal:normal inspection, no edema Neurologic/Psych:AAOX3, grossly no focal neurological deficits,+ decreased hear ing,+ hearing aids Skin: normal color, warm Results & Data Results & Data Vital Signs (Past 12 Hours) Vital Signs Temp Pulse Resp BP Pulse Ox O2 Del Method 01/31/25 17:21 62 16 106/56 L 01/31/25 17:00 86/55 L 01/31/25 17:00 59 L 16 86/55 L 99 01/31/25 16:30 79 21 112/69 96 01/31/25 15:54 87 L Room Air 01/31/25 15:31 75 18 95 Room Air 01/31/25 15:30 72 27 H 127/79 92 01/31/25 15:22 75 01/31/25 15:10 36.6 C 76 18 111/71 95 Room Air Laboratory Results Short CBC 01/31/25 Range/Units 15:31 WBC 6.47 (4.8-10.8) K/ul Hgb 14.3 (14.0-18.0) g/dl Hct 44.0 (42.0-52.0) % Plt Count 161 (130-400) K/uL BMP 01/31/25 15:31 Sodium 138 Potassium 3.9 Chloride 104 Carbon Dioxide 25 BUN 34 H Creatinine 1.50 H Glucose 206 H Calcium 9.8 Liver Function 01/31/25 Range/Units 15:31 Total Bilirubin 0.7 (0.2-1.0) mg/dl AST 19 (13-39) U/L ALT 14 (7-52) U/L Alkaline Phosphatase 62 (34-104) U/L Albumin 4.2 (3.4-5.0) gm/dl Diagnostic Findings --CTA Head:1. Negative for acute intracranial process. Diffuse atrophy and chronic ischemic angiopathy deep white matter. Mild atherosclerotic plaquing distal internal carotid arteries without major intracranial stenosis, occlusion, thrombus or aneurysm found at this time. --Neck CTA:. 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 Mild plaque without significant stenosis in the right carotid system. Intact vertebral flow at the distal left vertebral artery being markedly diminutive but patent. --CXR:Stable appearance without acute disease seen at this time. Medications Administered Home Medications Medication Instructions Recorded Confirmed atorvastatin 40 mg tablet 40 mg PO PM 12/10/18 01/31/25 clopidogrel 75 mg tablet 75 mg PO QAM 12/10/18 01/31/25 fluticasone propionate 50 2 spray intranasal DAILY PRN 12/10/18 01/31/25 mcg/actuation nasal Allergy Symptoms spray,suspension (Flonase Allergy Relief) isosorbide mononitrate 30 mg 60 mg PO QAM 12/10/18 01/31/25 tablet,extended release 24 hr magnesium oxide 400 mg PO DAILY 12/10/18 01/31/25 metoprolol succinate 50 mg See Rx Instructions .Route .COMPLEX 12/10/18 01/31/25 tablet,extended release 24 hr nitroglycerin 0.4 mg sublingual 0.4 mg sublingual UD PRN Angina 12/10/18 01/31/25 tablet (Nitrostat) spironolactone 25 mg tablet 25 mg PO QAM 12/10/18 01/31/25 warfarin 5 mg tablet 5 mg PO QAM 12/10/18 01/31/25 sacubitril 49 mg-valsartan 51 mg 1 tab PO BID 02/11/21 01/31/25 tablet (Entresto) tramadol 50 mg tablet 100 mg PO Q6H PRN Pain 02/11/21 01/31/25 empagliflozin 10 mg tablet 10 mg PO DAILY 08/26/21 01/31/25 furosemide 20 mg tablet 20 mg PO QAM 08/26/21 01/31/25 pantoprazole 20 mg tablet,delayed 20 mg PO DAILY 08/26/21 01/31/25 release metformin 500 mg tablet,extended 500 mg PO QAM 11/08/21 01/31/25 release 24 hr gabapentin 100 mg capsule 100 mg PO TID 01/16/24 01/31/25 Previous Rx's Medication Instructions Recorded meclizine 12.5 mg tablet 12.5 mg PO TID PRN dizziness #20 08/26/21 tabs ondansetron 4 mg disintegrating 4 mg PO Q8H PRN nausea and 08/26/21 tablet vomiting #30 tabs carbamazepine 200 mg tablet 200 mg PO BID 14 days #28 tabs 01/29/25 ECG Additional Comments: --EKG: Sinus rhythm with Mobitz 1 AV block, nonspecific intraventricular conduction block. Nonspecific T wave abnormality. QTc 436.
--- NOTE | 2025-01-31 18:06 | XRay Report ---
REASON FOR EXAM: The patient is old presenting with a history of chest pain. HISTORY: Chest pain EXAM: Chest one view portable Comparison: 01/26/2024 FINDINGS: Left-sided pacemaker is again noted. Cardiac size remains normal. Linear fibrosis stable in the right midlung. Otherwise no active infiltrate or edema is seen. IMPRESSION: Stable appearance without acute disease seen at this time. Electronically signed by Oliver Marroquin 01-31-2025 6:06 PM
--- NOTE | 2025-01-31 18:52 | CT Scan Report ---
Exam: CT angiogram of the neck. Reason for exam: Dizziness Previous studies: 01/16/2024 FINDINGS: No significant stenosis is seen with typical 3 vessel origin at the aortic arch. Right carotid bifurcation shows scattered plaquing with a maximum 30% stenosis at the origin of the right internal carotid artery and no significant right external carotid artery stenosis. The left carotid bifurcation shows a moderately large amount of atherosclerotic plaque with mixed hard and soft components with a high-grade 90% stenosis at the origin of the left internal carotid artery. No significant left external carotid artery stenosis is seen at this time. Vertebral arteries remain patent with the right being moderately dominant in size to the left. The distal left vertebral artery is quite diminutive. IMPRESSION: 1. 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 2. Mild plaque without significant stenosis in the right carotid system. 3. Intact vertebral flow at the distal left vertebral artery being markedly diminutive but patent. Electronically signed by Oliver Marroquin 01-31-2025 6:52 PM
--- NOTE | 2025-01-31 18:58 | CT Scan Report ---
Exam: CT angiogram had without and with contrast. Reason for exam: Dizziness. Previous studies: 01/16/2024. FINDINGS: Unenhanced images of the head show marked diffuse atrophy and lucency of the deep white matter. No acute intracranial mass, hemorrhage or edema is seen. No extra-axial blood or fluid collection or midline shift is noted. No acute process of the bony calvarium is seen. Mastoids and visualized sinuses remain clear. Intact flow is seen in the distal internal carotid arteries with mild plaquing but no significant intracranial stenosis or acute thrombus identified. Intact flow is seen in the [place] bilaterally again without major stenosis or occlusion. The distal left vertebral artery is quite diminutive but remains patent. Flow in the basilar and posterior circulation appears intact. No aneurysm or hemorrhage is identified. No significant abnormal parenchymal enhancement is identified. IMPRESSION: 1. Negative for acute intracranial process. 2. Diffuse atrophy and chronic ischemic angiopathy deep white matter. 2. Mild atherosclerotic plaquing distal internal carotid arteries without major intracranial stenosis, occlusion, thrombus or aneurysm found at this time. Electronically signed by Oliver Marroquin 01-31-2025 6:58 PM
[2025-01-31] MEDS: SODIUM CHLORIDE 0.9% 1,000 ML IV ONE (19:00)
[2025-01-31] MEDS ORDERED: ONDANSETRON INJ 2 MG/ML 2 ML VIAL IV PRN (20:10)
[2025-01-31] MEDS ORDERED: CARBOHYDRATES FOR HYPOGLYCEMIA PO PRN (20:10)
[2025-01-31] MEDS ORDERED: POLYETHYLENE (MIRALAX) 17 GM PACK PO PRN (20:10)
[2025-01-31] MEDS ORDERED: GLUCAGON FOR INJ 1 MG VIAL SQ PRN (20:10)
[2025-01-31] MEDS ORDERED: GLUCOSE 10 TAB/TUBE PO PRN (20:10)
[2025-01-31] MEDS ORDERED: DEXTROSE 50% 50 ML SYRINGE IV PRN (20:10)
[2025-01-31] MEDS ORDERED: GLUCOSE 40% GEL 15 GM TUBE PO PRN (20:10)
[2025-01-31] MEDS: METOPROLOL SUCC 50MG EXT REL TAB PO SCH (21:13)
[2025-01-31] MEDS: INSULIN ASPART PER UNIT CHARGE SC SCH (21:23)
[2025-01-31] MEDS: VALSARTAN/SACUBITRIL 51/49 MG TAB PO SCH (21:23)
[2025-01-31] MEDS: GABAPENTIN 100 MG CAP PO SCH (21:23)
[2025-01-31] MEDS: SODIUM CHLORIDE 0.9% 1,000 ML IV SCH (21:23)
[2025-01-31] MEDS: ATORVASTATIN 40 MG TAB PO SCH (21:23)
[2025-01-31] MEDS ORDERED: INFLUENZA VACC TS2025-26(65y+)/PF (IIV3) 0.5mL Syr IM ONE (21:59)
[2025-02-01] MEDS: SODIUM CHLORIDE 0.9% 250 ML IV ONE (03:44)
[2025-02-01 07:36] LABS: Hematocrit (blood only) 38.1 % (42.0-52.0); Hemoglobin 12.2 g/dl (14.0-18.0); Mean Corpuscular Hemoglobin 30.0 pg (25.0-34.0); Mean Corpuscular Volume 93.6 fL (80.0-100.0); Platelet Count 126 K/uL (130-400); RDW Standard Deviation 54.3 fL (36.4-46.3); Red Blood Count 4.07 M/uL (4.70-6.10); White Blood Count 5.02 K/ul (4.8-10.8)
[2025-02-01 07:42] LABS: Hemoglobin A1C 7.2 % (4.5-5.6)
[2025-02-01 07:50] LABS: Alanine Aminotransferase 10 U/L (7-52); Albumin Globulin Ratio 1.2 (0.9-2); Albumin Level 3.2 gm/dl (3.4-5.0); Alkaline Phosphatase 45 U/L (34-104); Anion Gap 3 (3-11); Bilirubin,Total 0.5 mg/dl (0.2-1.0); Blood Urea Nitrogen 30 mg/dl (6-23); Calcium 8.4 mg/dl (8.6-10.3); Carbon Dioxide 30 mmol/L (21-32); Chloride 109 mmol/L (98-107); Cholesterol 98 mg/dl (0-200); Creatine Kinase 76 U/L (30-223); Creatinine Clr Calc Pharmacy 44.1 ml/min; Globulin 2.6 gm/dl (2.5-4.0); Glucose 116 mg/dl (70-99(Fasting)); HDL Cholesterol 29 mg/dl; Magnesium 2.1 mg/dl (1.7-2.4); Potassium 4.2 mmol/L (3.5-5.1); Sodium 142 mmol/L (136-145); Total Protein 5.8 gm/dl (6.0-8.3); Triglycerides 125 mg/dl (0-150)
[2025-02-01 07:55] LABS: INR 2.5 (0.9-1.1); Prothrombin Time 25.2 Seconds (9.0-12.0)
[2025-02-01] MEDS: SODIUM CHLORIDE 0.9% 2,000 ML IV ONE (08:28)
[2025-02-01] MEDS: MAGNESIUM OXIDE 400 MG TAB PO SCH (08:39)
[2025-02-01] MEDS: CLOPIDOGREL BISULFATE 75 MG TAB PO SCH (08:41)
[2025-02-01] MEDS: EMPAGLIFLOZIN 10 MG TAB PO SCH (08:41)
[2025-02-01] MEDS: MECLIZINE 12.5 MG TAB PO PRN (08:46)
[2025-02-01] MEDS: METOPROLOL SUCC 25MG EXT REL TAB PO SCH (08:48)
[2025-02-01] MEDS ORDERED: ISOSORBIDE MONO EXTENDED REL 60 MG TABCR PO SCH (09:00)
--- NOTE | 2025-02-01 11:40 | Hospitalist Progress Note ---
Date of Service February 01, 2025 Assessment & Plan (1) Trigeminal neuralgia pain: (2) Dizziness: (3) Adverse drug reaction: Plan: Mr. Holcomb is a 81-year-old female with past medical history of type 2 diabetes, hypertension, dyslipidemia, COPD, acute thrombotic occlusion of the ramus with extension to the left anterior descending and left main in the setting of postoperative lumbar decompressive surgery September of 2013, Ischemic cardiomyopathy/CAD s/p BMS 2013, mitral valve repair, HFrEF s/pStatus post single-chamber prophylactic defibrillator, 04/14/2015.[employer], CKD stage III, perianal fistula with fistulotomy and incision of anal sphincter admitted for dizziness and ambulatory dysfunction. Patient with multiple contributing factors. Patient reports BP often is in low 90s, but at times in 70-80s on current BP regimen Patient also noted to have 90% left ICA stenosis Additionally, patient started on carbamazepine which seemingly precipitated the nausea and vomiting. Currently, nausea seems to have resolved, but patient endorses orthostatic like symptoms (orthostats negative 01/31) #Dizziness #Ambulatory Dysfunction #Left ICA senosis CTA Head:1. Negative for acute intracranial process. Diffuse atrophy and chronic ischemic angiopathy deep white matter. Mild atherosclerotic plaquing distal internal carotid arteries without major intracranial stenosis, occlusion, thrombus or aneurysm found at this time. Neck CTA:. 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 Mild plaque without significant stenosis in the right carotid system. Intact vertebral flow at the distal left vertebral artery being markedly diminutive but patent. 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 valve repair April 2014 #Prior aspiration thrombectomy, STEMI Status post single-chamber prophylactic defibrillator, 04/14/2015.[employer]tr[employer], model Reduce entreso Continue Metoprolol reduce imdur continue jardiance continue lasix tomorrow Monitor volume status continue statin/Plavix continue Tele consider cards consult v op follow #Transient postoperative atrial flutter without recurrence #AV bridgett reentry tachycardia s/p ablation 2015 #Atrial flutter, paroxysmal s/p cardioversion 2020 #Chronic ventricular ectopy monitor on tele continue metoprolol continue Coumadin, INR 2.5 #Chronic renal insufficiency stage III stable CTM #DM Type II: 7.2% HbA1c basal bolus while admitted #Hyperlipidemia Continue statin #COPD--no signs of exacerbation #Nocturnal hypoxia Prior tobacco use Not on any maintenance inhalers Continue supplemental oxygen at bedtime Other chronic conditions Perianal fistula s/p fistula ostomy Lumbar spinal stenosis DVT Px: Coumadin Code Status Full Code Disposition PT OT prior to discharge Admission and Anticipated Discharge Date Admission Date: January 31, 2025 Subjective NAEO reports feeling better---further discussion revealed that patient experiences dizziness more frequently--noting that blood pressures can be in 70s at times. He reports frustration with Cards follow up and hasnt had his medications adjusted in "sometime" States trigeminal neuralgia pain is stable right now--does correlate the nausea and vomiting to the start of the carbamazepine Physical Exam Constitutional: WD/WN, vitals as above Respiratory: normal respiratory effort, lungs clear to auscultation Cardiovascular: RRR, MONICA+ Gastrointestinal (Abdomen): normal bowel sounds, soft, nontender, no hepatosplenomegaly Skin: no rashes, warm and dry Results & Data Results & Data Vital Signs (Past 12 Hours) Vital Signs Temp Pulse Resp BP BP Pulse Ox O2 Del Method 02/01/25 08:44 36.3 C L 72 18 119/72 94 Room Air 02/01/25 05:01 115/69 02/01/25 04:02 36.6 C 51 L 16 93/55 L 96 Room Air 02/01/25 00:09 36.4 C L 61 18 109/66 95 Nasal Cannula O2 Flow Rate 02/01/25 08:44 02/01/25 05:01 02/01/25 04:02 02/01/25 00:09 1 Laboratory Results Short CBC 01/31/25 02/01/25 Range/Units 15:31 07:14 WBC 6.47 5.02 (4.8-10.8) K/ul Hgb 14.3 12.2 L (14.0-18.0) g/dl Hct 44.0 38.1 L (42.0-52.0) % Plt Count 161 126 L (130-400) K/uL BMP 01/31/25 02/01/25 15:31 07:14 Sodium 138 142 Potassium 3.9 4.2 Chloride 104 109 H Carbon Dioxide 25 30 BUN 34 H 30 H Creatinine 1.50 H 1.45 H Glucose 206 H 116 H Calcium 9.8 8.4 L Cardiac Enzymes 02/01/25 Range/Units 07:14 Total Creatine Kinase 76 (30-223) U/L Liver Function 01/31/25 02/01/25 Range/Units 15:31 07:14 Total Bilirubin 0.7 0.5 (0.2-1.0) mg/dl AST 19 15 (13-39) U/L ALT 14 10 (7-52) U/L Alkaline Phosphatase 62 45 (34-104) U/L Albumin 4.2 3.2 L (3.4-5.0) gm/dl Medications Administered Home Medications Medication Instructions Recorded Confirmed Last Taken atorvastatin 40 mg tablet 40 mg PO PM 12/10/18 01/31/25 11/07/21 clopidogrel 75 mg tablet 75 mg PO QAM 12/10/18 01/31/25 11/08/21 fluticasone propionate 50 2 spray intranasal DAILY PRN 12/10/18 01/31/25 Unknown mcg/actuation nasal Allergy Symptoms spray,suspension (Flonase Allergy Relief) isosorbide mononitrate 30 mg 60 mg PO QAM 12/10/18 01/31/25 11/08/21 tablet,extended release 24 hr magnesium oxide 400 mg PO DAILY 12/10/18 01/31/25 11/08/21 08:00 metoprolol succinate 50 mg See Rx Instructions .Route .COMPLEX 12/10/18 01/31/25 11/08/21 08:00 tablet,extended release 24 hr nitroglycerin 0.4 mg sublingual 0.4 mg sublingual UD PRN Angina 12/10/18 01/31/25 Unknown tablet (Nitrostat) spironolactone 25 mg tablet 25 mg PO QAM 12/10/18 01/31/25 11/08/21 warfarin 5 mg tablet 5 mg PO QAM 12/10/18 01/31/25 11/08/21 sacubitril 49 mg-valsartan 51 mg 1 tab PO BID 02/11/21 01/31/25 11/08/21 08:00 tablet (Entresto) tramadol 50 mg tablet 100 mg PO Q6H PRN Pain 02/11/21 01/31/25 Unknown empagliflozin 10 mg tablet 10 mg PO DAILY 08/26/21 01/31/25 11/08/21 furosemide 20 mg tablet 20 mg PO QAM 08/26/21 01/31/25 11/08/21 meclizine 12.5 mg tablet 12.5 mg PO TID PRN dizziness #20 08/26/21 01/31/25 Unknown tabs ondansetron 4 mg disintegrating 4 mg PO Q8H PRN nausea and 08/26/21 01/31/25 Unknown tablet vomiting #30 tabs pantoprazole 20 mg tablet,delayed 20 mg PO DAILY 08/26/21 01/31/25 11/08/21 release metformin 500 mg tablet,extended 500 mg PO QAM 11/08/21 01/31/25 11/08/21 release 24 hr gabapentin 100 mg capsule 100 mg PO TID 01/16/24 01/31/25 Unknown carbamazepine 200 mg tablet 200 mg PO BID 14 days #28 tabs 01/29/25 01/31/25 Unknown Active Medications Generic Name Dose Route Start Last Admin Trade Name Freq PRN Reason Stop Dose Admin Atorvastatin Calcium 40 mg 01/31/25 21:00 01/31/25 21:23 Atorvastatin 40 Mg Tab PO 03/02/25 20:59 40 mg PM ZANDER Administration Clopidogrel Bisulfate 75 mg 02/01/25 09:00 02/01/25 08:41 Clopidogrel Bisulfate 75 Mg Tab PO 03/03/25 08:59 75 mg QAM ZANDER Administration Empagliflozin 10 mg 02/01/25 09:00 02/01/25 08:41 Empagliflozin 10 Mg Tab PO 03/03/25 08:59 10 mg DAILY ZANDER Administration Gabapentin 100 mg 01/31/25 21:00 02/01/25 08:39 Gabapentin 100 Mg Cap PO 03/02/25 20:59 100 mg TID ZANDER Administration Sodium Chloride 1,000 mls @ 125 mls/hr 01/31/25 21:15 02/01/25 05:26 Nss IV 02/01/25 13:14 125 mls/hr .Q8H ZANDER Administration Insulin Aspart 0 units 01/31/25 21:00 02/01/25 08:56 Insulin Aspart Per Unit Charge SC 03/02/25 20:59 3 units ACHS ZANDER Administration Magnesium Oxide 400 mg 02/01/25 09:00 02/01/25 08:39 Magnesium Oxide 400 Mg Tab PO 03/03/25 08:59 400 mg DAILY ZANDER Administration Meclizine HCl 12.5 mg 01/31/25 20:10 02/01/25 08:46 Meclizine 12.5 Mg Tab PO 03/02/25 20:09 12.5 mg TID PRN Administration dizziness Metoprolol Succinate 75 mg 02/01/25 09:00 02/01/25 08:48 Metoprolol Succ 25mg Ext Rel Tab PO 03/03/25 08:59 75 mg QAM ZANDER Administration Metoprolol Succinate 50 mg 01/31/25 21:00 01/31/25 21:13 Metoprolol Succ 50mg Ext Rel Tab PO 03/02/25 20:59 Not Given QPM ZANDER Pantoprazole Sodium 20 mg 02/01/25 09:00 02/01/25 08:39 Pantoprazole 40 Mg Tab PO 03/03/25 08:59 20 mg DAILY ZANDER Administration
--- NOTE | 2025-02-01 11:53 | XCELERA ---
[id number]
[2025-02-01] MEDS: ISOSORBIDE MONO EXTENDED REL 30 MG TABCR PO SCH (14:38)
[2025-02-01] MEDS: VALSARTAN/SACUBITRIL 26/24MG TAB PO SCH (14:38)
[2025-02-01] MEDS: WARFARIN SOD 5 MG TAB PO SCH (18:45)
[2025-02-02 03:28] VITALS: RESP 18
[2025-02-02 07:07] LABS: Hematocrit (blood only) 37.8 % (42.0-52.0); Hemoglobin 12.1 g/dl (14.0-18.0); Mean Corpuscular Hemoglobin 29.8 pg (25.0-34.0); Mean Corpuscular Volume 93.1 fL (80.0-100.0); Platelet Count 119 K/uL (130-400); RDW Standard Deviation 53.8 fL (36.4-46.3); Red Blood Count 4.06 M/uL (4.70-6.10); White Blood Count 4.33 K/ul (4.8-10.8)
[2025-02-02 07:35] LABS: INR 2.1 (0.9-1.1); Prothrombin Time 21.2 Seconds (9.0-12.0)
[2025-02-02 07:36] LABS: Anion Gap 6.0 (3-11); Blood Urea Nitrogen 29.0 mg/dl (6-23); Calcium 8.4 mg/dl (8.6-10.3); Carbon Dioxide 27.0 mmol/L (21-32); Chloride 109.0 mmol/L (98-107); Creatinine Clr Calc Pharmacy 44.9 ml/min; Glucose 99.0 mg/dl (70-99(Fasting)); Magnesium 2.0 mg/dl (1.7-2.4); Potassium 3.9 mmol/L (3.5-5.1); Sodium 142.0 mmol/L (136-145)
--- NOTE | 2025-02-02 07:45 | Vascular Surgery Consultation ---
Date of Consultation February 02, 2025 Assessment & Plan (1) Carotid stenosis, left: noted to have high grade left ICA stenosis on imaging for work up for dizziness, ambulatory dysfunction. Symptoms improved after discontinuing carbamazepine and would be unlikely to be due to carotid stenosis. That being said, would recommend outpatient follow up in next couple of weeks to discuss surgical intervention. We discussed with him and his granddaughter briefly the benefits of CEA/carotid stenting for high grade stenosis, which include stroke risk reduction over the press tender long goods. He is already on optimal medical management as he is on plavix and statin. Would continue these. Follow up in 2-3 weeks as outpatient to discuss further. He is in agreement with plan. History of Present Illness Reason for Consultation: 90% left ICA stenosis Requesting Physician: Dr. Rosa Sprague Attending Physician: Rosa Sprague MD History of Present Illness Mr. Holcomb is an 84 year old gentleman who was admitted on Sunday with nausea, vomiting and dizziness, near fall, who was incidentally found on work up to have 90% stenosis of his left ICA, and vascular surgery has been consulted for further recommendations and facilitate follow up. History was obtained from patient as well as medical records. He has a past medical history significant for DM, CAD, ischemic cardiomyopathy s/p ICD, mitral valve repair, systolic heart failure, HTN, HLD, CKD stage III, aflutter on coumadin, lumbar spinal stenosis, COPD, Nocturnal hypoxia on oxygen at night and trigeminal neuralgia, who presented to ED on 01/31 with dizziness, ambulatory dysfunction, nausea and vomiting after recently starting carb amazepine for pain associated to trigeminal neuralgia, not controlled with increase in gabapentin. In work up for his dizziness and ambulatory dysfunction, imaging was done, which included CTA head and neck to rule out stroke, and was noted to have high grade left ICA stenosis. He did have a CTA neck one year ago due to headache with blurry vision and was noted at that time to have about a 50% stenosis of the LICA at that time. He states he is continuing to have intermittent pain around his left eye, which is not new for him, from his trigeminal neuralgia. He states the dizziness, nausea and vomiting have resolved since stopping the Carbamazepine. He denies any sudden vision loss in one eye, any unilateral extremity weakness, numbness or tingling, or slurred speech. He also denies chest pain, worsening shortness of breath. He is on plavix and statin as well as coumadin. He uses cane at home to help get around. He is right handed. Allergies Allergy/AdvReac Type Severity Reaction Status Date / Time ciprofloxacin Allergy Severe ANAPHYLAXIS Verified 11/10/21 10:28 doxycycline Allergy Severe ANAPHYLAXIS Verified 11/10/21 10:28 Sulfa (Sulfonamide Allergy Severe Anaphylaxis Verified 11/10/21 10:28 Antibiotics) Home Medications Medication Instructions Recorded Confirmed Type atorvastatin 40 mg tablet 40 mg PO PM 12/10/18 01/31/25 History clopidogrel 75 mg tablet 75 mg PO QAM 12/10/18 01/31/25 History fluticasone propionate 50 2 spray intranasal DAILY PRN 12/10/18 01/31/25 History mcg/actuation nasal Allergy Symptoms spray,suspension (Flonase Allergy Relief) isosorbide mononitrate 30 mg 60 mg PO QAM 12/10/18 01/31/25 History tablet,extended release 24 hr magnesium oxide 400 mg PO DAILY 12/10/18 01/31/25 History metoprolol succinate 50 mg See Rx Instructions .Route .COMPLEX 12/10/18 01/31/25 History tablet,extended release 24 hr nitroglycerin 0.4 mg sublingual 0.4 mg sublingual UD PRN Angina 12/10/18 01/31/25 History tablet (Nitrostat) spironolactone 25 mg tablet 25 mg PO QAM 12/10/18 01/31/25 History warfarin 5 mg tablet 5 mg PO QAM 12/10/18 01/31/25 History sacubitril 49 mg-valsartan 51 mg 1 tab PO BID 02/11/21 01/31/25 History tablet (Entresto) tramadol 50 mg tablet 100 mg PO Q6H PRN Pain 02/11/21 01/31/25 History empagliflozin 10 mg tablet 10 mg PO DAILY 08/26/21 01/31/25 History furosemide 20 mg tablet 20 mg PO QAM 08/26/21 01/31/25 History meclizine 12.5 mg tablet 12.5 mg PO TID PRN dizziness #20 08/26/21 01/31/25 Rx tabs ondansetron 4 mg disintegrating 4 mg PO Q8H PRN nausea and 08/26/21 01/31/25 Rx tablet vomiting #30 tabs pantoprazole 20 mg tablet,delayed 20 mg PO DAILY 08/26/21 01/31/25 History release metformin 500 mg tablet,extended 500 mg PO QAM 11/08/21 01/31/25 History release 24 hr gabapentin 100 mg capsule 100 mg PO TID 01/16/24 01/31/25 History carbamazepine 200 mg tablet 200 mg PO BID 14 days #28 tabs 01/29/25 01/31/25 Rx Patient History Medical History Atrial flutter Transient/post operative per cardio records in the past Recently discovered again incidentally during ECHO Ischemic cardiomyopathy EF 20-25% May 2018 Improved to 30-34% per Dec 2020 ECHO Lung nodule HX Depression Anxiety SOB (shortness of breath) on exertion Gout Spinal stenosis Diabetes mellitus, type 2 diet controlled, no meds/was taken off d/t kidney issues Hearing deficit Hypertension Hyperlipidemia Myocardial Infarction 2013--follows with Dr. Jerez On home oxygen therapy 2L N/C when sleeping Chronic obstructive pulmonary disease Surgical History Status post anal fissurectomy Status post trigger finger release History of bilateral carpal tunnel release History of lumbar spinal fusion x2 History of repair of right rotator cuff History of arthroscopy of left knee History of umbilical hernia repair History of colonoscopy History of esophagogastroduodenoscopy (EGD) History of tooth extraction all teeth removed History of cardiac radiofrequency ablation ICD (implantable cardioverter-defibrillator) in place 04/14/15@ [facility]--[employer] Family History Mother Family history of diabetes mellitus Sister Family history of diabetes mellitus Brother Family history of diabetes mellitus Family history of stomach cancer Other No family history of adverse response to anesthesia Social History Smoking Status: Former smoker Tobacco Type: Cigarettes Smoking End Date: 25 years ago; Second Hand Exposure: No; Do You Dip or Chew Tobacco: No; Hx Alcohol Use: No Hx Substance Use: No Preferred Language: Uzbek Communication Ability: Effective Criminal Intelligence Specialist Required: No Beliefs That Will Affect Care: None Current Living Situation: Spouse current occupational status: retired Other Information That Helps Us Care for You: No Feels Safe at Home: Yes Assistive Devices: Cane, Denture - Upper, Denture - Lower, Hearing Aid - Bilateral and Oxygen - at Night Review of Systems Constitutional: Denies fevers, chills, night sweats Eyes: see HPI Respiratory: no shortness of breath, worsening cough or wheezing, wears oxygen at night Cardiovascular: Additional Comments: denies chest pain, palpitations, dyspnea or exertion Musculoskeletal: no joint pain or joint swelling. Has lumbar stenosis and uses cane for assistance with ambulation Integumentary: no rashes, lesions, ulcers, itching Neurologic: see HPI Hematologic / Lymphatic: no history of clotting or bleeding Physical Exam Constitutional: pleasant, sitting up in bed, well developed, well nourished, in no distress ENMT: nasal cannula in place Neck: supple, trachea midline Respiratory: no increased work of breathing or accessory muscle use, CTAB Cardiovascular: regular rate, no murmurs noted. Musculoskeletal: no obvious deformities noted, no tenderness to palpation Strength equal in all extremities Skin: warm and dry, no rashes or lesions noted. Neurologic: CN II-XII grossly intact, no focal deficits noted Results & Data Vital Signs (Past 12 Hours) Vital Signs Temp Pulse Pulse Resp BP Pulse Ox O2 Del Method 02/02/25 07:34 36.7 C 64 18 117/72 97 Nasal Cannula 02/02/25 05:40 58 L 02/02/25 03:27 36.6 C 60 18 112/64 96 Nasal Cannula 02/01/25 23:22 36.9 C 64 16 101/61 96 Nasal Cannula 02/01/25 22:03 64 02/01/25 20:45 Nasal Cannula O2 Flow Rate 02/02/25 07:34 2 02/02/25 05:40 02/02/25 03:27 2 02/01/25 23:22 2 02/01/25 22:03 02/01/25 20:45 2 Laboratory Results 02/02/25 02/02/25 02/01/25 08:05 06:46 20:05 WBC 4.33 L RBC 4.06 L Hgb 12.1 L Hct 37.8 L MCV 93.1 MCH 29.8 MCHC 32.0 RDW Std Deviation 53.8 H RDW Coeff of Chaz 15.6 H Plt Count 119 L MPV 11.8 PT 21.2 H INR 2.1 H Sodium 142 Potassium 3.9 Chloride 109 H Carbon Dioxide 27 Anion Gap 6 BUN 29 H Creatinine 1.43 H Est Cr Clr Drug Dosing 44.9 eGFR 48.92 BUN/Creatinine Ratio 20.3 H Glucose 99 POC Glucose 95 116 H Calcium 8.4 L Phosphorus 2.4 L Magnesium 2.0 02/01/25 02/01/25 17:05 12:08 WBC RBC Hgb Hct MCV MCH MCHC RDW Std Deviation RDW Coeff of Chaz Plt Count MPV PT INR Sodium Potassium Chloride Carbon Dioxide Anion Gap BUN Creatinine Est Cr Clr Drug Dosing eGFR BUN/Creatinine Ratio Glucose POC Glucose 112 H 93 Calcium Phosphorus Magnesium Diagnostic Findings CTA Neck 01/31/25: FINDINGS: No significant stenosis is seen with typical 3 vessel origin at the aortic arch. Right carotid bifurcation shows scattered plaquing with a maximum 30% stenosis at the origin of the right internal carotid artery and no significant right external carotid artery stenosis. The left carotid bifurcation shows a moderately large amount of atherosclerotic plaque with mixed hard and soft components with a high-grade 90% stenosis at the origin of the left internal carotid artery. No significant left external carotid artery stenosis is seen at this time. Vertebral arteries remain patent with the right being moderately dominant in size to the left. The distal left vertebral artery is quite diminutive. IMPRESSION: 1. 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 2. Mild plaque without significant stenosis in the right carotid system. 3. Intact vertebral flow at the distal left vertebral artery being markedly diminutive but patent. Electronically signed by Oliver Marroquin 01-31-2025 6:52 PM Medications Administered Home Medications Medication Instructions Recorded Confirmed Last Taken atorvastatin 40 mg tablet 40 mg PO PM 12/10/18 01/31/25 11/07/21 clopidogrel 75 mg tablet 75 mg PO QAM 12/10/18 01/31/25 11/08/21 fluticasone propionate 50 2 spray intranasal DAILY PRN 12/10/18 01/31/25 Unknown mcg/actuation nasal Allergy Symptoms spray,suspension (Flonase Allergy Relief) isosorbide mononitrate 30 mg 60 mg PO QAM 12/10/18 01/31/25 11/08/21 tablet,extended release 24 hr magnesium oxide 400 mg PO DAILY 12/10/18 01/31/2511/08/22 08:00 metoprolol succinate 50 mg See Rx Instructions .Route .COMPLEX 12/10/18 01/31/25 11/08/21 08:00 tablet,extended release 24 hr nitroglycerin 0.4 mg sublingual 0.4 mg sublingual UD PRN Angina 12/10/18 01/31/25 Unknown tablet (Nitrostat) spironolactone 25 mg tablet 25 mg PO QA 12/10/18 01/31/25 11/08/21 warfarin 5 mg tablet 5 mg PO [facility] 12/10/18 01/31/25 11/08/21 sacubitril 49 mg-valsartan 51 mg 1 tab PO BID 02/11/21 01/31/25 11/08/21 08:00 tablet (Entresto) tramadol 50 mg tablet 100 mg PO Q6H PRN Pain 02/11/21 01/31/25 Unknown empagliflozin 10 mg tablet 10 mg PO DAILY 08/26/21 01/31/25 11/08/21 furosemide 20 mg tablet 20 mg PO [facility] 08/26/21 01/31/25 11/08/21 meclizine 12.5 mg tablet 12.5 mg PO TID PRN dizziness #20 08/26/21 01/31/25 Unknown tabs ondansetron 4 mg disintegrating 4 mg PO Q8H PRN nausea and 08/26/21 01/31/25 Unknown tablet vomiting #30 tabs pantoprazole 20 mg tablet,delayed 20 mg PO DAILY 08/26/21 01/31/25 11/08/21 release metformin 500 mg tablet,extended 500 mg PO [facility] 11/08/21 01/31/25 11/08/21 release 24 hr gabapentin 100 mg capsule 100 mg PO TID 01/16/24 01/31/25 Unknown carbamazepine 200 mg tablet 200 mg PO BID 14 days #28 tabs 01/29/25 01/31/25 Unknown Active Medications Generic Name Dose Route Start Last Admin Trade Name Freq PRN Reason Stop Dose Admin Atorvastatin Calcium 40 mg 01/31/25 21:00 02/01/25 20:50 Atorvastatin 40 Mg Tab PO 03/02/25 20:59 40 mg PM ZANDER Administration Clopidogrel Bisulfate 75 mg 02/01/25 09:00 02/02/25 07:51 Clopidogrel Bisulfate 75 Mg Tab PO 03/03/25 08:59 75 mg QAM ZANDER Administration Empagliflozin 10 mg 02/01/25 09:00 02/02/25 07:52 Empagliflozin 10 Mg Tab PO 03/03/25 08:59 10 mg DAILY ZANDER Administration Furosemide 20 mg 02/02/25 09:00 02/02/25 07:48 Furosemide 20 Mg Tab PO 03/04/25 08:59 20 mg QAM ZANDER Administration Gabapentin 100 mg 01/31/25 21:00 02/02/25 07:50 Gabapentin 100 Mg Cap PO 03/02/25 20:59 100 mg TID ZANDER Administration Insulin Aspart 0 units 01/31/25 21:00 02/02/25 10:01 Insulin Aspart Per Unit Charge SC 03/02/25 20:59 2 units ACHS ZANDER Administration Isosorbide Mononitrate 30 mg 02/01/25 09:00 02/02/25 07:47 Isosorbide [place] Extended Rel 30 Mg Tabcr PO 03/03/25 08:59 30 mg QAM ZANDER Administration Magnesium Oxide 400 mg 02/01/25 09:00 02/02/25 07:49 Magnesium Oxide 400 Mg Tab PO 03/03/25 08:59 400 mg DAILY ZANDER Administration Meclizine HCl 12.5 mg 01/31/25 20:10 02/01/25 08:46 Meclizine 12.5 Mg Tab PO 03/02/25 20:09 12.5 mg TID PRN Administration dizziness Metoprolol Succinate 75 mg 02/01/25 09:00 02/02/25 07:49 Metoprolol Succ 25mg Ext Rel Tab PO 03/03/25 08:59 75 mg QAM ZANDER Administration Metoprolol Succinate 50 mg 01/31/25 21:00 02/01/25 20:50 Metoprolol Succ 50mg Ext Rel Tab PO 03/02/25 20:59 50 mg QPM ZANDER Administration Pantoprazole Sodium 20 mg 02/01/25 09:00 02/02/25 07:50 Pantoprazole 40 Mg Tab PO 03/03/25 08:59 20 mg DAILY ZANDER Administration Potassium Phosphate 1 tab 02/02/25 09:00 02/02/25 08:02 Pot Phosphate Monobasic W/ Sod Tab PO 03/04/25 08:59 1 tab QID ZANDER Administration Sacubitril/Valsartan 1 tab 02/01/25 09:00 02/02/25 07:47 Valsartan/Sacubitril 26/24mg Tab PO 03/03/25 08:59 1 tab BID ZANDER Administration Warfarin Sodium 5 mg 02/01/25 16:00 02/01/25 18:45 Warfarin Sod 5 Mg Tab PO 03/03/25 15:59 5 mg DAILY@1600 ZANDER Administration PG Care Time/CCT Total # of Minutes Spent Total Time Spent with Patient: Total time spent is greater than 50% in coordination of care (as documented) at patient's floor/unit and/or counseling patient: [place] [address] INT INP/OBS CARE 2/55MIN Patient Type New History Expanded Problem Focused Exam Detailed Medical Decision Making High Complexity Diagnoses Carotid stenosis, left I65.22
[2025-02-02] MEDS: FUROSEMIDE 20 MG TAB PO SCH (07:48)
[2025-02-02] MEDS: POT PHOSPHATE MONOBASIC W/ SOD TAB PO SCH (08:02)
--- NOTE | 2025-02-02 13:44 | Neurology Consultation ---
Date of Consultation February 02, 2025 Assessment & Plan (1) Dizziness: Dizziness with N/V suspected relation to carbamazepine Agree with discontinuation of carbamazepine Recommend initiate pregabalin 75mg PO BID and discontinue gabapentin May benefit from MRI brain with and without contrast as well as TTE if symptoms persist Recommend continued monitoring of orthostatic vital signs Continue frequent neurological assessments Obtain stat CT brain without contrast for any acute neurological decline Continue to monitor/control blood pressure & blood glucose Continue to monitor telemetry closely Agree with continued full anticoagulation and antiplatelet medication as previously prescribed Continue to monitor for s/s of hemorrhage Continue to monitor renal and hepatic function, keep euvolemic Metabolic workup should include hgbA1c, fasting lipids Continue high dose statin therapy indefinitely if tolerated Ok from neurology perspective for VTE prophylaxis PT/OT/SLT to eval and treat Recommend eval for SHI and consider outpatient polysomnography Follow up outpatient with neurology 4-6 weeks (2) Carotid stenosis, left: Agree with vascular surgery consultation Telehealth Consultation Telehealth Information Telehealth Information: I performed this visit using a real-time telehealth connection between my location and the patients originating location ([facility]). After connecting through interactive tele-video, patient was identified by name and date of and/or wristband check.Patient (or authorized healthcare u.s. representative) was informed that this was a telemedicine visit and it was being conducted confidentially over secure lines. My office door was closed and no one else was present in the room with me.Patient (or authorized healthcare u.s. representative) provided consent to proceed with the visit, expressed an understanding of privacy and security of the telemedicine visit, and gave permission to have a hospital u.s. representative in the room in order to assist with the visit and to conduct portions of the visit, as needed. I informed the patient (or authorized healthcare u.s. representative) that I reviewed their record and presented the opportunity for them to ask any questions regarding the visit today. The patient agreed to participate. History of Present Illness Reason for Consultation: Trigeminal neuralgia. dizziness Requesting Physician: Dr. Sprague Attending Physician: Rosa Sprague MD History of Present Illness 84yo male with hx of trigeminal neuralgia as well as CAD, CKD, Aflutter, HFrEF, COPD, dyslipidemia, CAD, [place], s/p ICD presented with ongoing near syncope/dizziness feeling as well as reported lightheadedness and N/V. He has undergone CTA head & neck revealing significant left ICA stenosis. I have performed televideo consultation. He is alert & oriented; able to answer all questions appropriately, name objects on televideo monitor, repeat phrases and perform complex/embedded commands without deficit. Neurological exam is non lateralizing/nonfocal in terms of motor strength and coordination. He was recently started on carbamazepine and reports symptoms seem to have worsened s vicki then. Carbamazepine has been held and he now reports improvement in symptoms. Allergies Allergy/AdvReac Type Severity Reaction Status Date / Time ciprofloxacin Allergy Severe ANAPHYLAXIS Verified 11/10/21 10:28 doxycycline Allergy Severe ANAPHYLAXIS Verified 11/10/21 10:28 Sulfa (Sulfonamide Allergy Severe Anaphylaxis Verified 11/10/21 10:28 Antibiotics) Home Medications Medication Instructions Recorded Confirmed Type atorvastatin 40 mg tablet 40 mg PO PM 12/10/18 01/31/25 History clopidogrel 75 mg tablet 75 mg PO QAM 12/10/18 01/31/25 History fluticasone propionate 50 2 spray intranasal DAILY PRN 12/10/18 01/31/25 History mcg/actuation nasal Allergy Symptoms spray,suspension (Flonase Allergy Relief) magnesium oxide 400 mg PO DAILY 12/10/18 01/31/25 History metoprolol succinate 50 mg See Rx Instructions .Route .COMPLEX 12/10/18 01/31/25 History tablet,extended release 24 hr nitroglycerin 0.4 mg sublingual 0.4 mg sublingual UD PRN Angina 12/10/18 01/31/25 History tablet (Nitrostat) spironolactone 25 mg tablet 25 mg PO QAM 12/10/18 01/31/25 History warfarin 5 mg tablet 5 mg PO QAM 12/10/18 01/31/25 History tramadol 50 mg tablet 100 mg PO Q6H PRN Pain 02/11/21 01/31/25 History empagliflozin 10 mg tablet 10 mg PO DAILY 08/26/21 01/31/25 History furosemide 20 mg tablet 20 mg PO QAM 08/26/21 01/31/25 History meclizine 12.5 mg tablet 12.5 mg PO TID PRN dizziness #20 08/26/21 01/31/25 Rx tabs ondansetron 4 mg disintegrating 4 mg PO Q8H PRN nausea and 08/26/21 01/31/25 Rx tablet vomiting #30 tabs pantoprazole 20 mg tablet,delayed 20 mg PO DAILY 08/26/21 01/31/25 History release metformin 500 mg tablet,extended 500 mg PO QAM 11/08/21 01/31/25 History release 24 hr isosorbide mononitrate 30 mg 30 mg PO QAM #30 tabs 02/02/25 Rx tablet,extended release 24 hr pregabalin 75 mg capsule (Lyrica) 75 mg PO BID #60 caps 02/02/25 Rx sacubitril 24 mg-valsartan 26 mg 1 tab PO BID #60 tabs 02/02/25 Rx tablet (Entresto) Patient History Medical History Atrial flutter Transient/post operative per cardio records in the past Recently discovered again incidentally during ECHO Ischemic cardiomyopathy EF 20-25% May 2018 Improved to 30-34% per Dec 2020 ECHO Lung nodule HX Depression Anxiety SOB (shortness of breath) on exertion Gout Spinal stenosis Diabetes mellitus, type 2 diet controlled, no meds/was taken off d/t kidney issues Hearing deficit Hypertension Hyperlipidemia Myocardial Infarction 2013--follows with Dr. Jerez On home oxygen therapy 2L N/C when sleeping Chronic obstructive pulmonary disease Surgical History Status post anal fissurectomy Status post trigger finger release History of bilateral carpal tunnel release History of lumbar spinal fusion x2 History of repair of right rotator cuff History of arthroscopy of left knee History of umbilical hernia repair History of colonoscopy History of esophagogastroduodenoscopy (EGD) History of tooth extraction all teeth removed History of cardiac radiofrequency ablation ICD (implantable cardioverter-defibrillator) in place 04/14/15@ [facility]--[employer] Family History Mother Family history of diabetes mellitus Sister Family history of diabetes mellitus Brother Family history of diabetes mellitus Family history of stomach cancer Other No family history of adverse response to anesthesia Social History Smoking Status: Former smoker Tobacco Type: Cigarettes Smoking End Date: 25 years ago; Second Hand Exposure: No; Do You Dip or Chew Tobacco: No; Hx Alcohol Use: No Hx Substance Use: No Preferred Language: Vietnamese Communication Ability: Effective Natural Resources Specialist Required: No Beliefs That Will Affect Care: None Current Living Situation: Spouse current occupational status: retired Other Information That Helps Us Care for You: No Feels Safe at Home: Yes Assistive Devices: Cane Physical Exam Neurological Examination: Mental Status: Awake and alert. Oriented to person, place, and time. Fluency naming repetition and comprehension appear grossly intact. Affect remains appropriate. CN testing: I: Deferred II: Reports no changes in visual acuity III/IV/: No evidence of gaze preference, hippus, nystagmus or roving eye movements V: Facial sensation reportedly grossly intact to light touch bilaterally VII: Facial movements appear without evidence of asymmetry VIII: Hearing appears grossly intact to loud voice bilaterally IX/X: Palate is unable to be accurately visualized XI: Shoulder shrug appears symmetric/ grossly intact bilaterally XII: Tongue protrudes midline without evidence of biting Motor exam: Strength appears grossly intact in all extremities Tone: Unable to accurately assess via telemedicine Sensory: Sensation is reportedly grossly intact throughout Coordination: No apparent evidence of dysmetria or dysdiadochokinesia Reflexes: Unable to accurately assess via telemedicine Gait: Deferred Results & Data Vital Signs (Past 12 Hours) Vital Signs Temp Pulse Pulse Resp BP Pulse Ox O2 Del Method 02/02/25 11:52 36.8 C 59 L 18 119/58 L 95 Room Air 02/02/25 07:34 36.7 C 64 18 117/72 97 Nasal Cannula 02/02/25 05:40 58 L 02/02/25 03:27 36.6 C 60 18 112/64 96 Nasal Cannula O2 Flow Rate 02/02/25 11:52 02/02/25 07:34 2 02/02/25 05:40 02/02/25 03:27 2 Laboratory Results Abnormal lab results 02/01/25 02/01/25 02/02/25 Range/Units 17:05 20:05 06:46 WBC 4.33 L (4.8-10.8) K/ul RBC 4.06 L (4.70-6.10) M/uL Hgb 12.1 L (14.0-18.0) g/dl Hct 37.8 L (42.0-52.0) % RDW Std Deviation 53.8 H (36.4-46.3) fL RDW Coeff of Chaz 15.6 H (11.5-14.5) % Plt Count 119 L (130-400) K/uL PT 21.2 H (9.0-12.0) Seconds INR 2.1 H (0.9-1.1) Chloride 109 H (98-107) mmol/L BUN 29 H (6-23) mg/dl Creatinine 1.43 H (0.6-1.4) mg/dl BUN/Creatinine Ratio 20.3 H (10-20) POC Glucose 112 H 116 H (70-99) mg/dl Calcium 8.4 L (8.6-10.3) mg/dl Phosphorus 2.4 L (2.5-4.9) mg/dl 02/02/25 Range/Units 12:09 WBC (4.8-10.8) K/ul RBC (4.70-6.10) M/uL Hgb (14.0-18.0) g/dl Hct (42.0-52.0) % RDW Std Deviation (36.4-46.3) fL RDW Coeff of Chaz (11.5-14.5) % Plt Count (130-400) K/uL PT (9.0-12.0) Seconds INR (0.9-1.1) Chloride (98-107) mmol/L BUN (6-23) mg/dl Creatinine (0.6-1.4) mg/dl BUN/Creatinine Ratio (10-20) POC Glucose 100 H (70-99) mg/dl Calcium (8.6-10.3) mg/dl Phosphorus (2.5-4.9) mg/dl Diagnostic Findings Exam: CT angiogram head without and with contrast. Reason for exam: Dizziness. Previous studies: 01/16/2024. FINDINGS: Unenhanced images of the head show marked diffuse atrophy and lucency of the deep white matter. No acute intracranial mass, hemorrhage or edema is seen. No extra-axial blood or fluid collection or midline shift is noted. No acute process of the bony calvarium is seen. Mastoids and visualized sinuses remain clear. Intact flow is seen in the distal internal carotid arteries with mild plaquing but no significant intracranial stenosis or acute thrombus identified. Intact flow is seen in the [place] bilaterally again without major stenosis or occlusion. The distal left vertebral artery is quite diminutive but remains patent. Flow in the basilar and posterior circulation appears intact. No aneurysm or hemorrhage is identified. No significant abnormal parenchymal enhancement is identified. IMPRESSION: 1. Negative for acute intracranial process. 2. Diffuse atrophy and chronic ischemic angiopathy deep white matter. 2. Mild atherosclerotic plaquing distal internal carotid arteries without major intracranial stenosis, occlusion, thrombus or aneurysm found at this time. Electronically signed by Oliver Marroquin 01-31-2025 6:58 PM Exam: CT angiogram of the neck. Reason for exam: Dizziness Previous studies: 01/16/2024 FINDINGS: No significant stenosis is seen with typical 3 vessel origin at the aortic arch. Right carotid bifurcation shows scattered plaquing with a maximum 30% stenosis at the origin of the right internal carotid artery and no significant right external carotid artery stenosis. The left carotid bifurcation shows a moderately large amount of atherosclerotic plaque with mixed hard and soft components with a high-grade 90% stenosis at the origin of the left internal carotid artery. No significant left external carotid artery stenosis is seen at this time. Vertebral arteries remain patent with the right being moderately dominant in size to the left. The distal left vertebral artery is quite diminutive. IMPRESSION: 1. 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 2. Mild plaque without significant stenosis in the right carotid system. 3. Intact vertebral flow at the distal left vertebral artery being markedly diminutive but patent. Electronically signed by Oliver Marroquin 01-31-2025 6:52 PM Medications Administered Home Medications Medication Instructions Recorded Confirmed Last Taken atorvastatin 40 mg tablet 40 mg PO PM 12/10/18 01/31/25 11/07/21 clopidogrel 75 mg tablet 75 mg PO QAM 12/10/18 01/31/25 11/08/21 fluticasone propionate 50 2 spray intranasal DAILY PRN 12/10/18 01/31/25 Unknown mcg/actuation nasal Allergy Symptoms spray,suspension (Flonase Allergy Relief) magnesium oxide 400 mg PO DAILY 12/10/18 01/31/25 11/08/21 08:00 metoprolol succinate 50 mg See Rx Instructions .Route .COMPLEX 12/10/18 01/31/25 11/08/21 08:00 tablet,extended release 24 hr nitroglycerin 0.4 mg sublingual 0.4 mg sublingual UD PRN Angina 12/10/18 01/31/25 Unknown tablet (Nitrostat) spironolactone 25 mg tablet 25 mg PO QAM 12/10/18 01/31/25 11/08/21 warfarin 5 mg tablet 5 mg PO QAM 12/10/18 01/31/25 11/08/21 sacubitril 49 mg-valsartan 51 mg 1 tab PO BID 02/11/21 01/31/25 11/08/21 08:00 tablet (Entresto) tramadol 50 mg tablet 100 mg PO Q6H PRN Pain 02/11/21 01/31/25 Unknown empagliflozin 10 mg tablet 10 mg PO DAILY 08/26/21 01/31/25 11/08/21 furosemide 20 mg tablet 20 mg PO QAM 08/26/21 01/31/25 11/08/21 meclizine 12.5 mg tablet 12.5 mg PO TID PRN dizziness #20 08/26/21 01/31/25 Unknown tabs ondansetron 4 mg disintegrating 4 mg PO Q8H PRN nausea and 08/26/21 01/31/25 Unknown tablet vomiting #30 tabs pantoprazole 20 mg tablet,delayed 20 mg PO DAILY 08/26/21 01/31/25 11/08/21 release metformin 500 mg tablet,extended 500 mg PO QAM 11/08/21 01/31/25 11/08/21 release 24 hr gabapentin 100 mg capsule 100 mg PO TID 01/16/24 01/31/25 Unknown carbamazepine 200 mg tablet 200 mg PO BID 14 days #28 tabs 01/29/25 01/31/25 Unknown isosorbide mononitrate 30 mg 30 mg PO QAM #30 tabs 02/02/25 Unknown tablet,extended release 24 hr sacubitril 24 mg-valsartan 26 mg 1 tab PO BID #60 tabs 02/02/25 Unknown tablet (Entresto) Active Medications Generic Name Dose Route Start Last Admin Trade Name Freq PRN Reason Stop Dose Admin Atorvastatin Calcium 40 mg 01/31/25 21:00 02/01/25 20:50 Atorvastatin 40 Mg Tab PO 03/02/25 20:59 40 mg PM ZANDER Administration Clopidogrel Bisulfate 75 mg 02/01/25 09:00 02/02/25 07:51 Clopidogrel Bisulfate 75 Mg Tab PO 03/03/25 08:59 75 mg QAM ZANDER Administration Empagliflozin 10 mg 02/01/25 09:00 02/02/25 07:52 Empagliflozin 10 Mg Tab PO 03/03/25 08:59 10 mg DAILY ZANDER Administration Furosemide 20 mg 02/02/25 09:00 02/02/25 07:48 Furosemide 20 Mg Tab PO 03/04/25 08:59 20 mg QAM ZANDER Administration Gabapentin 100 mg 01/31/25 21:00 02/02/25 13:01 Gabapentin 100 Mg Cap PO 03/02/25 20:59 100 mg TID ZANDER Administration Insulin Aspart 0 units 01/31/25 21:00 02/02/25 13:01 Insulin Aspart Per Unit Charge SC 03/02/25 20:59 3 units ACHS ZANDER Administration Isosorbide Mononitrate 30 mg 02/01/25 09:00 02/02/25 07:47 Isosorbide [place] Extended Rel 30 Mg Tabcr PO 03/03/25 08:59 30 mg QAM ZANDER Administration Magnesium Oxide 400 mg 02/01/25 09:00 02/02/25 07:49 Magnesium Oxide 400 Mg Tab PO 03/03/25 08:59 400 mg DAILY ZANDER Administration Meclizine HCl 12.5 mg 01/31/25 20:10 02/01/25 08:46 Meclizine 12.5 Mg Tab PO 03/02/25 20:09 12.5 mg TID PRN Administration dizziness Metoprolol Succinate 75 mg 02/01/25 09:00 02/02/25 07:49 Metoprolol Succ 25mg Ext Rel Tab PO 03/03/25 08:59 75 mg QAM ZANDER Administration Metoprolol Succinate 50 mg 01/31/25 21:00 02/01/25 20:50 Metoprolol Succ 50mg Ext Rel Tab PO 03/02/25 20:59 50 mg QPM ZANDER Administration Pantoprazole Sodium 20 mg 02/01/25 09:00 02/02/25 07:50 Pantoprazole 40 Mg Tab PO 03/03/25 08:59 20 mg DAILY ZANDER Administration Potassium Phosphate 1 tab 02/02/25 09:00 02/02/25 13:01 Pot Phosphate Monobasic W/ Sod Tab PO 03/04/25 08:59 1 tab QID ZANDER Administration Sacubitril/Valsartan 1 tab 02/01/25 09:00 02/02/25 07:47 Valsartan/Sacubitril 26/24mg Tab PO 03/03/25 08:59 1 tab BID ZANDER Administration Warfarin Sodium 5 mg 02/01/25 16:00 02/01/25 18:45 Warfarin Sod 5 Mg Tab PO 03/03/25 15:59 5 mg DAILY@1600 ZANDER Administration
--- NOTE | 2025-02-02 15:00 | Discharge Summary ---
Discharge Summary Date of Service February 02, 2025 Principal Dx & Hospital Course #1 = Principal Diagnosis (1) Trigeminal neuralgia pain: (2) Dizziness: (3) Adverse drug reaction: Mr. 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 Patient with multiple contributing factors. Patient reports BP often is in low 90s, but at times in 70-80s on current BP regimen Patient also noted to have 90% left ICA stenosis Additionally, patient started on carbamazepine which seemingly precipitated the nausea and vomiting. Patient reports feeling well on day of discharge. Blood pressures in low 110s with changes in regimen. ECHO reviewed and EF improved from last studies at 35-40% Vascular evaluated patient with plans for OP follow up to discuss mgmt of ICA stenosis. Neurology evaluated patient and recommended discontinuing the gabapentin and stating lyrica bid. #Dizziness #Ambulatory Dysfunction #Left ICA senosis CTA Head:1. Negative for acute intracranial process. Diffuse atrophy and chronic ischemic angiopathy deep white matter. Mild atherosclerotic plaquing distal internal carotid arteries without major intracranial stenosis, occlusion, thrombus or aneurysm found at this time. Neck CTA:. 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 Mild plaque without significant stenosis in the right carotid system. Intact vertebral flow at the distal left vertebral artery being markedly diminutive but patent. MRI not able to be obtained iso ICD multifactorial iso polypharmacy (reports of SBP in 70-80s at home), ICA stenosis, recent nausea/vomiting Orthostatics negative ECHO with EF 35-40% Neurology consulted for below Vascular consulted to aid in OP follow up, further recommendations for mgmt -Continue statin and plavix -Follow up OP in 2-[address] 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 April 2014 #Prior aspiration thrombectomy, STEMI Status post single-chamber prophylactic defibrillator, 04/14/2015.Medtronic, model Reduce entresoand imdur Continue Metoprolol reduce imdur continue jardiance continue lasix #Transient postoperative atrial flutter without recurrence #AV bridgett reentry tachycardia s/p ablation 2015 #Atrial flutter, paroxysmal s/p cardioversion 2020 #Chronic ventricular ectopy monitor on tele continue metoprolol continue Coumadin, INR 2.5 #Chronic renal insufficiency stage III stable CTM #DM Type II: 7.2% HbA1c basal bolus while admitted #Hyperlipidemia Continue statin #COPD--no signs of exacerbation #Nocturnal hypoxia Prior tobacco use Not on any maintenance inhalers Continue supplemental oxygen at bedtime Other chronic conditions Perianal fistula s/p fistula ostomy Lumbar spinal stenosis Notes For Next Care Provider Medication Changes From Visit Reduced entresto to 24-26 Reduced Imdur from 60mg to 30mg Discontinue carbamazepine Discontinue gabapentin Start Lyrica 75mg bid Admission HPI Per Admitting Provider Patient is a 84-year-old male with history of diabetes mellitus, hypertension, hyperlipidemia, COPD, nocturnal hypoxia, systolic heart failure, coronary artery disease, mitral valve repair, ischemic cardiomyopathy S/P ICD, CKD stage III, perianal fistula s/p fistula ostomy, lumbar spinal stenosis, atrial flutter on chronic anticoagulation with Coumadin, trigeminal neuralgia and other medical problems presents with history of dizziness, nausea, ambulatory dysfunction. Patient states that he has been having intermittent left facial pain especially around his eye over the past 1 year for which he has been evaluated in the ED 1 week ago and his gabapentin dose was increased to 200 mg [address] head and neck were unremarkable at the time. Patient also had been seen by PCP prior to ED visit and was prescribed prednisone tapering course which helped with his symptoms. Patient had persistent persistent symptoms despite increased gabapentin and was evaluated by ED again 2 days ago and was prescribed Carbamazepine. After taking Carbamazepine, patient started to have significant nausea associated with dizziness and balance issues. He admits to have a near fall yesterday but family was able to catch him prior to falling on the ground. He describes dizziness as " room spinning sensation" associated with nausea and has been using cane to ambulate at home which was unusual for him. His left patient with pain is currently controlled. Denies any history of chest pain, dyspnea, cough, fever, chills, head trauma, syncope, headache, focal weakness, change in vision, nausea, vomiting, abdominal pain, dysuria, hematuria. Admission Exam Per Admitting Provider Physical Exam: Vitals signs as noted above General Appearance:Moderately built and nourished, no apparent distress Head: normocephalic, Atraumatic Eyes: normal inspection, EOMI Neck: supple, Trachea midline Respiratory/Chest: Normal breath sounds, CTA, No accessory muscle use Cardiovascular: S1, S2, No murmur Abdomen/GI:Soft, Non tender, Bowel sounds present Extremities/Musculoskeletal:normal inspection, no edema Neurologic/Psych:AAOX3, grossly no focal neurological deficits,+ decreased hearing,+ hearing aids Skin: normal color, warm Discharge Exam Constitutional WD/WN, vitals as above Respiratory normal respiratory effort, lungs clear to auscultation Cardiovascular RRR, no murmur, no edema Gastrointestinal (Abdomen) normal bowel sounds, soft, nontender, no hepatosplenomegaly Updated Medication List Medication Instructions Recorded Confirmed Type atorvastatin 40 mg tablet 40 mg PO PM 12/10/18 01/31/25 History clopidogrel 75 mg tablet 75 mg PO QAM 12/10/18 01/31/25 History fluticasone propionate 50 2 spray intranasal DAILY PRN 12/10/18 01/31/25 History mcg/actuation nasal Allergy Symptoms spray,suspension (Flonase Allergy Relief) magnesium oxide 400 mg PO DAILY 12/10/18 01/31/25 History metoprolol succinate 50 mg See Rx Instructions .Route .COMPLEX 12/10/18 01/31/25 History tablet,extended release 24 hr nitroglycerin 0.4 mg sublingual 0.4 mg sublingual UD PRN Angina 12/10/18 01/31/25 History tablet (Nitrostat) spironolactone 25 mg tablet 25 mg PO QAM 12/10/18 01/31/25 History warfarin 5 mg tablet 5 mg PO QAM 12/10/18 01/31/25 History tramadol 50 mg tablet 100 mg PO Q6H PRN Pain 02/11/21 01/31/25 History empagliflozin 10 mg tablet 10 mg PO DAILY 08/26/21 01/31/25 History furosemide 20 mg tablet 20 mg PO QAM 08/26/21 01/31/25 History meclizine 12.5 mg tablet 12.5 mg PO TID PRN dizziness #20 08/26/21 01/31/25 Rx tabs ondansetron 4 mg disintegrating 4 mg PO Q8H PRN nausea and 08/26/21 01/31/25 Rx tablet vomiting #30 tabs pantoprazole 20 mg tablet,delayed 20 mg PO DAILY 08/26/21 01/31/25 History release metformin 500 mg tablet,extended 500 mg PO QAM 11/08/21 01/31/25 History release 24 hr isosorbide mononitrate 30 mg 30 mg PO QAM #30 tabs 02/02/25 Rx tablet,extended release 24 hr pregabalin 75 mg capsule (Lyrica) 75 mg PO BID #60 caps 02/02/25 Rx sacubitril 24 mg-valsartan 26 mg 1 tab PO BID #60 tabs 02/02/25 Rx tablet (Entresto) Hospital Stay Data Consultations 01/31/25 17:33 ED Decision to Admit Stat 01/31/25 19:10 Consult Neurology Routine 02/01/25 08:23 Consult Vascular Surgery Routine Diagnostic Imagining Performed 01/31/25 15:23 CT angio head wo/w Stat CT angio neck with con Stat Pending Results Patient Have Any Pending Studies at Discharge: No Discharge Instructions Given to Patient (Per Discharging Provider) You were admitted for nausea, vomiting, and dizziness due to new medication started called Carbamazepine. It was also noted that you were experiencing low pressures in the 70s-80s on your home regimen of blood pressure pills. The following changes were made: Reduce your Entresto from 49-51 to 24-26mg two times a day. This was sent to your pharmacy Reduce your Imdur from 60mg to 30mg daily Discontinue Carbamazepine Discontinue Gabapentin Start Lyrica 75mg two times a day for trigeminal neuralgia Please follow up with your Cardiogist and continue to track your blood pressures Please follow up with neurology to adjust your medications for your trigeminal neuralgia Please make a follow up with Dr. Palma in 2-3 weeks to discuss your narrowing in the vessels of the left side of your neck. Total Time Total Time Spent Total Time Spent (In Minutes): 55
[2025-02-02 15:20] VITALS: BP 138/78; TEMP 97.7; O2SAT 94
[2025-02-02 16:28] VITALS: PULSE 69
== END 2025-02-02 16:51 | disposition home or self-care (01) | DRG 149 ==
LOC: ED 14:59 → 2N 18:40 → SUATTDRO 18:40 → 2N 19:48